=== PATIENT | female | born 1945 | race Caucasian/White ===

== ENCOUNTER 2017-01-14 09:06 | Outpatient (CLI) | payer MEDICARE, OTHER ==
[2017-01-14 09:33] LABS: CREATININE 0.8 mg/dL (0.4-1.0)
[2017-01-14] MEDS ORDERED: IOPAMIDOL-300 100 ML VIAL ONE (10:06)
[2017-01-14] MEDS ORDERED: IOPAMIDOL-300 100 ML VIAL IVP ONE (12:22)
--- NOTE | 2017-01-14 13:11 | CT Report ---
EXAM: CT CHEST EXAM DATE: 01/14/2017 12:18 PM. CLINICAL HISTORY: Abnormal chest x-ray with possible right lung mass. COMPARISONS: X-ray from 01/10/2017. TECHNIQUE: Routine helical CT imaging was performed through the chest. IV contrast: None. Reconstruct ions: Coronal and sagittal. In accordance with CT protocol optimization, one or more of the following dose reduction techniques w ere utilized for this exam: automated exposure control, adjustment of mA and/or KV based on patient s ize, or use of iterative reconstructive technique. FINDINGS: Lungs/Pleura: In a background of centrilobular emphysematous changes, there is a lobulated mass in th e right middle lobe measuring 5.2 x 5.4 x 4.3 cm. There are radiating spicules from the mass. Depende nt atelectatic changes otherwise seen at the lung bases. Mediastinum: Mildly prominent right hilar lymph node, measuring up to 1.3 cm in short axis dimension. Heart size grossly within normal limits. There is no pericardial effusion. Bones: Mild bony degenerative changes present. Visualized Abdomen: Unremarkable. Other: None. IMPRESSION: 1. In a background of centrilobular emphysematous changes, lobulated mass in the right middle lobe me asuring up to 5.4 cm suggestive of malignancy. There is associated mild right hilar lymph node promin ence measuring up to 1.3 cm in short axis dimension. 2. Mild bony degenerative changes [facility] Referring Provider Line: [phone] SITE ID: [id number]
== END 2017-01-14 09:07 | disposition home or self-care (01) ==
LOC: LAB 09:06
PROVIDERS: ATTEND Physician Assistant
DX: R91.8 Other nonspecific abnormal finding of lung field (principal); R80.9 Proteinuria, unspecified; R31.9 Hematuria, unspecified; Z87.891 Personal history of nicotine dependence
CPT/HCPCS: 71260; 82565; Q9967

== ENCOUNTER 2017-03-01 14:01 | Emergency (ER) | payer MEDICARE, OTHER ==
[2017-03-01] MEDS ORDERED: IOPAMIDOL-300 100 ML VIAL IVP ONE ×2 (14:02→15:07)
[2017-03-01] MEDS ORDERED: SODIUM CHLORIDE 0.9% 1,000 ML IV ONE ×2 (14:19)
[2017-03-01] MEDS ORDERED: IPRATROPIUM/ALBUTEROL 3 ML NEB INH STA (14:19)
--- NOTE | 2017-03-01 14:22 | ED Physician Documentation ---
PD HPI DYSPNEA - Stated complaint Stated Complaint: SOA - Chief complaint Chief Complaint: Resp - History obtained from History obtained from: Patient, Family - History of Present Illness Timing - onset: How many days ago (several) Timing - onset during: Rest Timing - duration: Days (several) Timing - details: Gradual onset Pain level max: 6 Pain level now: 6 Inciting event(s): URI (fever, cough) Improved by: Rest Worsened by: Exertion Associated symptoms: Fever (subjective), Cough, Wheezing, Chest pain / discomfort (pressure since yesterday) Recently seen: Other (bronchoscopy with biopsy on 02/23 at for a lung mass.) Review of Systems Ten Systems: 10 systems reviewed and negative Cardiac: reports: Chest pain / pressure Respiratory: reports: Cough GI: denies: Abdominal Pain, Nausea, Vomiting, Diarrhea Skin: denies: Rash Musculoskeletal: denies: Neck pain, Back pain Neurologic: denies: Headache PD PAST MEDICAL HISTORY - Past Medical History Past Medical History: Yes Other Past Medical History: possible lung CA getting worked up for it right now - Past Surgical History Past Surgical History: Yes HEENT: Tonsil/Adenoidectomy - Present Medications Home Medications: Ambulatory Orders Medication Instructions Recorded Confirmed Albuterol Sulf [Ventolin Hfa 2 puffs INH Q4HR PRN #1 inhaler 03/01/17 Inhaler] Hydrocodone/Acetaminophen 1 - 2 each PO Q6H PRN #10 tablet 03/01/17 [Hydrocodon-Acetaminophen 5-325] predniSONE [Prednisone] 40 mg PO DAILY #10 tablet 03/01/17 - Allergies Allergies/Adverse Reactions: Allergies Allergy/AdvReac Type Severity Reaction Status Date / Time ibuprofen Allergy Unknown Verified 03/01/17 14:09 Penicillins Allergy Unknown Verified 03/01/17 14:09 - Social History Does the pt smoke?: No Smoking Status: Never smoker Does the pt have substance abuse?: No - POLST Patient has POLST: No PD ED PE NORMAL - Vitals Vital signs reviewed: Yes - General General: Alert and oriented X 3, No acute distress - HEENT HEENT: Moist mucous membranes - Neck Neck: Supple, no meningeal sign - Cardiac Cardiac: Other (tachycardia) - Respiratory Respiratory: No respiratory distress, Other (wheezing B) - Abdomen Abdomen: Soft, Non tender, Non distended - Derm Derm: Warm and dry - Neuro Neuro: Alert and oriented X 3 - Psych Psych: Normal mood, Normal affect Results - Vitals Vitals: Vital Signs - 24 hr 03/01/17 03/01/17 03/01/17 14:04 14:25 14:37 Temperature 36.5 C Heart Rate 117 H 113 H 112 H Respiratory 22 18 18 Rate Blood Pressure 164/98 H 148/87 H O2 Saturation 97 96 03/01/17 03/01/17 03/01/17 15:03 15:51 16:24 Temperature Heart Rate 110 H 106 H 109 H Respiratory 18 19 20 Rate Blood Pressure 135/88 H 141/93 H O2 Saturation 98 95 94 Oxygen O2 Source Nasal cannula Oxygen Flow Rate 2 - EKG (time done) 1409 Rate: Rate (enter#) (114) Rhythm: Sinus tachycardia Gary: Normal Intervals: Normal SC QRS: Normal Ischemia: Normal ST segments, Q waves (II, III, aVF) Computer interpretation: Agree with computer - Labs Labs: Laboratory Tests 03/01/17 03/01/17 03/01/17 14:14 14:14 14:14 WBC 16.9 H RBC 4.84 Hgb 14.7 Hct 43.2 MCV 89.2 MCH 30.3 MCHC 33.9 RDW 13.1 Plt Count 251 MPV 7.7 L Neut # 14.4 H Lymph # 1.2 L Kings # 1.1 H Eos # 0.0 Baso # 0.1 Absolute Nucleated RBC 0.00 Nucleated RBC % 0.0 Sodium 136 Potassium 3.5 Chloride 100 L Carbon Dioxide 25 Anion Gap 11.0 BUN 10 Creatinine 0.8 Estimated GFR (MDRD) 70 L Glucose 124 H Calcium 9.5 Total Bilirubin 1.3 H AST 20 ALT 16 Alkaline Phosphatase 64 Troponin I < 0.04 Total Protein 8.0 Albumin 4.0 Globulin 4.0 Albumin/Globulin Ratio 1.0 Lipase 17 L Influenza A (Rapid) Influenza B (Rapid) Influenza Types A,B Ag 03/01/17 15:11 WBC RBC Hgb Hct MCV MCH MCHC RDW Plt Count MPV Neut # Lymph # Kings # Eos # Baso # Absolute Nucleated RBC Nucleated RBC % Sodium Potassium Chloride Carbon Dioxide Anion Gap BUN Creatinine Estimated GFR (MDRD) Glucose Calcium Total Bilirubin AST ALT Alkaline Phosphatase Troponin I Total Protein Albumin Globulin Albumin/Globulin Ratio Lipase Influenza A (Rapid) Negative Influenza B (Rapid) Negative Influenza Types A,B Ag - - Rads (name of study) CTPA Radiology: Prelim report reviewed, EMP read contemporaneously, See rad report ( No evidence of acute pulmonary embolism. . No evidence of thoracic aortic dissection. There is a lobulated mass within the right anterior chest. There is bibasilar atelectasis. ) PD MEDICAL DECISION MAKING - ED course Complexity details: reviewed results, re-evaluated patient, considered differential, d/w patient ED course: Patient is a 72-year-old female who presents to the emergency department with chest tightness and dyspnea. No evidence of pneumothorax, pulmonary embolus. She has been worked up for possible lung cancer and recently had the mass in the right lung biopsied. Feels better after steroids and nebulizer treatment. Will prescribe a small amount of pain medication for home. No evidence of acute coronary syndrome. Patient counseled regarding signs and symptoms for which I believe and urgent re-evaluation would be necessary. Patient with good understanding of and agreement to plan and is comfortable going home at this time This document was made in part using voice recognition software. While efforts are made to proofread this document, sound alike and grammatical errors may occur. Departure - Departure Disposition: Home, Self Care Clinical Impression: Mild chronic obstructive pulmonary disease Chest pain Qualifiers: Chest pain type: unspecified Qualified Code(s): R07.9 - Chest pain, unspecified Condition: Good Instructions: ED COPD Flare Follow-Up: ROBYN TOBIN MD [Primary Care Provider] - Within 1 week Prescriptions: Albuterol Sulf [Ventolin Hfa Inhaler] 2 puffs INH Q4HR PRN #1 inhaler PRN Reason: Wheezing Hydrocodone/Acetaminophen [Hydrocodon-Acetaminophen 5-325] 1 - 2 each PO Q6H PRN #10 tablet PRN Reason: pain predniSONE [Prednisone] 40 mg PO DAILY #10 tablet Comments: Return if you worsen. This should improve over the next few days. Do not drink alcohol or drive while on narcotic pain medicine. Note that many narcotic pain relievers also contain tylenol/acetaminophen. Please ensure that your total dose of acetaminophen from all sources does not exceed 3 grams (3000mg) per day. You may constipated on this medication, take a stool softener such as "Colace" twice a day while you are on it. Also recommend a eszh-xnv-[id number] laxative such as senna or MiraLAX any day that you do not have a bowel movement. If you received narcotic pain medication in the emergency department, do not drive or operate machinery for the next 24 hours. Discharge Date/Time: 03/01/17 17:19
[2017-03-01 14:25] LABS: BASOPHILS # (AUTO) 0.1 10^3/uL (0.0-0.1); BASOPHILS % (AUTO) 0.7 %; EOSINOPHILS % (AUTO) 0.3 %; HCT - HEMATOCRIT 43.2 % (37.0-47.0); HGB - HEMOGLOBIN 14.7 g/dL (12.0-16.0); LYMPHOCYTES # (AUTO) 1.2 10^3/uL (1.5-3.5); LYMPHOCYTES % (AUTO) 6.9 %; MEAN CORPUSCULAR HEMOGLOBIN 30.3 pg (27.0-31.0); MEAN CORPUSCULAR HGB CONC 33.9 g/dL (32.0-36.0); MEAN CORPUSCULAR VOLUME 89.2 fL (81.0-99.0); MEAN PLATELET VOLUME 7.7 fL (7.9-10.8); MONOCYTES # (AUTO) 1.1 10^3/uL (0.0-1.0); MONOCYTES % (AUTO) 6.7 %; NEUTROPHILS # (AUTO) 14.4 10^3/uL (1.5-6.6); NEUTROPHILS % (AUTO) 85.4 %; RED BLOOD COUNT 4.84 10^6/uL (4.20-5.40); RED CELL DISTRIBUTION WIDTH 13.1 % (12.0-15.0); UNCORRECTED WHITE BLOOD COUNT 16.9 x10^3/uL; WHITE BLOOD COUNT 16.9 x10^3/uL (4.8-10.8)
[2017-03-01 14:35] LABS: BILIRUBIN,TOTAL 1.3 mg/dL (0.2-1.0); CALCIUM 9.5 mg/dL (8.5-10.3); CREATININE 0.8 mg/dL (0.4-1.0); POTASSIUM 3.5 mmol/L (3.5-5.0)
[2017-03-01] MEDS ORDERED: IOPAMIDOL-300 100 ML VIAL ONE (14:35)
--- NOTE | 2017-03-01 15:29 | CT Preliminary Report ---
Exam: CT CHEST ANGIO (PE) IMPRESSION: 1. No evidence of acute pulmonary embolism. 2. No evidence of thoracic aortic dissection. 3. There is a lobulated mass within the right anterior chest. 4. There is bibasilar atelectasis. [facility] SITE ID: [id number]
--- NOTE | 2017-03-01 15:31 | CT Report ---
EXAM: CT ANGIOGRAM CHEST EXAM DATE: 03/01/2017 03:09 PM. CLINICAL HISTORY: Cough, dyspnea, recent lung biopsy. COMPARISON: 01/14/2017. TECHNIQUE: Routine helical imaging was performed through the chest in the pulmonary arterial phase. I V Contrast: 80 cc Isovue 300. Reconstructions: Coronal 3-D MIP reconstructions.Sagittal and coronal. In accordance with CT protocol optimization, one or more of the following dose reduction techniques w ere utilized for this exam: automated exposure control, adjustment of mA and/or KV based on patient s ize, or use of iterative reconstructive technique. FINDINGS: Pulmonary Arteries: Diagnostic quality: Adequate through the segmental arteries. No evidence for acute or chronic pulmona ry emboli. Lungs/Pleura: There is emphysema. There is a mass measuring 5.2 x 3.5 cm within the right anterior carmel ng. There is mild bibasilar atelectasis. No evidence of pleural effusion. No pneumothorax. Mediastinum: Heart size is within normal limits. There are no enlarged axillary, supraclavicular, med iastinal, or hilar lymph nodes. Subcentimeter mediastinal nodes are present. Thoracic Aorta: There is no evidence of thoracic aortic dissection or aneurysm. Upper Abdomen: Unremarkable. Other: None. IMPRESSION: 1. No evidence of acute pulmonary embolism. 2. No evidence of thoracic aortic dissection. 3. There is a lobulated mass within the right anterior chest. 4. There is bibasilar atelectasis. [facility] Referring Provider Line: [phone] SITE ID: [id number]
[2017-03-01] MEDS ORDERED: MORPHINE 10 MG/ML VIAL IVP STA (15:32)
[2017-03-01] MEDS ORDERED: DEXAMETHASONE 10 MG/ML VIAL IVP STA (15:33)
[2017-03-01] MEDS ORDERED: ONDANSETRON 4 MG/2 ML VIAL IVP STA (15:36)
[2017-03-01 16:52] VITALS: BP 141/93
== END 2017-03-01 17:19 | disposition home or self-care (01) ==
LOC: ED 14:01
DX: J44.9 Chronic obstructive pulmonary disease, unspecified (principal); R07.9 Chest pain, unspecified; R00.0 Tachycardia, unspecified
CPT/HCPCS: 36415; 71275; 80053; 83690; 84484; 85025; 87275; 87276; 93005; 94640; 96361; 96374; 96375; 99284; J7620; Q9967

== ENCOUNTER 2017-06-27 13:33 | Emergency (ER) | payer MEDICARE, OTHER ==
[2017-06-27 13:49] VITALS: BP 158/109
--- NOTE | 2017-06-27 13:59 | ED Physician Documentation ---
PD HPI LOWER EXT INJURY - Stated complaint Stated Complaint: GLF/LFT ANKLE PX - Chief complaint Chief Complaint: Ext Problem - History obtained from History obtained from: Patient, Friend - History of Present Illness PD HPI LOW EXT INJURY LOCATION: Other (She was chasing a chicken and her left foot went in a hole And now she has significant lateral left ankle pain and thinks she might have twisted her knee too. She is unable to walk or bear weight. No other injuries. She declines pain medications initially.) Review of Systems Constitutional: reports: Reviewed and negative Cardiac: reports: Reviewed and negative Respiratory: reports: Reviewed and negative PD PAST MEDICAL HISTORY - Past Medical History Past Medical History: Yes Other Past Medical History: Lung ca - Past Surgical History Past Surgical History: Yes HEENT: Tonsil/Adenoidectomy - Present Medications Home Medications: Ambulatory Orders Medication Instructions Recorded Confirmed Albuterol Sulf [Ventolin Hfa 2 puffs INH Q4HR PRN #1 inhaler 03/01/17 Inhaler] Hydrocodone/Acetaminophen 1 - 2 each PO Q6H PRN #10 tablet 03/01/17 [Hydrocodon-Acetaminophen 5-325] predniSONE [Prednisone] 40 mg PO DAILY #10 tablet 03/01/17 - Allergies Allergies/Adverse Reactions: Allergies Allergy/AdvReac Type Severity Reaction Status Date / Time ibuprofen Allergy Unknown Verified 03/01/17 14:09 Penicillins Allergy Unknown Verified 03/01/17 14:09 - Social History Does the pt smoke?: No Smoking Status: Never smoker Does the pt have substance abuse?: No - POLST Patient has POLST: No PD ED PE NORMAL - Vitals Vital signs reviewed: Yes - General General: Alert and oriented X 3, No acute distress - Extremities Extremities: Other (She is modestly tender at the proximal tibia of the left leg and significantly tender over the lateral malleolus. There is no foot for significant medial malleolar tenderness. There is no obvious deformity, but there is significant swelling over the lateral malleolus.) - Neuro Neuro: Alert and oriented X 3, Normal speech Results - Vitals Vitals: Vital Signs - 24 hr 06/27/17 13:47 Temperature 36.6 C Heart Rate 110 H Respiratory 18 Rate Blood Pressure 158/109 H O2 Saturation 96 Oxygen O2 Source Room air PD MEDICAL DECISION MAKING - ED course ED course: 72 yo woman undergoing chemo for lung CA with isolated LLE injury and Maisoneuve frx. Spoke with nursing home admissions director ortho, Dr Dana Thakur by phone regarding fracture pattern. Recommends airsplint and partial weightbearing LLE. Departure - Departure Disposition: 01 Home, Self Care Clinical Impression: Maisonneuve fracture of left fibula Qualifiers: Encounter type: initial encounter Fracture type: closed Fracture alignment: nondisplaced Qualified Code(s): S82.865A - Nondisplaced Dorineuvadiel's fracture of left leg, initial encounter for closed fracture Condition: Stable Record reviewed to determine appropriate education?: Yes Instructions: ED Fx Lower Ext Follow-Up: [facility] [Provider Group] - Within 1 week Comments: Elevate it, tylenol as needed for pain. Walk gingerly as able. Your blood pressure was elevated today on check into the emergency department. This does not mean that you have hypertension, it is a common phenomenon to come to the emergency department and have elevated blood pressure. I recommend that you see your primary care physician within the week to have it rechecked when you are feeling better.
[2017-06-27] MEDS ORDERED: ACETAMINOPHEN 325 MG TABLET PO STA (14:25)
--- NOTE | 2017-06-27 14:38 | XRAY Preliminary Report ---
Exam: XR ANKLE 3 VIEW LT IMPRESSION: 1. Posterior malleolus nondisplaced fracture of the inferior tibia. Mild widening of the ankle mortis e with mild lateral subluxation of the talus with respect to tibia. [facility] SITE ID: [id number]
--- NOTE | 2017-06-27 14:38 | XRAY Report ---
EXAM: LEFT ANKLE RADIOGRAPHY EXAM DATE: 06/27/2017 02:22 PM. CLINICAL HISTORY: Fall with ankle injury and pain. COMPARISON: None. TECHNIQUE: 3 views. FINDINGS: Bones: There is a minimal cortical step-off of the posterior malleolus of the inferior tibia on the l ateral image. Joints: There is mild widening of the ankle mortise with lateral talus subluxation on the AP image. Soft Tissues: There is soft tissue swelling at the ankle. IMPRESSION: 1. Posterior malleolus nondisplaced fracture of the inferior tibia. Mild widening of the ankle mortis e with mild lateral subluxation of the talus with respect to tibia. [facility] Referring Provider Line: [phone] SITE ID: [id number]
--- NOTE | 2017-06-27 14:41 | XRAY Preliminary Report ---
Exam: XR TIB/FIB LT IMPRESSION: 1. Superior fibula diaphysis fracture. 2. Widening of ankle mortise. [facility] SITE ID: [id number]
--- NOTE | 2017-06-27 14:41 | XRAY Report ---
EXAM: LEFT TIBIA/FIBULA RADIOGRAPHY EXAM DATE: 06/27/2017 02:22 PM. CLINICAL HISTORY: Leg inj. COMPARISON: None. TECHNIQUE: 2 views. FINDINGS: Bones: There is an oblique fracture of the superior fibula diaphysis. Joints: Alignment at the knee appears unremarkable. There is mild widening of the ankle mortise. Soft Tissues: There is soft tissue swelling at the ankle. IMPRESSION: 1. Superior fibula diaphysis fracture. 2. Widening of ankle mortise. [facility] Referring Provider Line: [phone] SITE ID: [id number]
== END 2017-06-27 15:09 | disposition home or self-care (01) ==
LOC: ED 13:33
DX: S82.865A Nondisplaced Maisonneuve's fracture of left leg, initial encounter for closed fracture (principal); X50.9XXA Other and unspecified overexertion or strenuous movements or postures, initial encounter; R03.0 Elevated blood-pressure reading, without diagnosis of hypertension; C34.90 Malignant neoplasm of unspecified part of unspecified bronchus or lung; Z92.21 Personal history of antineoplastic chemotherapy
CPT/HCPCS: 73590; 73610; 99283; A9270

== ENCOUNTER 2017-07-08 19:53 | Emergency (ER) | payer MEDICARE, OTHER ==
[2017-07-08 20:00] VITALS: BP 145/83
[2017-07-08] MEDS ORDERED: cephALEXin 250 MG CAPSULE PO STA (20:45)
--- NOTE | 2017-07-08 20:48 | ED Physician Documentation ---
PD HPI LOWER EXT INJURY - Stated complaint Stated Complaint: LT LEG SWOLLEN/RED - Chief complaint Chief Complaint: Ext Problem - History obtained from History obtained from: Patient - History of Present Illness PD HPI LOW EXT INJURY LOCATION: Other (She had a Maissoneuve fracture a little over a week ago. She has seen an orthopedic surgeon in the interim, she has had pain and swelling for which she declines pain medication. She had a negative ultrasound about a week ago. Charting today she has had redness and increased pain along the medial ankle. No fevers or chills. No shortness of breath or chest pain.) Review of Systems Constitutional: reports: Reviewed and negative Throat: reports: Reviewed and negative Cardiac: reports: Reviewed and negative Respiratory: reports: Reviewed and negative PD PAST MEDICAL HISTORY - Past Medical History Other Past Medical History: Lung cancer, on chemo - Past Surgical History Past Surgical History: Yes HEENT: Tonsil/Adenoidectomy - Present Medications Home Medications: Ambulatory Orders Medication Instructions Recorded Confirmed Albuterol Sulf [Ventolin Hfa 2 puffs INH Q4HR PRN #1 inhaler 03/01/17 Inhaler] Hydrocodone/Acetaminophen 1 - 2 each PO Q6H PRN #10 tablet 03/01/17 [Hydrocodon-Acetaminophen 5-325] predniSONE [Prednisone] 40 mg PO DAILY #10 tablet 03/01/17 Cephalexin [Keflex] 500 mg PO QID #40 capsule 07/08/17 - Allergies Allergies/Adverse Reactions: Allergies Allergy/AdvReac Type Severity Reaction Status Date / Time ibuprofen Allergy Unknown Verified 07/08/17 20:00 Penicillins Allergy Unknown Verified 07/08/17 20:00 - Social History Does the pt smoke?: No Smoking Status: Never smoker Does the pt have substance abuse?: No - POLST Patient has POLST: No PD ED PE NORMAL - Vitals Vital signs reviewed: Yes - General General: Alert and oriented X 3, No acute distress - Extremities Extremities: Other (There is a lot of tenderness and bruising about the left ankle and there is an area of what appears to be cellulitis over the medial ankle.) - Neuro Neuro: Alert and oriented X 3, Normal speech Results - Vitals Vitals: Vital Signs - 24 hr 07/08/17 19:54 Temperature 36.7 C Heart Rate 96 Respiratory 18 Rate Blood Pressure 145/83 H O2 Saturation 98 Oxygen O2 Source Room air - Rads (name of study) LLE DVT scan Radiology: EMP read contemporaneously (neg for DVT, Bakers cyst) Departure - Departure Disposition: Home, Self Care Clinical Impression: Cellulitis Qualifiers: Site of cellulitis: extremity Site of cellulitis of extremity: lower extremity Laterality: left Qualified Code(s): L03.116 - Cellulitis of left lower limb Condition: Good Record reviewed to determine appropriate education?: Yes Instructions: Cellulitis Dc Prescriptions: Cephalexin [Keflex] 500 mg PO QID #40 capsule Comments: Call your doctor to arrange a follow-up appointment, make the next available appointment. In the interim, return anytime if worse or if new symptoms develop. Your blood pressure was elevated today on check into the emergency department. This does not mean that you have hypertension, it is a common phenomenon to come to the emergency department and have elevated blood pressure. I recommend that you see your primary care physician within the week to have it rechecked when you are feeling better.
--- NOTE | 2017-07-08 22:35 | Ultrasound Report ---
EXAM: LEFT LOWER EXTREMITY VENOUS ULTRASOUND EXAM DATE: 07/08/2017 10:04 PM. CLINICAL HISTORY: Leg pain. COMPARISON: None. TECHNIQUE: Real-time sonographic vascular imaging was performed by the estimator printing plate making through the lower extremity utilizing both color-flow and Doppler spectral analysis. Multiple outbound telemarketing representative static salma ges were saved for review. FINDINGS: Common Femoral Vein (CFV): Normal. CFV-GSV Junction: Normal. Profunda Femoral Vein (PFV): Normal. Femoral Vein (FV) Prox: Normal. Femoral Vein (FV) Mid: Normal. Femoral Vein (FV) Dist: Normal. Popliteal Vein: Normal. Posterior Tibial Veins: Normal. Peroneal Veins: Normal. Other: Popliteal fluid collection noted 3.0 x 1.6 x 2.1 cm. IMPRESSION: 1. No evidence for deep venous thrombosis. 2. Left Andersen's cyst. [facility] Referring Provider Line: [phone] SITE ID: [id number]
== END 2017-07-08 22:30 | disposition home or self-care (01) ==
LOC: ED 19:53
DX: L03.116 Cellulitis of left lower limb (principal); R03.0 Elevated blood-pressure reading, without diagnosis of hypertension; C34.90 Malignant neoplasm of unspecified part of unspecified bronchus or lung; Z79.899 Other long term (current) drug therapy
CPT/HCPCS: 93971; 99282; 99283; A9270

== ENCOUNTER 2017-07-14 16:14 | Inpatient (IN) | payer MEDICARE, OTHER ==
[2017-07-14 16:57] LABS: BASOPHILS % (AUTO) 1.4 %; EOSINOPHILS % (AUTO) 0.1 %; HGB - HEMOGLOBIN 11.3 g/dL (12.0-16.0); LYMPHOCYTES # (AUTO) 0.7 10^3/uL (1.5-3.5); LYMPHOCYTES % (AUTO) 30.6 %; MEAN CORPUSCULAR HEMOGLOBIN 28.7 pg (27.0-31.0); MEAN CORPUSCULAR HGB CONC 33.7 g/dL (32.0-36.0); MEAN CORPUSCULAR VOLUME 85.1 fL (81.0-99.0); MEAN PLATELET VOLUME 7.3 fL (7.9-10.8); MONOCYTES # (AUTO) 0.5 10^3/uL (0.0-1.0); MONOCYTES % (AUTO) 20.1 %; NEUTROPHILS # (AUTO) 1.2 10^3/uL (1.5-6.6); NEUTROPHILS % (AUTO) 47.8 %; PLT - PLATELET COUNT 195 10^3/uL (130-450); RED BLOOD COUNT 3.95 10^6/uL (4.20-5.40); RED CELL DISTRIBUTION WIDTH 15.7 % (12.0-15.0); WHITE BLOOD COUNT 2.4 x10^3/uL (4.8-10.8)
[2017-07-14 17:07] LABS: ALBUMIN/GLOBULIN RATIO 1.4 (1.0-2.2); BILIRUBIN,TOTAL 0.8 mg/dL (0.2-1.0); CALCIUM 9.1 mg/dL (8.5-10.3); TOTAL PROTEIN 6.9 g/dL (6.7-8.2)
[2017-07-14 17:23] LABS: PLATELET ESTIMATE, MANUAL NORMAL (130-450,000) (NORMAL); PLATELET MORPHOLOGY NORMAL APPEARANCE (NORMAL)
[2017-07-14] MEDS ORDERED: VANCOMYCIN INJ 1 GM in SODIUM CHLORIDE 0.9% 500 ML IV STA (19:38)
[2017-07-14] MEDS ORDERED: PIPERACILLIN/TAZOBACTAM 3.375 GM in SODIUM CHLORIDE 0.9% MINIBAG 100 ML IV STA (19:38)
--- NOTE | 2017-07-14 19:41 | ED Physician Documentation ---
History of Present Illness - Stated complaint Stated Complaint: L LEG PX/SWELLING - Chief complaint Chief Complaint: Wound - Additonal information Additional information: hx from pt 72 f on chemo for lung cancer - thus immunocompromised L fibula fx 2.5 weeks ago - seen by ortho at [facility] and walking boot was recomemnded tx developed redness pain around medial mall 5 days ago seen in ED sono neg for DVT dx cellultis and dc on keflex has continued to worsen on oral antibiotics chills no fever Review of Systems Constitutional: reports: Chills. denies: Fever Cardiac: denies: Chest pain / pressure Respiratory: denies: Dyspnea, Cough GI: denies: Vomiting Skin: reports: Rash Musculoskeletal: reports: Extremity pain Endocrine: denies: Weight gain Immunocompromised: reports: Immunocompromised PD PAST MEDICAL HISTORY - Past Medical History Past Medical History: Yes Respiratory: Other Other Past Medical History: Current lung cancer. - Past Surgical History Past Surgical History: Yes HEENT: Tonsil/Adenoidectomy - Present Medications Home Medications: Ambulatory Orders Medication Instructions Recorded Confirmed Albuterol Sulf [Ventolin Hfa 2 puffs INH Q4HR PRN #1 inhaler 03/01/17 Inhaler] Hydrocodone/Acetaminophen 1 - 2 each PO Q6H PRN #10 tablet 03/01/17 [Hydrocodon-Acetaminophen 5-325] predniSONE [Prednisone] 40 mg PO DAILY #10 tablet 03/01/17 Cephalexin [Keflex] 500 mg PO QID #40 capsule 07/08/17 - Allergies Allergies/Adverse Reactions: Allergies Allergy/AdvReac Type Severity Reaction Status Date / Time ibuprofen Allergy Unknown Verified 07/14/17 16:34 - Social History Does the pt smoke?: No Smoking Status: Never smoker Does the pt drink ETOH?: No Does the pt have substance abuse?: No - Immunizations Immunizations are current?: Yes - POLST Patient has POLST: No PD ED PE NORMAL - Vitals Vital signs reviewed: Yes - Cardiac Cardiac: RRR - Respiratory Respiratory: No respiratory distress, Clear bilaterally - Abdomen Abdomen: Soft, Non tender - Extremities Extremities: Other (erythema warmth and TTP centered around medial mall but with expanding lines drawn by medical staff as it has progressed over the last few days and even hr, no crepitus necrosis or bullae, no open wounds, aged bruising, MSV intact) - Neuro Neuro: Alert and oriented X 3, No motor deficit, No sensory deficit Results - Vitals Vitals: Vital Signs - 24 hr 07/14/17 07/14/17 07/14/17 16:32 19:17 19:38 Temperature 36.7 C 37.0 C Heart Rate 105 H 108 H 106 H Respiratory 18 18 17 Rate Blood Pressure 145/91 H 138/92 H O2 Saturation 98 98 96 07/14/17 07/14/17 07/14/17 19:39 19:59 20:13 Temperature Heart Rate Respiratory 17 17 Rate Blood Pressure 122/84 H O2 Saturation Oxygen O2 Source Room air - Labs Labs: Laboratory Tests 07/14/17 07/14/17 07/14/17 16:48 16:48 17:27 WBC 2.4 L RBC 3.95 L Hgb 11.3 L Hct 33.6 L MCV 85.1 MCH 28.7 MCHC 33.7 RDW 15.7 H Plt Count 195 MPV 7.3 L Neut # 1.2 L Lymph # 0.7 L [place] # 0.5 Eos # 0.0 Baso # 0.0 Absolute Nucleated RBC 0.00 Nucleated RBC % 0.1 Manual Slide Review Indicated Platelet Estimate NORMAL (130-450,000) Platelet Morphology NORMAL APPEARANCE RBC Morph Micro Appear 1+ HYPOCHROMASIA Sodium 137 Potassium 4.3 Chloride 105 Carbon Dioxide 26 Anion Gap 6.0 BUN 26 H Creatinine 1.0 Estimated GFR (MDRD) 54 L Glucose 94 Lactic Acid 0.8 Calcium 9.1 Total Bilirubin 0.8 AST 15 ALT 20 Alkaline Phosphatase 73 Total Protein 6.9 Albumin 4.0 Globulin 2.9 Albumin/Globulin Ratio 1.4 Lipase 20 L PD MEDICAL DECISION MAKING - ED course ED course: immunocompromised neutropenic with cellulitis failing outpt tx, tachy but lactate neg no hx MRSA but has been in health facilities gave latricia perales will admit Departure - Departure Disposition: 66 [facility] DC/Xfer Clinical Impression: Cellulitis Qualifiers: Site of cellulitis: extremity Site of cellulitis of extremity: lower extremity Laterality: right Qualified Code(s): L03.115 - Cellulitis of right lower limb Neutropenic Qualifiers: Neutropenia type: secondary to cancer chemotherapy Qualified Code(s): D70.1 - Agranulocytosis secondary to cancer chemotherapy Condition: Good
[2017-07-14] MEDS ORDERED: VANCOMYCIN 1 GM VIAL ONE (19:52)
[2017-07-14] MEDS ORDERED: oxyCODONE 5 MG TABLET PO PRN (21:27)
[2017-07-14] MEDS ORDERED: ONDANSETRON 4 MG/2 ML VIAL IVP PRN (21:27)
[2017-07-14] MEDS ORDERED: ACETAMINOPHEN 325 MG TABLET PO PRN (21:27)
[2017-07-14] MEDS ORDERED: SODIUM CHLORIDE FLUSH 0.9% 10 ML SYRINGE IVP PRN (21:27)
[2017-07-14] MEDS ORDERED: ALBUTEROL SULF INH PRN (23:52)
[2017-07-14] MEDS ORDERED: ALBUTEROL 6.7 GM INHALER INH PRN (23:58)
[2017-07-15] MEDS: PIPERACILLIN/TAZOBACTAM 3.375 GM in SODIUM CHLORIDE 0.9% MINIBAG 100 ML IV SCH ×4 (02:28→21:00)
[2017-07-15] MEDS: SODIUM CHLORIDE FLUSH 0.9% 10 ML SYRINGE IVP SCH ×3 (02:28→20:59)
--- NOTE | 2017-07-15 03:18 | HISTORY & PHYSICAL EXAMINATION ---
DATE OF SERVICE: 07/14/2017 Physician: Grace Sabillon MD PRIMARY CARE PROVIDER: Letitia Garcia CHIEF COMPLAINT: Left ankle redness, pain and swelling. HISTORY OF PRESENT ILLNESS: Patient is a pleasant, 72-year-old, white female who is fully functional, still rides horses, drives, and had no past medical problems before February 2017. At that time, she was diagnosed with lung cancer, was found with a right lung mass, underwent bronchoscopy and biopsy at [facility] in February 2017. Subsequently, she developed post procedural complication of empyema. In March 2017, underwent lobectomy and lung resection for the empyema plus for lung cancer as well. She was on 6 weeks IV antibiotic therapy. Subsequently, a few weeks ago, she was started on chemotherapy and finished the third cycle. She has one more cycle to complete. She does not have a central line and receives chemotherapy via peripheral line. She presented to the ER first on June 27 with a proximal fibular fracture. She suffered a fracture as a result of mechanical fall and I refer the reader to ER physician's documentation. Briefly, the case was discussed with Orthopedic Surgery. Splinting and partial weightbearing was recommended, and patient had outpatient followup for this problem. Subsequently, she noticed redness, swelling and pain developing far away from the fracture at the left medial ankle. For that problem, she was seen in the ER on July 08, about a week ago. She was diagnosed with cellulitis and she was prescribed Keflex. She underwent ultrasound of the left lower extremity, which ruled out DVT. During the past week, she had been taking the Keflex as prescribed. However, regardless, the redness, swelling and pain at the ankle got worse, extended beyond the skin markings. Therefore, patient returned back to the ER today and got reevaluated. She was found with worsening and spreading cellulitis. In addition, she was found with neutropenia. White blood cell count was 2.4, which decreased from 16. In addition, there was anemia with hemoglobin of 11.3, platelet count was 195, the absolute neutrophil count was 1.2. Creatinine was 1, BUN was 26. Laboratories were otherwise unremarkable. At the ER, patient was tachycardic with heart rate of around 100. She had elevated temperature of 37.1 Celsius. Her blood pressure was normal at 130/80. Room air oxygen saturation was 97% with respiratory rate of 18. PAST MEDICAL HISTORY 1. Gastroesophageal reflux. 2. History of lung cancer, on chemotherapy. Details regarding the course listed at history of present illness. REVIEW OF SYSTEMS: Please see pertinent positives listed above at history of present illness. Patient did not report additional complaint on the 12-point review. In particular, she denied constipation or diarrhea. She reported sometimes having nausea following chemotherapy, but no vomiting. On complete 12-point review, there was no additional complaint. FAMILY HISTORY: Positive for longevity. Patient's relatives lived mostly up to their late 80s or early 90s. Her father had stomach cancer, but he survived. Mother had bone cancer and at age 83. SOCIAL HISTORY: Patient used to smoke; however, she was more of a social smoker , never a heavy smoker. She quit 27 years ago. She does not use any assistive device to ambulate. She still drives and rides horses. OUTPATIENT MEDICATIONS Medication list is not yet verified. Prior to admission, patient was on: 1. Keflex. 2. Vicodin. 3. Albuterol. 4. She took prednisone just for a few days with chemotherapy cycles. PHYSICAL EXAMINATION VITAL SIGNS: Please see listed above at history of present illness. GENERAL: Patient is a well-developed female who was not in distress. CARDIOVASCULAR: S1, S2. Regular, tachycardia. No obvious murmur. RESPIRATORY: Clear to auscultation without wheezes or crackles. No increased work of breathing. ABDOMEN: Soft, benign, nontender. Normal bowel tones. LYMPHATIC: Left lower extremity is swollen. There is no lymphedema on the right. MUSCULOSKELETAL: Left lower extremity with bruises above the mid woods and cellulitis at the medial left ankle. SKIN: Pallor. No jaundice. Oral mucosa without ulcers or thrush. NEUROLOGIC: Alert, oriented, nonfocal. PSYCHIATRIC: Cooperative. ASSESSMENT AND PLAN/ACTIVE ISSUES/DIAGNOSES 1. Failed outpatient treatment of cellulitis. 2. Left lower extremity/left medial ankle cellulitis. 3. Neutropenia and elevated temperature/fever. 4. Systemic inflammatory response with tachycardia. 5. Anemia, on chemotherapy. PLAN AND ORDERS 1. Patient is getting admitted as inpatient. We will continue treatment with IV antibiotics, which will include Zosyn. Blood cultures were already sent. We will add MRSA screen. If MRSA screen positive, then we will continue vancomycin; if negative, then we will continue on the Zosyn and add vancomycin only if patient does not respond. Neutropenic precautions. 2. Given neutropenic fever, we will add a chest x-ray. I will also add x-ray of the left foot to make sure that there is no foreign body or any additional complication such as fracture. 3. FULL CODE status, which was discussed with patient. 4. DVT prophylaxis. 5. Incentive spirometry, continue albuterol. 6. Pain control. ATTESTATION: I certify that the reasonable expectation is that this patient stays hospitalized for at least 48 hrs, but gets discharged or transferred to another facility in 96 hrs. Time spent in the care of this patient was 60 minutes. TD: 07/15/2017 03:18 PIPE
[2017-07-15 06:19] LABS: BASOPHILS % (AUTO) 1.3 %; EOSINOPHILS % (AUTO) 0.1 %; HGB - HEMOGLOBIN 9.6 g/dL (12.0-16.0); LYMPHOCYTES # (AUTO) 0.7 10^3/uL (1.5-3.5); LYMPHOCYTES % (AUTO) 35.5 %; MEAN CORPUSCULAR HEMOGLOBIN 28.4 pg (27.0-31.0); MEAN CORPUSCULAR HGB CONC 33.1 g/dL (32.0-36.0); MEAN CORPUSCULAR VOLUME 85.8 fL (81.0-99.0); MONOCYTES # (AUTO) 0.4 10^3/uL (0.0-1.0); MONOCYTES % (AUTO) 22.6 %; NEUTROPHILS # (AUTO) 0.8 10^3/uL (1.5-6.6); NEUTROPHILS % (AUTO) 40.5 %; PLT - PLATELET COUNT 150 10^3/uL (130-450); RED BLOOD COUNT 3.38 10^6/uL (4.20-5.40); RED CELL DISTRIBUTION WIDTH 15.7 % (12.0-15.0)
[2017-07-15 06:24] LABS: WHITE BLOOD COUNT 1.9 x10^3/uL (4.8-10.8)
[2017-07-15] MEDS ORDERED: ALBUTEROL NEB 2.5 MG/3 ML INH PRN (07:14)
[2017-07-15 08:16] LABS: PLATELET ESTIMATE, MANUAL NORMAL (130-450,000) (NORMAL)
[2017-07-15] MEDS: POLYETHYLENE GLYCOL 3350 17 GM PACKET PO SCH (09:05)
--- NOTE | 2017-07-15 10:08 | XRAY Report ---
EXAM: LEFT FOOT RADIOGRAPHY EXAM DATE: 07/15/2017 08:48 AM. CLINICAL HISTORY: ? foreign body or fracture. COMPARISON: None. TECHNIQUE: 2 views. FINDINGS: Bones: Normal. No fractures or bone lesions. Joints: Moderate degenerative changes along the dorsal aspect of the midfoot. No periarticular erosio ns. Soft Tissues: Marked soft tissue swelling along the dorsal aspect of the forefoot. No radiopaque fore ign body identified. IMPRESSION: 1. Soft tissue swelling along the dorsal aspect of the forefoot. No radiopaque foreign body identifie d. 2. No fracture. 3. Moderate degenerative changes along the dorsal aspect of the midfoot with no periarticular erosion s identified. [facility] Referring Provider Line: [phone] SITE ID: [id number]
--- NOTE | 2017-07-15 10:08 | XRAY Preliminary Report ---
Exam: XR FOOT 2 VIEW LT IMPRESSION: 1. Soft tissue swelling along the dorsal aspect of the forefoot. No radiopaque foreign body identifie d. 2. No fracture. 3. Moderate degenerative changes along the dorsal aspect of the midfoot with no periarticular erosion s identified. [facility] SITE ID: [id number]
--- NOTE | 2017-07-15 10:12 | XRAY Preliminary Report ---
Exam: XR CHEST 2 VIEW X-RAY IMPRESSION: 1. Interval resection of the right middle lobe with postsurgical changes in the right hilum. 2. No new focal consolidation. 3. Small right-sided pleural effusion. Superimposed infectious process cannot be excluded. [facility] SITE ID: [id number]
--- NOTE | 2017-07-15 10:12 | XRAY Report ---
EXAM: CHEST RADIOGRAPHY EXAM DATE: 07/15/2017 08:48 AM. CLINICAL HISTORY: Neutropenia and fever. COMPARISON: Chest radiograph dated 01/10/2017. TECHNIQUE: 2 views. FINDINGS: Lungs/Pleura: Status post interval right middle lobe resection. Small right-sided pleural effusion. N o new focal consolidation. Mediastinum: Heart and mediastinal contours are unremarkable. Other: None. IMPRESSION: 1. Interval resection of the right middle lobe with postsurgical changes in the right hilum. 2. No new focal consolidation. 3. Small right-sided pleural effusion. Superimposed infectious process cannot be excluded. [facility] Referring Provider Line: [phone] SITE ID: [id number]
--- NOTE | 2017-07-15 13:50 | PROVIDER PROGRESS NOTE ---
Subjective - Prog Note Date Prog Note Date: 07/15/17 Prog Note Time: 13:47 - Subjective Pt reports feeling: Improved Subjective: Nina claims that her cellulitis is much improved since coming to the ED. She denies SOB, chest pain, N/V or a new cough. Current Medications - Current Medications Current Medications: Active Medications Acetaminophen (Tylenol) 650 mg PO Q4HR PRN PRN Reason: Pain 1 to 4 Albuterol () 2.5 mg INH Q4H PRN PRN Reason: SHORTNESS OF BREATH Enoxaparin Sodium (Lovenox) 40 mg SUBQ DAILY [facility] Last Admin: 07/16/17 08:58 Dose: 40 mg Piperacillin Sod/Tazobactam (Sod 3.375 gm/ Sodium Chloride) 100 mls @ 200 mls/ hr IV Q6H [facility] Last Infusion: 07/16/17 10:30 Dose: Infused Lactobacillus Rhamnosus (Culturelle) 1 cap PO BID [facility] Last Admin: 07/16/17 08:58 Dose: 1 cap Ondansetron HCl (Zofran Inj) 4 mg IVP Q6HR PRN PRN Reason: Nausea / Vomiting Oxycodone HCl (Roxicodone) 5 mg PO Q4HR PRN PRN Reason: Pain 5 to 7 Oxymetazoline HCl (Afrin) 2 sprays VIPUL BID [facility] Stop: 07/17/17 13:59 Last Admin: 07/16/17 09:03 Dose: Not Given Polyethylene Glycol (Miralax) 17 gm PO DAILY [facility] Last Admin: 07/16/17 09:03 Dose: Not Given Psyllium Hydrophilic Mucilloid (Metamucil) 1 packet PO DAILY PRN PRN Reason: Constipation Ranitidine HCl (Zantac) 150 mg PO BID [facility] Last Admin: 07/16/17 08:58 Dose: 150 mg Sodium Chloride (Normal Saline Flush 0.9%) 10 ml IVP PRN PRN PRN Reason: NEEDED PER PROVIDER ORDERS Last Admin: 07/16/17 02:02 Dose: 10 ml Sodium Chloride (Normal Saline Flush 0.9%) 10 ml IVP 0100,0900,1700 [facility] Last Admin: 07/16/17 09:03 Dose: 10 ml Sodium Chloride ([place]) 2 sprays VIPUL Q4HR PRN PRN Reason: Nasal Congestion Last Admin: 07/16/17 09:01 Dose: 2 sprays No Known Home Medications [No Known Home Medications] 07/15/17 Objective - Vital Signs/Intake & Output Vital Signs: Vital Signs x48h Temp Pulse Resp BP Pulse Ox 07/15/17 08:43 36.5 C 98 16 130/81 H 99 Intake & Output: Intake & Output 07/12/17 07/13/17 07/14/17 07/15/17 23:59 23:59 23:59 23:59 Intake Total 600 590 Balance 600 590 - Objective General Appearance: positive: No acute distress, Alert Eyes Bilateral: positive: Normal inspection, PERRL, No lid inflammation, Conjunctivae nml, No scleral icterus Eyes: OU Conjunctivae pale ENT: positive: ENT inspection nml, Pharynx nml, No signs of dehydration, Pharyngeal erythema, Dry mucous membranes Neck: positive: Nml inspection, Thyroid nml, No JVD, Trachea midline Respiratory: positive: Chest non-tender, No respiratory distress, Breath sounds nml Cardiovascular: positive: Regular rate & rhythm, No gallop, Systolic murmur, Decreased pulse(s) Peripheral Pulses: 1+ Popliteal (R), 1+ Popliteal (L), 2+ Radial (R), 2+ Radial (L) Abdomen: positive: Non-tender, No organomegaly, Nml bowel sounds, No distention Back: positive: Nml inspection Skin: positive: No rash, Warm, Dry Extremities: positive: Non-tender, Full ROM, Pedal edema (BLE chronic edema, discoloration. LLE with erythema, swelling. Cellulitis on inner ankle of left foot. Recent fracture.), Joint swelling Neurologic/Psychiatric: positive: Oriented x3, CN's nml (2-12), Motor nml, Sensation nml, Mood/affect nml Reflexes: Bicep (R): 4+, Bicep (L): 4+ - Lab Results Fish Bones: 07/16/17 05:45 07/16/17 05:45 Other Labs: Lab Results x24hrs 07/15/17 Range/Units 06:07 WBC 1.9 L* (4.8-10.8) x10^3/uL RBC 3.38 L (4.20-5.40) 10^6/uL Hgb 9.6 L (12.0-16.0) g/dL Hct 29.0 L (37.0-47.0) % MCV 85.8 (81.0-99.0) fL MCH 28.4 (27.0-31.0) pg MCHC 33.1 (32.0-36.0) g/dL RDW 15.7 H (12.0-15.0) % Plt Count 150 (130-450) 10^3/uL MPV 7.0 L (7.9-10.8) fL Neut # 0.8 L (1.5-6.6) 10^3/uL Lymph # 0.7 L (1.5-3.5) 10^3/uL Esmeralda # 0.4 (0.0-1.0) 10^3/uL Eos # 0.0 (0.0-0.7) 10^3/uL Baso # 0.0 (0.0-0.1) 10^3/uL Absolute Nucleated RBC 0.00 x10^3/uL Band Neuts % (Manual) Not Reportable Abnorm Lymph % (Manual) Not Reportable Nucleated RBC % 0.0 /100WBC Neutrophils # (Manual) Not Reportable Lymphocytes # (Manual) Not Reportable Monocytes # (Manual) Not Reportable Eosinophils # (Manual) Not Reportable Basophils # (Manual) Not Reportable Manual Slide Review Indicated WBC Morphology 1+ SMUDGE CELLS (NORMAL) Platelet Estimate NORMAL (130-450,000) (NORMAL) RBC Morph Micro Appear 1+ MICROCYTOSIS (NORMAL) - Diagnostic Imaging Diagnostic Imaging Results: positive: Final report reviewed ABX Reporting Has patient been on IV antibiotics over the past 48 hours?: Yes Assessment/Plan - Problem List (1) Left leg cellulitis Impression: The patient noticed that her left inner ankle was more swollen and red than usual. This became worse, so she was treated out patient with Keflex. She developed a fever, so is now admitted to the hospital. As per nursing, the redness has improved since the time of admit. There are wound edge markers, that do appear to be reduced. She states that the pain leading up to this admission was not an issue. A complicating factor is that 2 months ago she suffered a fibula fx of her left leg and remains with extensive bruising on her left calf and ankle. She has been wearing a brace for ambulating which may have led to the skin breakdown associated with her current infection. Plan: IV zosyn, monitor labs. (2) Cancer of right lung Impression: The patient is post right lobectomy in which they removed the right upper and right lower lobes. She remains without complications and just a scar on her torso-back. She notes that this was Stage IIIA. She states that she continues to get chemo therapy and her next treatment is planned for next Monday. Plan: Continue to monitor. Qualifiers: Lung location: upper lobe of lung Qualified Code(s): C34.11 - Malignant neoplasm of upper lobe, right bronchus or lung (3) Neutropenic Impression: The patient is a current chemo therapy recipient for her stage 3 lung CA, and her neutropenia is an expected finding. Plan: Continue neutropenic precautions and monitor daily labs. Qualifiers: Neutropenia type: secondary to cancer chemotherapy Qualified Code(s): D70.1 - Agranulocytosis secondary to cancer chemotherapy; T45.1X5A - Adverse effect of antineoplastic and immunosuppressive drugs, initial encounter; T45.1X5A - Adverse effect of antineoplastic and immunosuppressive drugs, initial encounter (4) Maisonneuve fracture of left fibula Impression: The patient described that a few months ago she suffered a left fibula fx after accidentally stepping into a hole. There was no surgery indicated and she has been wearing a support boot for the course of treatment. The boot may have caused this cellulitis with the ankle being swollen. Plan: Continue to monitor. Qualifiers: Encounter type: initial encounter Fracture type: closed Fracture alignment: nondisplaced Qualified Code(s): S82.865A - Nondisplaced Maisonneuve 's fracture of left leg, initial encounter for closed fracture (5) Mild chronic obstructive pulmonary disease Impression: The patient admits to a lone tobacco abuse history and the skin on her face appears weathered. She no longer smokes, and has right lung cancer as a consequence. For her COPD, she takes chronic LABA inhalers, with a rescue inhaler. Her lungs are clear today. Even with her recent lobectomy in March , her lungs have nicely filled in the lung cavity to make up for this. Plan: Continue respiratory care and treat acute illness.
[2017-07-15] MEDS ORDERED: SODIUM CHLORIDE 0.65% NASAL SPRAY NAS PRN (13:58)
[2017-07-15] MEDS ORDERED: PSYLLIUM PACKET PO PRN (14:04)
[2017-07-15] MEDS: ENOXAPARIN 40 MG/0.4 ML SYRINGE SUBQ SCH (14:21)
[2017-07-15] MEDS: OXYMETAZOLINE NASAL SPRAY NAS SCH ×3 (14:25→21:10)
[2017-07-15] MEDS: LACTOBACILLUS RHAMNOSUS GG CAPSULE PO SCH (21:00)
[2017-07-16] MEDS: PIPERACILLIN/TAZOBACTAM 3.375 GM in SODIUM CHLORIDE 0.9% MINIBAG 100 ML IV SCH ×3 (01:18→14:09)
[2017-07-16] MEDS: SODIUM CHLORIDE FLUSH 0.9% 10 ML SYRINGE IVP SCH ×3 (01:18→18:10)
[2017-07-16 06:11] LABS: BASOPHILS % (AUTO) 1.1 %; EOSINOPHILS % (AUTO) 0.1 %; HGB - HEMOGLOBIN 9.6 g/dL (12.0-16.0); LYMPHOCYTES # (AUTO) 0.8 10^3/uL (1.5-3.5); LYMPHOCYTES % (AUTO) 34.7 %; MEAN CORPUSCULAR HEMOGLOBIN 28.4 pg (27.0-31.0); MEAN CORPUSCULAR HGB CONC 33.3 g/dL (32.0-36.0); MEAN CORPUSCULAR VOLUME 85.4 fL (81.0-99.0); MEAN PLATELET VOLUME 6.7 fL (7.9-10.8); MONOCYTES # (AUTO) 0.5 10^3/uL (0.0-1.0); MONOCYTES % (AUTO) 19.7 %; NEUTROPHILS % (AUTO) 44.4 %; PLT - PLATELET COUNT 161 10^3/uL (130-450); RED BLOOD COUNT 3.39 10^6/uL (4.20-5.40); RED CELL DISTRIBUTION WIDTH 15.8 % (12.0-15.0); WHITE BLOOD COUNT 2.3 x10^3/uL (4.8-10.8)
[2017-07-16 06:22] LABS: ALBUMIN/GLOBULIN RATIO 1.2 (1.0-2.2); BILIRUBIN,TOTAL 1.1 mg/dL (0.2-1.0); CALCIUM 8.7 mg/dL (8.5-10.3); CREATININE 1.1 mg/dL (0.4-1.0); TOTAL PROTEIN 5.6 g/dL (6.7-8.2)
[2017-07-16] MEDS: LACTOBACILLUS RHAMNOSUS GG CAPSULE PO SCH ×2 (08:58→21:58)
[2017-07-16] MEDS: ENOXAPARIN 40 MG/0.4 ML SYRINGE SUBQ SCH (08:58)
[2017-07-16] MEDS: POLYETHYLENE GLYCOL 3350 17 GM PACKET PO SCH (09:03)
[2017-07-16] MEDS: OXYMETAZOLINE NASAL SPRAY NAS SCH ×2 (09:03→21:57)
--- NOTE | 2017-07-16 12:52 | PROVIDER PROGRESS NOTE ---
Subjective - Prog Note Date Prog Note Date: 07/16/17 Prog Note Time: 12:52 - Subjective Pt reports feeling: No change Subjective: Nina is disappointed in the lack of improvement of her LLE cellulitis and has been suspicious of having "bone fragments floating around in her ankle". She denies SOB, chest pain, N/V or a new cough. Current Medications - Current Medications Current Medications: Active Medications Acetaminophen (Tylenol) 650 mg PO Q4HR PRN PRN Reason: Pain 1 to 4 Albuterol () 2.5 mg INH Q4H PRN PRN Reason: SHORTNESS OF BREATH Enoxaparin Sodium (Lovenox) 40 mg SUBQ DAILY [facility] Last Admin: 07/16/17 08:58 Dose: 40 mg Cefepime HCl 2 gm/ Sodium (Chloride) 100 mls @ 200 mls/hr IV BID [facility] Vancomycin HCl 100 gm/ Sodium (Chloride) 250 mls @ 167 mls/hr IV Q400H [facility] Lactobacillus Rhamnosus (Culturelle) 1 cap PO BID [facility] Last Admin: 07/16/17 08:58 Dose: 1 cap Ondansetron HCl (Zofran Inj) 4 mg IVP Q6HR PRN PRN Reason: Nausea / Vomiting Oxycodone HCl (Roxicodone) 5 mg PO Q4HR PRN PRN Reason: Pain 5 to 7 Oxymetazoline HCl (Afrin) 2 sprays VIPUL BID [facility] Stop: 07/17/17 13:59 Last Admin: 07/16/17 09:03 Dose: Not Given Polyethylene Glycol (Miralax) 17 gm PO DAILY [facility] Last Admin: 07/16/17 09:03 Dose: Not Given Psyllium Hydrophilic Mucilloid (Metamucil) 1 packet PO DAILY PRN PRN Reason: Constipation Ranitidine HCl (Zantac) 150 mg PO BID [facility] Last Admin: 07/16/17 08:58 Dose: 150 mg Sodium Chloride (Normal Saline Flush 0.9%) 10 ml IVP PRN PRN PRN Reason: NEEDED PER PROVIDER ORDERS Last Admin: 07/16/17 02:02 Dose: 10 ml Sodium Chloride (Normal Saline Flush 0.9%) 10 ml IVP 0100,0900,1700 [facility] Last Admin: 07/16/17 09:03 Dose: 10 ml Sodium Chloride ([place] [address] [place]) 2 sprays VIPUL Q4HR PRN PRN Reason: Nasal Congestion Last Admin: 07/16/17 09:01 Dose: 2 sprays No Known Home Medications [No Known Home Medications] 07/15/17 Objective - Vital Signs/Intake & Output Reviewed Vital Signs: Yes Vital Signs: Vital Signs x48h Temp Pulse Pulse Resp BP Pulse Ox 07/16/17 08:18 92 16 07/16/17 08:17 36.7 C 92 16 146/89 H 98 Intake & Output: Intake & Output 07/13/17 07/14/17 07/15/17 07/16/17 23:59 23:59 23:59 23:59 Intake Total 600 1680 840 Balance 600 1680 840 - Objective General Appearance: positive: Alert, Moderate distress Eyes Bilateral: positive: Normal inspection, PERRL Eyes: OU Conjunctivae pale ENT: positive: ENT inspection nml, Pharynx nml, Pharyngeal erythema, Dry mucous membranes Neck: positive: Nml inspection, Thyroid nml, Lymphadenopathy (R), Lymphadenopathy (L), Stiff neck Respiratory: positive: Chest non-tender, No respiratory distress, Breath sounds nml Cardiovascular: positive: Regular rate & rhythm, No gallop, Decreased pulse(s) Peripheral Pulses: 1+ Dorsalis pedis (L), 2+ Radial (R), 2+ Radial (L), 2+ Dorsalis pedis (R) Abdomen: positive: Non-tender, No organomegaly, Nml bowel sounds, No distention Back: positive: Nml inspection Skin: positive: No rash, Warm, Dry, Pallor Extremities: positive: Non-tender, Pedal edema (LLE increased edema increased), Joint swelling Neurologic/Psychiatric: positive: Oriented x3, CN's nml (2-12), Motor nml, Sensation nml, Mood/affect nml Reflexes: Bicep (R): 3+, Bicep (L): 3+ - Lab Results Fish Bones: 07/17/17 05:16 07/17/17 05:16 Other Labs: Lab Results x24hrs 07/16/17 07/16/17 Range/Units 05:45 05:45 WBC 2.3 L (4.8-10.8) x10^3/uL RBC 3.39 L (4.20-5.40) 10^6/uL Hgb 9.6 L (12.0-16.0) g/dL Hct 29.0 L (37.0-47.0) % MCV 85.4 (81.0-99.0) fL MCH 28.4 (27.0-31.0) pg MCHC 33.3 (32.0-36.0) g/dL RDW 15.8 H (12.0-15.0) % Plt Count 161 (130-450) 10^3/uL MPV 6.7 L (7.9-10.8) fL Neut # 1.0 L (1.5-6.6) 10^3/uL Lymph # 0.8 L (1.5-3.5) 10^3/uL [place] # 0.5 (0.0-1.0) 10^3/uL Eos # 0.0 (0.0-0.7) 10^3/uL Baso # 0.0 (0.0-0.1) 10^3/uL Absolute Nucleated RBC 0.00 x10^3/uL Nucleated RBC % 0.2 /100WBC Sodium 140 (135-145) mmol/L Potassium 3.8 (3.5-5.0) mmol/L Chloride 109 (101-111) mmol/L Carbon Dioxide 24 (21-32) mmol/L Anion Gap 7.0 (6-13) BUN 15 (6-20) mg/dL Creatinine 1.1 H (0.4-1.0) mg/dL Estimated GFR (MDRD) 49 L (>89) Glucose 94 (70-100) mg/dL Calcium 8.7 (8.5-10.3) mg/dL Total Bilirubin 1.1 H (0.2-1.0) mg/dL AST 15 (10-42) IU/L ALT 15 (10-60) IU/L Alkaline Phosphatase 45 (42-121) IU/L Total Protein 5.6 L (6.7-8.2) g/dL Albumin 3.0 L (3.2-5.5) g/dL Globulin 2.6 (2.1-4.2) g/dL Albumin/Globulin Ratio 1.2 (1.0-2.2) - Diagnostic Imaging Diagnostic Imaging Results: positive: Prelim report reviewed, Final report reviewed ABX Reporting Has patient been on IV antibiotics over the past 48 hours?: Yes Assessment/Plan - Problem List (1) Left leg cellulitis Impression: Nina is not greatly improved since 24 hours earlier, but states that it is not that painful. She denies recent fevers. She requests imaging due to mild calf pain, and is worried about "bone fragments" that could be causing this. Plan: Change 1 agent of Zosyn to 2 agents Vanco and Cefepime IV. Monitor using wound edge markings. (2) Cancer of right lung Impression: The patient is post right lobectomy in which they removed the right upper and right lower lobes. She remains without complications and just a scar on her torso-back. She notes that this was Stage IIIA. She states that she continues to get chemo therapy and her next treatment is planned for next Monday. Plan: Continue to monitor. Qualifiers: Lung location: upper lobe of lung Qualified Code(s): C34.11 - Malignant neoplasm of upper lobe, right bronchus or lung (3) Neutropenic Impression: The patient had an improved WBC count that was up to 2.3 today. She has been afebrile. Plan: Continue to monitor daily labs. Qualifiers: Neutropenia type: secondary to cancer chemotherapy Qualified Code(s): D70.1 - Agranulocytosis secondary to cancer chemotherapy; T45.1X5A - Adverse effect of antineoplastic and immunosuppressive drugs, initial encounter; T45.1X5A - Adverse effect of antineoplastic and immunosuppressive drugs, initial encounter (4) Maisonneuve fracture of left fibula Impression: The patient described that a few months ago she suffered a left fibula fx after accidentally stepping into a hole. There was no surgery indicated and she has been wearing a support boot for the course of treatment. The boot may have caused this cellulitis with the ankle being swollen. Plan: Continue to monitor. Qualifiers: Encounter type: initial encounter Fracture type: closed Fracture alignment: nondisplaced Qualified Code(s): S82.865A - Nondisplaced Maisonneuve 's fracture of left leg, initial encounter for closed fracture (5) Mild chronic obstructive pulmonary disease Impression: The patient has a known tobacco abuse history but has been successful at quitting since learning of her lung cancer. She is not generally on any long acting inhalers at home. Plan: Continue to monitor.
[2017-07-16] MEDS ORDERED: TIGECYCLINE IV ONE (16:34)
[2017-07-16] MEDS ORDERED: SODIUM CHLORIDE 0.9% IV ONE (16:34)
[2017-07-16] MEDS ORDERED: SODIUM CHLORIDE 0.9% IV SCH (17:00)
[2017-07-16] MEDS ORDERED: TIGECYCLINE IV SCH (17:00)
[2017-07-16] MEDS ORDERED: VANCOMYCIN PER PHARMACY 100 GM in SODIUM CHLORIDE 0.9% 250 ML IV SCH (17:00)
[2017-07-16] MEDS ORDERED: SODIUM CHLORIDE FLUSH 0.9% 10 ML SYRINGE ONE (17:57)
[2017-07-16] MEDS: CEFEPIME 2 GM in SODIUM CHLORIDE 0.9% MINIBAG 100 ML IV SCH (18:07)
[2017-07-16] MEDS: VANCOMYCIN INJ 1.5 GM in SODIUM CHLORIDE 0.9% 500 ML IV SCH (18:53)
--- NOTE | 2017-07-16 21:40 | Ultrasound Preliminary Report ---
Exam: US DUPLEX EXT VEINS LEFT IMPRESSION: 1. 4.8 x 1 x 2.5 cm complex debris-containing left popliteal fossa cyst. 2. No evidence for deep venous thrombosis. [facility] SITE ID: [id number]
--- NOTE | 2017-07-16 22:52 | XRAY Preliminary Report ---
Exam: XR TIB/FIB LT IMPRESSION: 1. Nonspecific proximal left leg edema. Findings can represent cellulitis in the appropriate clinical circumstances. No unexpected radiopaque foreign bodies or subcutaneous emphysema. 2. Subacute proximal left fibular diaphyseal fracture deformity unchanged. Early healing noted. [facility] SITE ID: [id number]
[2017-07-17] MEDS: SODIUM CHLORIDE FLUSH 0.9% 10 ML SYRINGE IVP SCH ×3 (00:37→15:55)
[2017-07-17] MEDS: CEFEPIME 2 GM in SODIUM CHLORIDE 0.9% MINIBAG 100 ML IV SCH ×3 (00:37→15:52)
--- NOTE | 2017-07-17 02:40 | XRAY Report ---
EXAM: LEFT TIBIA/FIBULA RADIOGRAPHY EXAM DATE: 07/16/2017 10:03 PM. CLINICAL HISTORY: Previous fracture, cellulitis. COMPARISON: 06/27/2017. TECHNIQUE: 2 views. FINDINGS: Bones: Stable transverse proximal left fibular diaphyseal fracture with 2 mm of residual lateral and 7 mm of anterior displacement of the more distal fragment. The fracture is less visible than on the p rior study but only mild callus formation is noted. Joints: Alignment of the knee and ankle joints is unchanged. Soft Tissues: Mild soft tissue edema in the proximal left calf. No subcutaneous emphysema. IMPRESSION: 1. Nonspecific proximal left leg edema. Findings can represent cellulitis in the appropriate clinical circumstances. No unexpected radiopaque foreign bodies or subcutaneous emphysema. 2. Subacute proximal left fibular diaphyseal fracture deformity unchanged. Early healing noted. [facility] Referring Provider Line: [phone] SITE ID: [id number]
--- NOTE | 2017-07-17 02:40 | Ultrasound Report ---
EXAM: LEFT LOWER EXTREMITY VENOUS ULTRASOUND EXAM DATE: 07/16/2017 09:25 PM. CLINICAL HISTORY: Calf pain. COMPARISON: None. TECHNIQUE: Real-time sonographic vascular imaging was performed by the hand reamer through the lower extremity utilizing both color-flow and Doppler spectral analysis. Multiple provider relations representative static salma ges were saved for review. FINDINGS: Common Femoral Vein (CFV): Normal. CFV-GSV Junction: Normal. Profunda Femoral Vein (PFV): Normal. Femoral Vein (FV) Prox: Normal. Femoral Vein (FV) Mid: Normal. Femoral Vein (FV) Dist: Normal. Popliteal Vein: Normal. Posterior Tibial Veins: Normal. Peroneal Veins: Normal. Contralateral Side CFV: Normal. Other: Complex debris-containing collection posterior to the left kidney measuring 4.8 x 1 x 2.5 cm. No vascular components. Definite continuity with the joint space not established. IMPRESSION: 1. 4.8 x 1 x 2.5 cm complex debris-containing left popliteal fossa cyst. 2. No evidence for deep venous thrombosis. [facility] Referring Provider Line: [phone] SITE ID: [id number]
[2017-07-17] MEDS: VANCOMYCIN INJ 1.5 GM in SODIUM CHLORIDE 0.9% 500 ML IV SCH (05:28)
[2017-07-17 05:52] LABS: HGB - HEMOGLOBIN 9.6 g/dL (12.0-16.0); MEAN CORPUSCULAR HEMOGLOBIN 28.4 pg (27.0-31.0); MEAN CORPUSCULAR HGB CONC 33.3 g/dL (32.0-36.0); MEAN CORPUSCULAR VOLUME 85.3 fL (81.0-99.0); MEAN PLATELET VOLUME 7.1 fL (7.9-10.8); NEUTROPHILS # (AUTO) 1.5 10^3/uL (1.5-6.6); NEUTROPHILS % (AUTO) 50.7 %; RED BLOOD COUNT 3.4 10^6/uL (4.20-5.40)
[2017-07-17 06:03] LABS: ALBUMIN 3.1 g/dL (3.2-5.5); ALBUMIN/GLOBULIN RATIO 1.2 (1.0-2.2); BILIRUBIN,TOTAL 0.9 mg/dL (0.2-1.0); CALCIUM 8.8 mg/dL (8.5-10.3); CREATININE 0.8 mg/dL (0.4-1.0); TOTAL PROTEIN 5.6 g/dL (6.7-8.2)
[2017-07-17] MEDS: ENOXAPARIN 40 MG/0.4 ML SYRINGE SUBQ SCH (09:10)
[2017-07-17] MEDS: LACTOBACILLUS RHAMNOSUS GG CAPSULE PO SCH (09:10)
[2017-07-17] MEDS: POLYETHYLENE GLYCOL 3350 17 GM PACKET PO SCH (09:12)
[2017-07-17] MEDS: OXYMETAZOLINE NASAL SPRAY NAS SCH (09:12)
--- NOTE | 2017-07-17 10:47 | Discharge Plan ---
Discharge Plan Disposition: 01 Home, Self Care Condition: Good Prescriptions: Clindamycin HCl [Clindamycin 150MG CAP] 450 mg PO TID 10 Days #90 capsule Lactobacillus Rhamnosus GG [Culturelle] 1 cap PO BID 20 Days #40 capsule Diet: Regular Activity Restrictions: Activity as Tolerated Shower Restrictions: No Driving Restrictions: No Weight Bearing: Full Weight Additional Instructions or Follow Up instructions: You were admitted for left ankle/foot cellulitis that mildly improved on the first day, then your antibiotics were changed and you were much improved. You should continue on a course of antibiotics for another 10 days. You will need to check with your oncology team regarding antibiotic course and whether this may delay your treatments. Continue to take good care of your self and wear thick socks under the brace to prevent skin breakdown, elevate your leg and rest when you feel tired. Report all fevers or signs of infection. You should see your PCP within one week. No Smoking: If you smoke, Please STOP! Call for help. Follow-up with: ROBYN TOBIN MD [Primary Care Provider] -
--- NOTE | 2017-07-17 11:03 | DISCHARGE SUMMARY ---
Discharge Summary Admit Date: 07/14/17 Discharge Date: 07/17/17 Discharging Provider: MAURA Swain Primary Care Provider: Letitia Garcia Code Status: Attempt Resuscitation Condition at Discharge: Good Discharge Disposition: 01 Home, Self Care - DIAGNOSES Admission Diagnoses: SIRS (systemic inflammatory response syndrome) (R65.10) Failure of outpatient treatment (Z78.9) Cellulitis (L03.90) Neutropenia (D70.9) Immunocompromised state (D84.9) Lung cancer (C34.90) Discharge Diagnoses with Status of Each Condition: SIRS (systemic inflammatory response syndrome) (R65.10) ruled out. Failure of outpatient treatment (Z78.9) resolved. Cellulitis (L03.90) new on this admit, PO antibiotics to continue. Neutropenia (D70.9) chronic, stable. Immunocompromised state (D84.9)- chronic, stable. Lung cancer (C34.90) -chronic, post lobectomy Right. Fracture of fibula (S82.409A) Left lower leg, stable. - HPI History of Present Illness: Chandrika Arroyo is a 72-year old female with a past medical history of tobacco dependence, status post right lobectomy in March 2017, lung cancer-currently on chemotherapy, GERD and status post left fibula fracture without surgical repair. She presented to the ED back on 06/27, with a proximal fibula fracture after a mechanical fall as she accidentally stepped in a hole outside while walking in tall grass. Orthopedic surgery did not suggest a surgical repair and the patient was given a support boot to wear on her left lower leg with partial weight bearing restrictions. Subsequently, she has been noticing redness, swelling, and increased pain near the inner aspect of her left ankle. For that problem she was seen in the ED on 07/08 and prescribed oral antibiotics; Keflex for cellulitis. She underwent an ultrasound of the LLE, which was negative for DVT. During this past week, she has been taking the Keflex as prescribed. However, the redness, swelling, and increased pain became worse, so she presented to the ED today. Once in the ED, she was found to be febrile with a temp max of 37.1, slightly tachycardic with a heart rate of over 100, she was neutropenic due to her recent chemo treatments and had a WBC of 2.4, which was decreased from 16, absolute neutrophil count of 1.2, creatinine was normal at 1.0, BUN was 26, and otherwise unremarkable presentation. She will be admitted to in patient given her neutropenic status, febrile and overall worsening condition of her LLE cellulitis. - HOSPITAL COURSE Hospital Course: The following diagnoses were prevalent during this hospital stay: (1) Left leg cellulitis SIRS was quickly ruled out as this illness did not influence any other organs, and did not change her mental status. She showed improvement each day of her hospital stay. Nina was greatly improved at the 24 hour michelle of admission, but admits to much less pain. She denies recent fevers. Imaging was completed due to mild calf pain, and she was worried about "bone fragments" that could be causing this. Both a LLE doppler venous study and a LLE x-ray were negative for further complications, blood clots or changes to her previous fractured fibula. She was started on Zosyn that was changed after 24 hours; to 2 agents Vanco and Cefepime IV. She was prescribed PO clindamycin to be taken for an extended period, and a probiotic as a preventative. (2) Cancer of right lung The patient is post right lobectomy in which they removed the right upper and right lower lobes. She remains without complications and just a scar on her torso-back. She notes that this was Stage IIIA. She states that she continues to get chemo therapy and her next treatment is planned for next Monday. This will likely be on hold due to this course of antibiotics. (3) Neutropenic The patient had an improved WBC count that was up to 3.0 on the day of discharge. She maintained an afebrile state. (4) Maisonneuve fracture of left fibula The patient described that a few months ago she suffered a left fibula fx after accidentally stepping into a hole. There was no surgery indicated and she has been wearing a support boot for the course of treatment. The boot may have caused this cellulitis with the ankle being swollen. Imaging of LLE during this hospital stay was obtained and was negative for any changes or complications. (5) Mild chronic obstructive pulmonary disease The patient has a known tobacco abuse history but has been successful at quitting since learning of her lung cancer. She is not generally on any long acting inhalers at home. Disposition: The patient was anxious to return home and was in stable condition at the time of discharge. - ALLERGIES Allergies/Adverse Reactions: Allergies Allergy/AdvReac Type Severity Reaction Status Date / Time ibuprofen Allergy Unknown Verified 07/14/17 16:34 - MEDICATIONS Home Medications: Ambulatory Orders Medication Instructions Recorded Confirmed Clindamycin HCl [Clindamycin 150MG 450 mg PO TID 10 Days #90 capsule 07/17/17 CAP] Saccharomyces Boulardii [Florastor] 250 mg PO BID 20 Days #40 capsule 07/17/17 raNITIdine [Zantac] 150 mg PO BID tablet 07/17/17 - PHYSICAL EXAM AT DISCHARGE General Appearance: positive: No acute distress, Alert Eyes Bilateral: positive: Normal inspection, PERRL ENT: positive: ENT inspection nml, Pharynx nml, No signs of dehydration Neck: positive: Nml inspection, Thyroid nml, No JVD, Trachea midline Respiratory: positive: Chest non-tender, No respiratory distress, Breath sounds nml Cardiovascular: positive: Regular rate & rhythm, No murmur, No gallop Peripheral Pulses: positive: 2+ Abdomen: positive: Non-tender, No organomegaly, Nml bowel sounds, No distention Back: positive: Nml inspection Skin: positive: Color nml, No rash, Warm, Dry Extremities: positive: Non-tender, Full ROM, Pedal edema (BLE edema, left ankle swelling is less, only mild erythema), Joint swelling Neurologic/Psychiatric: positive: Oriented x3, CN's nml (2-12), Motor nml, Sensation nml, Mood/affect nml Reflexes: Bicep (R): 4+, Bicep (L): 4+ - LABS Result Diagrams: 07/17/17 05:16 07/17/17 05:16 - DIAGNOSTIC IMAGING Diagnostic Imaging Results: Final report reviewed - FOLLOW UP Follow Up: Disposition: 01 Home, Self Care Condition: Good Prescriptions: Clindamycin HCl [Clindamycin 150MG CAP] 450 mg PO TID 10 Days #90 capsule Lactobacillus Rhamnosus GG [Culturelle] 1 cap PO BID 20 Days #40 capsule Diet: Regular Activity Restrictions: Activity as Tolerated Shower Restrictions: No Driving Restrictions: No Weight Bearing: Full Weight Additional Instructions or Follow Up instructions: You were admitted for left ankle/foot cellulitis that mildly improved on the first day, then your antibiotics were changed and you were much improved. You should continue on a course of antibiotics for another 10 days. You will need to check with your oncology team regarding antibiotic course and whether this may delay your treatments. Continue to take good care of your self and wear thick socks under the brace to prevent skin breakdown, elevate your leg and rest when you feel tired. Report all fevers or signs of infection. You should see your PCP within one week. - TIME SPENT Time Spent in Discharge (Minutes): 60
[2017-07-17] MEDS ORDERED: VANCOMYCIN INJ 1.5 GM in SODIUM CHLORIDE 0.9% 500 ML IV ONE (16:00)
[2017-07-17 18:24] VITALS: BP 143/86
== END 2017-07-17 18:10 | disposition home or self-care (01) | DRG 603 ==
LOC: ED 16:14 → MS2 21:27
PROVIDERS: ADMIT Internal Medicine; ATTEND Nurse Practitioner
DX: L03.115 Cellulitis of right lower limb (principal); D70.1 Agranulocytosis secondary to cancer chemotherapy; C34.90 Malignant neoplasm of unspecified part of unspecified bronchus or lung; L03.116 Cellulitis of left lower limb; D84.9 Immunodeficiency, unspecified; C34.91 Malignant neoplasm of unspecified part of right bronchus or lung; D70.9 Neutropenia, unspecified; K21.9 Gastro-esophageal reflux disease without esophagitis; S82.409D Unspecified fracture of shaft of unspecified fibula, subsequent encounter for closed fracture with routine healing; J44.9 Chronic obstructive pulmonary disease, unspecified
CPT/HCPCS: 36415; 71046; 80053; 83605; 83690; 85025; 85027; 87040; 87640; 96365; 96368; 99284

== ENCOUNTER 2018-02-02 14:06 | Outpatient (CLI) | payer MEDICARE, OTHER ==
--- NOTE | 2018-02-03 18:41 | XRAY Report ---
Reason: RT HAND PAIN Procedure Date: 02/02/2018 Accession Number: [id number] / [id number] Procedure: XR - Hand 3 View RT CPT Code: FULL RESULT: EXAM: RIGHT HAND RADIOGRAPHY EXAM DATE: 02/02/2018 02:29 PM. CLINICAL HISTORY: RT HAND PAIN. COMPARISON: None. TECHNIQUE: 3 views. FINDINGS: Bones: No acute fractures or suspicious bone lesions. Joints: No subluxations. Severe osteoarthritis of the first carpometacarpal joint. Soft Tissues: Unremarkable. IMPRESSION: No acute radiographic abnormalities. Severe osteoarthritis of the first CMG joint. [facility]
== END 2018-02-02 14:07 | disposition home or self-care (01) ==
LOC: DI 14:06
PROVIDERS: ATTEND Nurse Practitioner Family
DX: M19.041 Primary osteoarthritis, right hand (principal)

== ENCOUNTER 2018-03-06 09:04 | Emergency (ER) | payer MEDICARE, OTHER ==
[2018-03-06 09:11] VITALS: BP 142/93
--- NOTE | 2018-03-06 09:21 | ED Physician Documentation ---
PD HPI SKIN - Stated complaint Stated Complaint: LUMP ON NECK - Chief complaint Chief Complaint: Wound - History obtained from History obtained from: Patient - History of Present Illness Timing - onset: How many days ago (4) Timing - duration: Days (4) Timing - details: Gradual onset, Still present Location: Neck Quality / character: Itchy, Painful Improved by: Benadryl Associated symptoms: Myalgias. No: Fever, Joint pain, Headache, Facial swelling, Dyspnea, Abd pain, N/V/D, Urinary sx Similar symptoms before: Has not had sx before Recently seen: Not recently seen - Additional information Additional information: 73-year-old female who is undergone treatment for lung cancer has had an area on the back of her neck on the right side that is been painful she has had some shooting pains from there periodically and she cannot see what this area looks like. She states the pain is been there about 4 days she has put some Benadryl cream on it. Review of Systems Constitutional: denies: Fever Eyes: denies: Decreased vision Ears: denies: Ear pain Nose: denies: Rhinorrhea / runny nose, Congestion Throat: denies: Sore throat Cardiac: denies: Chest pain / pressure, Palpitations Respiratory: denies: Dyspnea, Cough GI: denies: Abdominal Pain, Nausea, Vomiting : denies: Dysuria, Frequency Skin: reports: Rash Musculoskeletal: reports: Neck pain. denies: Back pain, Extremity pain Neurologic: denies: Generalized weakness, Focal weakness, Numbness PD PAST MEDICAL HISTORY - Past Medical History Cardiovascular: None Respiratory: COPD, Other Neuro: Motion sickness Endocrine/Autoimmune: None GI: GERD : None HEENT: None Psych: None Musculoskeletal: Osteoarthritis Derm: None - Past Surgical History Past Surgical History: Yes HEENT: Tonsil/Adenoidectomy - Present Medications Home Medications: Ambulatory Orders Medication Instructions Recorded Confirmed Clindamycin HCl [Clindamycin 150MG 450 mg PO TID 10 Days #90 capsule 07/17/17 CAP] Saccharomyces Boulardii [Florastor] 250 mg PO BID 20 Days #40 capsule 07/17/17 raNITIdine [Zantac] 150 mg PO BID tablet 07/17/17 Valacyclovir HCl [Valacyclovir] 1,000 mg PO TID #21 tablet 03/06/18 - Allergies Allergies/Adverse Reactions: Allergies Allergy/AdvReac Type Severity Reaction Status Date / Time ibuprofen Allergy Unknown Verified 07/14/17 16:34 - Social History Does the pt smoke?: No Smoking Status: Former smoker Does the pt drink ETOH?: No Does the pt have substance abuse?: No - Immunizations Immunizations are current?: Yes - POLST Patient has POLST: No PD ED PE NORMAL - Vitals Vital signs reviewed: Yes (hypertensive ) - General General: Alert and oriented X 3, No acute distress, Well developed/nourished - HEENT HEENT: Atraumatic, PERRL, EOMI - Neck Neck: Supple, no meningeal sign, No bony TTP, Other (over the right lower scalp at the junction to the neck over the occiput is a grouping of crusted vesicles consistent with zoster) - Respiratory Respiratory: No respiratory distress - Derm Derm: Normal color, Warm and dry - Extremities Extremities: No deformity, No edema - Neuro Neuro: No motor deficit, No sensory deficit Eye Opening: Spontaneous Motor: Obeys Commands Verbal: Oriented GCS Score: 15 - Psych Psych: Normal mood, Normal affect Results - Vitals Vitals: Vital Signs - 24 hr 03/06/18 09:08 Temperature 36.1 C L Heart Rate 90 Respiratory 18 Rate Blood Pressure 142/93 H O2 Saturation 95 Oxygen O2 Source Room air PD MEDICAL DECISION MAKING - ED course Complexity details: considered differential, d/w patient ED course: 73-year-old female with acute onset of shingles is about 4 days into the course we will provide valacyclovir and instructions on shingles. Departure - Departure Disposition: 01 Home, Self Care Clinical Impression: Shingles Qualifiers: Herpes zoster complications: without complications Qualified Code(s): B02.9 - Zoster without complications Condition: Stable Instructions: ED Shingles Follow-Up: ROBYN TOBIN MD [Primary Care Provider] - Prescriptions: Valacyclovir HCl [Valacyclovir] 1,000 mg PO TID #21 tablet
== END 2018-03-06 09:42 | disposition home or self-care (01) ==
LOC: ED 09:04
DX: B02.9 Zoster without complications (principal); C34.90 Malignant neoplasm of unspecified part of unspecified bronchus or lung; Z87.891 Personal history of nicotine dependence
CPT/HCPCS: 99283

== ENCOUNTER 2018-03-19 09:08 | Emergency (ER) | payer MEDICARE, OTHER ==
--- NOTE | 2018-03-19 09:44 | ED Physician Documentation ---
History of Present Illness - Stated complaint Stated Complaint: CHEST PX - Chief complaint Chief Complaint: General - Additonal information Additional information: hx from pt 73 female hx lung cancer sp RUL RML lobectomy no active cancer no recent travel no new leg pain or swelling to ED with sharp pleuritc right upper chest and shoulder pain since Monday night no fever no cough recent shingles but no rash to this area no abd pain Review of Systems Constitutional: denies: Fever, Chills Cardiac: reports: Chest pain / pressure Respiratory: reports: Dyspnea. denies: Cough GI: denies: Abdominal Pain, Nausea, Vomiting Skin: denies: Rash Musculoskeletal: denies: Neck pain, Back pain, Extremity pain, Extremity swelling Endocrine: denies: Easy bruising / bleeding Immunocompromised: denies: Immunocompromised PD PAST MEDICAL HISTORY - Past Medical History Past Medical History: Yes Cardiovascular: None Respiratory: COPD, Other Neuro: Motion sickness Endocrine/Autoimmune: None GI: GERD : None HEENT: None Psych: None Musculoskeletal: Osteoarthritis Derm: None Other Past Medical History: Lung CA - Past Surgical History Past Surgical History: Yes HEENT: Tonsil/Adenoidectomy - Present Medications Home Medications: Ambulatory Orders Medication Instructions Recorded Confirmed Cholecalciferol (Vitamin D3) 0 unit PO 03/19/18 [Vitamin D3] Hydrocodone/Acetaminophen 1 each PO Q6H PRN #10 tablet 03/19/18 [Hydrocodon-Acetaminophen 5-325] Magnesium 0 mg PO 03/19/18 raNITIdine [Zantac] 150 mg PO DAILY 03/19/18 03/19/18 - Allergies Allergies/Adverse Reactions: Allergies Allergy/AdvReac Type Severity Reaction Status Date / Time ibuprofen Allergy Unknown Verified 03/19/18 09:40 - Social History Does the pt smoke?: No Smoking Status: Never smoker Does the pt drink ETOH?: No Does the pt have substance abuse?: No - Immunizations Immunizations are current?: Yes - POLST Patient has POLST: No PD ED PE NORMAL - Vitals Vital signs reviewed: Yes - HEENT HEENT: Atraumatic - Neck Neck: Supple, no meningeal sign - Cardiac Cardiac: RRR - Respiratory Respiratory: No respiratory distress, Clear bilaterally - Abdomen Abdomen: Soft, Non tender, Other (no ruq ttp) - Derm Derm: Normal color, No rash - Extremities Extremities: No edema, No calf tenderness / cord - Neuro Neuro: Alert and oriented X 3 Results - Vitals Vitals: Vital Signs - 24 hr 03/19/18 03/19/18 03/19/18 09:17 10:56 11:20 Temperature 36.1 C L Heart Rate 91 100 Respiratory 18 16 Rate Blood Pressure 176/98 H 145/87 H O2 Saturation 99 98 03/19/18 03/19/18 03/19/18 11:22 12:31 14:34 Temperature Heart Rate 94 101 H 88 Respiratory 13 26 H 18 Rate Blood Pressure 146/84 H 124/76 132/79 H O2 Saturation 98 98 99 03/19/18 15:34 Temperature Heart Rate 88 Respiratory 18 Rate Blood Pressure 143/98 H O2 Saturation 98 Oxygen O2 Source Room air - EKG (time done) 0923 Rate: Rate (enter#) (81) Rhythm: NSR [place]: Normal Intervals: Normal IA Ischemia: Q waves (small non diagnositic inferior) - Labs Labs: Laboratory Tests 03/19/18 03/19/18 03/19/18 09:25 09:25 09:25 WBC 8.8 RBC 4.09 L Hgb 13.0 Hct 37.5 MCV 91.9 MCH 31.8 H MCHC 34.6 RDW 15.0 Plt Count 217 MPV 7.5 L Neut # (Auto) 6.9 H Lymph # (Auto) 0.9 L [place] # (Auto) 0.8 Eos # (Auto) 0.1 Baso # (Auto) 0.0 Absolute Nucleated RBC 0.00 Nucleated RBC % 0.0 Sodium 134 L Potassium 4.0 Chloride 104 Carbon Dioxide 22 Anion Gap 8.0 BUN 26 H Creatinine 1.1 H Estimated GFR (MDRD) 49 L Glucose 98 Calcium 9.0 Total Bilirubin 0.8 AST 22 ALT 22 Alkaline Phosphatase 69 Troponin I < 0.04 Total Protein 7.2 Albumin 3.9 Globulin 3.3 Albumin/Globulin Ratio 1.2 Lipase 24 - Rads (name of study) CXR Radiology: See rad report (suboptimal insp effort, atelectasis, no pna CHF etc) CTPA Radiology: See rad report (no PE no acute process, prior lobectomy, emphysema, mild CAD) PD MEDICAL DECISION MAKING - ED course ED course: sharp right sided CP X 4 days constant neg EKG and trop rules out ACS CT neg for PE and dissection no recurrent cancer etc likely pleurisy possibly related to recent shingles Departure - Departure Disposition: 01 Home, Self Care Clinical Impression: Pleurisy Condition: Good Instructions: ED Chest Pain Pleurisy Follow-Up: ROBYN TOBIN MD [Primary Care Provider] - Prescriptions: Hydrocodone/Acetaminophen [Hydrocodon-Acetaminophen 5-325] 1 each PO Q6H PRN #10 tablet PRN Reason: Severe Pain Comments: The labs looked fine. The chest xray and then the CT scan did not show any problems - no tumors no blood clots, no infection, no fluid, no collapsed lung The heart checked out fine to. I am not certain what is causing the pain. I suspect it may be pleurisy (inflammation of the lining of your lungs) or maybe related to your recent shingles. In any case, given the reassuring work up, I think it is safe for you to go home with medication for the pain. Please follow up with your PMD for a recheck. Return if worse Discharge Date/Time: 03/19/18 15:38
[2018-03-19 09:47] LABS: BASOPHILS % (AUTO) 0.5 %; EOSINOPHILS # (AUTO) 0.1 10^3/uL (0.0-0.7); EOSINOPHILS % (AUTO) 0.7 %; LYMPHOCYTES # (AUTO) 0.9 10^3/uL (1.5-3.5); LYMPHOCYTES % (AUTO) 10.3 %; MEAN CORPUSCULAR HEMOGLOBIN 31.8 pg (27.0-31.0); MEAN CORPUSCULAR HGB CONC 34.6 g/dL (32.0-36.0); MEAN CORPUSCULAR VOLUME 91.9 fL (81.0-99.0); MEAN PLATELET VOLUME 7.5 fL (7.9-10.8); MONOCYTES # (AUTO) 0.8 10^3/uL (0.0-1.0); MONOCYTES % (AUTO) 9.3 %; NEUTROPHILS # (AUTO) 6.9 10^3/uL (1.5-6.6); NEUTROPHILS % (AUTO) 79.2 %; PLT - PLATELET COUNT 217 10^3/uL (130-450); RED BLOOD COUNT 4.09 10^6/uL (4.20-5.40); WHITE BLOOD COUNT 8.8 x10^3/uL (4.8-10.8)
[2018-03-19 09:59] LABS: ALBUMIN 3.9 g/dL (3.2-5.5); ALBUMIN/GLOBULIN RATIO 1.2 (1.0-2.2); BILIRUBIN,TOTAL 0.8 mg/dL (0.2-1.0); CREATININE 1.1 mg/dL (0.4-1.0); TOTAL PROTEIN 7.2 g/dL (6.7-8.2)
--- NOTE | 2018-03-19 10:35 | XRAY Report ---
Reason: chest pain Procedure Date: 03/19/2018 Accession Number: [id number] / [id number] Procedure: XR - Chest 1 View X-Ray CPT Code: 65422 FULL RESULT: EXAM: CHEST RADIOGRAPHY, PORTABLE 1 VIEW EXAM DATE: 03/19/2018 10:04 AM. CLINICAL HISTORY: Chest pain in a 73-year-old female. COMPARISON: Chest 2 view 07/15/2017 8:21 AM. Chest angio 03/01/2017 2:57 PM. TECHNIQUE: 944 hour AP portable view. FINDINGS: Lungs/Pleura: Suboptimal inspiratory effort with mild atelectatic changes left lung base. No infiltrates, effusions or pneumothorax. Mediastinum: Heart size normal with mild aortic tortuosity, as previously. No adenopathy or pulmonary vascular congestion. Other: Trachea is deviated slightly to the right secondary to aortic tortuosity, as previously. Osseous structures unremarkable for age. IMPRESSION: Suboptimal inspiratory effort with probable minimal atelectasis left lung base. No overt pneumonia, CHF or other demonstrated cause for chest pain. [facility]
[2018-03-19] MEDS ORDERED: IOVERSOL 320 100 ML VIAL IVP ONE ×2 (11:00→11:26)
[2018-03-19] MEDS ORDERED: ACETAMINOPHEN 325 MG TABLET PO STA (11:15)
--- NOTE | 2018-03-19 12:24 | CT Report ---
Reason: pleuritic r chest pain hx cancer Procedure Date: 03/19/2018 Accession Number: [id number] / [id number] Procedure: CT - Chest Angio (PE) CPT Code: FULL RESULT: EXAM: CT ANGIOGRAM CHEST EXAM DATE: 03/19/2018 11:31 AM. CLINICAL HISTORY: Cough, dyspnea and recent lung biopsy. COMPARISON: CHEST ANGIO 03/01/2017 2:57 PM. TECHNIQUE: Routine helical imaging was performed through the chest in the pulmonary arterial phase. IV Contrast: [id number]. Reconstructions: Coronal 3-D MIP reconstructions.Sagittal and coronal. In accordance with CT protocol optimization, one or more of the following dose reduction techniques were utilized for this exam: automated exposure control, adjustment of mA and/or KV based on patient size, or use of iterative reconstructive technique. FINDINGS: Pulmonary Arteries: Diagnostic quality: Adequate through the segmental arteries. No evidence for acute or chronic pulmonary emboli. RV/LV is within normal limits. There is no interventricular septal bowing. There is no reflux of contrast material in the IVC. Lungs/Pleura: Centrilobular and paraseptal emphysema is noted. Previous lobectomy changes are noted in the right lung with resection of the previously noted right lung mass. No new or recurrent masses noted. No consolidation or pneumothorax. Mild bronchial wall thickening. No endobronchial lesion. Trace right pleural effusion. Mediastinum: Rightward shift of the mediastinal structures following right lung postsurgical changes. No significant cardiac enlargement. No pericardial effusion or adenopathy. Patchy mild coronary artery calcifications are noted. Thoracic Aorta: Unremarkable. Upper Abdomen: Unremarkable. Other: Homogeneous enhancement of the thyroid gland. No thyroid nodule or mass. No supraclavicular or axillary lymphadenopathy identified. Right-sided rib deformities from previous lobectomy. No osteoblastic or lytic lesions. IMPRESSION: 1. Normal pulmonary CT angiogram. No pulmonary emboli. 2. Mild coronary artery disease. No adenopathy or cardiac enlargement. 3. Centrilobular and paraseptal emphysema. Previous right lobectomy with right upper chest and the mediastinal structures. Trace right pleural effusion. No acute pulmonary process. No pneumothorax. [facility]
[2018-03-19 15:35] VITALS: BP 143/98
== END 2018-03-19 15:38 | disposition home or self-care (01) ==
LOC: ED 09:08
DX: R09.1 Pleurisy (principal); Z85.118 Personal history of other malignant neoplasm of bronchus and lung
CPT/HCPCS: 36415; 71045; 71275; 80053; 83690; 84484; 85025; 93005; 99283; 99284; A9270; Q9967

== ENCOUNTER 2021-04-15 09:59 | Emergency (ER) | payer MEDICARE, OTHER ==
[2021-04-15 10:06] VITALS: BP 143/86
--- NOTE | 2021-04-15 10:28 | XRAY Report ---
PROCEDURE: Hand 3 View RT INDICATIONS: Trauma TECHNIQUE: 3 views of the hand(s) acquired. COMPARISON: None FINDINGS: Bones: No fractures or dislocations. No suspicious bony lesions. IP degenerative changes. Soft tissues: No suspicious soft tissue calcifications. IMPRESSION: No visualized acute fracture or dislocation. However, occult injury cannot be excluded. Recommend hawk rt interval imaging follow-up in 7-10 days as clinically indicated for additional evaluation. Reviewed by: Cindy Gonzalez MD on 04/15/2021 10:27 AM [facility] Approved by: Cindy Gonzalez MD on 04/15/2021 10:27 AM [facility] Station ID: [id number]
--- NOTE | 2021-04-15 11:32 | ED Physician Documentation ---
PD HPI UPPER EXT INJURY - Stated complaint Stated Complaint: RT HAND INJ - Chief complaint Chief Complaint: Ext Problem - History obtained from History obtained from: Patient - Additonal information Additional information: The patient comes to the emergency department chief complaint of right hand pain after a fall 1 week ago. She states she has had some bruising and swelling and mainly, persistent pain over her fifth MCP joint and metacarpal bone. She states the swelling has fluctuated, but is mostly gone. No numbness or tingling. No loss of function. Patient had bruising over the rest of her hand and wrist, but states that that is all doing better. No other complaints at this time. Review of Systems Ten Systems: 10 systems reviewed and negative Constitutional: reports: Reviewed and negative Eyes: reports: Reviewed and negative Ears: reports: Reviewed and negative Nose: reports: Reviewed and negative Throat: reports: Reviewed and negative Cardiac: reports: Reviewed and negative Respiratory: reports: Reviewed and negative GI: reports: Reviewed and negative : reports: Reviewed and negative Skin: reports: Reviewed and negative Musculoskeletal: reports: Extremity pain, Extremity swelling Neurologic: reports: Reviewed and negative Psychiatric: reports: Reviewed and negative Endocrine: reports: Reviewed and negative Immunocompromised: reports: Reviewed and negative PD PAST MEDICAL HISTORY - Past Medical History Past Medical History: Yes Cardiovascular: None Respiratory: COPD, Other Neuro: Motion sickness Endocrine/Autoimmune: None GI: GERD : None HEENT: None Psych: None Musculoskeletal: Osteoarthritis Derm: None - Past Surgical History Past Surgical History: Yes HEENT: Tonsil/Adenoidectomy - Present Medications Home Medications: Ambulatory Orders Medication Instructions Recorded Confirmed Cholecalciferol (Vitamin D3) 0 unit PO 03/19/18 [Vitamin D3] Hydrocodone/Acetaminophen 1 each PO Q6H PRN #10 tablet 03/19/18 [Hydrocodon-Acetaminophen 5-325] Magnesium 0 mg PO 03/19/18 raNITIdine [Zantac] 150 mg PO DAILY 03/19/18 03/19/18 - Allergies Allergies/Adverse Reactions: Allergies Allergy/AdvReac Type Severity Reaction Status Date / Time ibuprofen Allergy Unknown Verified 04/15/21 10:07 - Social History Does the pt smoke?: No Smoking Status: Never smoker Does the pt drink ETOH?: No Does the pt have substance abuse?: No - Immunizations Immunizations are current?: Yes - POLST Patient has POLST: No PD ED PE NORMAL - Vitals Vital signs reviewed: Yes - General General: Alert and oriented X 3, No acute distress, Well developed/nourished - HEENT HEENT: Atraumatic, PERRL, EOMI, Moist mucous membranes - Neck Neck: Supple, no meningeal sign - Cardiac Cardiac: Strong equal pulses - Respiratory Respiratory: No respiratory distress - Derm Derm: Warm and dry, No rash, Other (Contusion, Right wrist and hand) - Extremities Extremities: No deformity, Other (Mild edema, right wrist ) - Neuro Neuro: Alert and oriented X 3 - Psych Psych: Normal mood, Normal affect Results - Vitals Vitals: Vital Signs - 24 hr 04/15/21 10:04 Temperature 36.5 C Heart Rate 85 Respiratory 16 Rate Blood Pressure 143/86 H O2 Saturation 99 Oxygen O2 Source Room air - Rads (name of study) Right hand x-ray series Radiology: Final report received, EMP read indepedently, See rad report (Negative) PD MEDICAL DECISION MAKING - ED course Complexity details: reviewed results, re-evaluated patient, considered differential, d/w patient ED course: I discussed with the patient that her x-rays are negative, and that most likely, as she contused the area over her right hand ulnar aspect. We have discussed symptomatic management at home and the usual indications for return. Departure - Departure Disposition: 01 Home, Self Care Clinical Impression: Hand contusion Qualifiers: Encounter type: initial encounter Laterality: right Qualified Code(s): S60.221A - Contusion of right hand, initial encounter Condition: Stable Instructions: ED Contusion Hand Comments: Your x-rays look good. There is no evidence of a break of any of the bones in the region where you are having the pain and swelling. Please follow-up with your doctor as needed. You may take ibuprofen and/or Tylenol, and use ice to help with swelling and pain.
== END 2021-04-15 12:27 | disposition home or self-care (01) ==
LOC: ED 09:59
DX: S60.221A Contusion of right hand, initial encounter (principal); W19.XXXA Unspecified fall, initial encounter
CPT/HCPCS: 99282; 99283

== ENCOUNTER 2022-08-30 09:44 | Emergency (ER) | payer MEDICARE ==
[2022-08-30 10:00] VITALS: BP 152/77
--- NOTE | 2022-08-30 12:44 | ED Physician Documentation ---
PD HPI BACK PAIN - Stated complaint Stated Complaint: BACK PX - Chief complaint Chief Complaint: Back Pain - History obtained from History obtained from: Patient - History of Present Illness Timing - onset: Last night Timing - duration: Hours Timing - details: Abrupt onset, Still present Location: Mid, Right Quality: Pain, Sharp, Similar to prior episodes (similar to the pain of shingles 4 years ago.) Associated symptoms: No: Fever, Weakness, Numbness, Incontinent of urine, Unable to urinate, Hematuria, Incontinent of stool Improves with: Nothing Worsened by: Other (nothing) Contributing factors: No: Trauma, Anticoagulated Similar symptoms before: Diagnosis (shingles) Recently seen: Other (getting care for breast cancer and sarcoma.) - Additional information Additional information: Nina Arroyo is a 77-year-old female who is 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 She is not tolerating her chemotherapy for the breast cancer with lot of fatigue. 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 They are planning to start some radiation therapy tomorrow at [facility]. She awoke early in the morning with a lancinating pain to her back similar to what she had when she had shingles in her neck 4 years ago. She does not see a specific rash. She has put a Salonpas on this and it seemed to help when she took some Tylenol. Review of Systems Constitutional: denies: Fever Eyes: denies: Decreased vision Ears: denies: Ear pain Nose: denies: Congestion Throat: denies: Sore throat Cardiac: reports: Chest pain / pressure. denies: Palpitations, Pedal edema, Calf pain Respiratory: denies: Dyspnea, Cough GI: denies: Abdominal Pain, Nausea, Vomiting, Constipation, Diarrhea : denies: Dysuria, Frequency Musculoskeletal: reports: Back pain. denies: Neck pain, Extremity pain PD PAST MEDICAL HISTORY - Past Medical History Cardiovascular: None Respiratory: COPD, Other Neuro: Motion sickness Endocrine/Autoimmune: None GI: GERD : None HEENT: None Psych: None Musculoskeletal: Osteoarthritis Derm: None - Past Surgical History Past Surgical History: Yes HEENT: Tonsil/Adenoidectomy - Present Medications Home Medications: Ambulatory Orders Medication Instructions Recorded Confirmed Cholecalciferol (Vitamin D3) 0 unit PO 03/19/18 [Vitamin D3] Hydrocodone/Acetaminophen 1 each PO Q6H PRN #10 tablet 03/19/18 [Hydrocodon-Acetaminophen 5-325] Magnesium 0 mg PO 03/19/18 raNITIdine [Zantac] 150 mg PO DAILY 03/19/18 03/19/18 valACYclovir [Valtrex] 1,000 mg PO TID #15 tablet 08/30/22 - Allergies Allergies/Adverse Reactions: Allergies Allergy/AdvReac Type Severity Reaction Status Date / Time ibuprofen Allergy Edema Verified 08/30/22 09:52 - Social History Does the pt smoke?: No Smoking Status: Never smoker Does the pt drink ETOH?: No Does the pt have substance abuse?: No - Immunizations Immunizations are current?: Yes - POLST Patient has POLST: No PD ED PE NORMAL - Vitals Vital signs reviewed: Yes (Hypertensive) - General General: Alert and oriented X 3, No acute distress, Well developed/nourished - HEENT HEENT: Atraumatic, PERRL, EOMI - Respiratory Respiratory: No respiratory distress - Abdomen Abdomen: Soft, Non tender - Back Back: No CVA TTP, No spinal TTP, Other (Over the right thoracolumbar junction there is a Salonpas present and this is removed demonstrating 3 tiny areas of erythema. No specific vesicular grouping no crusting.) - Derm Derm: Normal color, Warm and dry - Extremities Extremities: No deformity, No edema - Neuro Neuro: Alert and oriented X 3, landscape photographer 2-12 intact, No motor deficit, No sensory deficit, Normal speech Eye Opening: Spontaneous Motor: Obeys Commands Verbal: Oriented GCS Score: 15 - Psych Psych: Normal mood, Normal affect Results - Vitals Vitals: Vital Signs - 24 hr 08/30/22 09:52 Temperature 36.2 C L Heart Rate 80 Respiratory 18 Rate Blood Pressure 152/77 H O2 Saturation 100 Oxygen O2 Source Room air PD Medical Decision Making - ED course Complexity details: considered differential, d/w patient ED course: 77-year-old female presents to the Emergency Department with a lancinating pain to her back similar to what she has had previously when she had the shingles. She is under stress of having to return to [facility] for radiation therapy again. We discussed treatment of the shingles and we have elected to begin murtaza atment now as she is only have a day into her symptoms. Departure - Departure Disposition: Home, Self Care Clinical Impression: Shingles Qualifiers: Herpes zoster complications: without complications Qualified Code(s): B02.9 - Zoster without complications Condition: Stable Instructions: ED Shingles Follow-Up: Letitia Garcia MD [Primary Care Provider] - Prescriptions: valACYclovir [Valtrex] 1,000 mg PO TID #15 tablet Comments: Chandrika, today it does look like you have the shingles as a cause of this lancinating pain to your back. I have E scribed some Ayleen acyclovir to the [facility] in [place]. This may reduce the length of time you have symptoms from a week to 10 days down to 4 to 5 days.
== END 2022-08-30 12:52 | disposition home or self-care (01) ==
LOC: ED 09:44
DX: B02.9 Zoster without complications (principal); J44.9 Chronic obstructive pulmonary disease, unspecified
CPT/HCPCS: 99281; 99283

== ENCOUNTER 2023-10-01 10:25 | Emergency (ER) | payer MEDICARE ==
[2023-10-01 11:00] VITALS: O2SAT 98
[2023-10-01] MEDS: cephALEXin 250 MG CAPSULE PO STA (11:56)
[2023-10-01 12:10] LABS: HCT - HEMATOCRIT 29.5 % (37.0-47.0); HGB - HEMOGLOBIN 9.4 g/dL (12.0-16.0); LYMPHOCYTES # (AUTO) 0.2 10^3/uL (1.5-3.5); LYMPHOCYTES % (AUTO) 5.8 %; MEAN CORPUSCULAR HEMOGLOBIN 30.8 pg (27.0-31.0); MEAN CORPUSCULAR HGB CONC 31.9 g/dL (32.0-36.0); MEAN CORPUSCULAR VOLUME 96.7 fL (81.0-99.0); MEAN PLATELET VOLUME 10.5 fL (7.9-10.8); MONOCYTES # (AUTO) 0.1 10^3/uL (0.0-1.0); MONOCYTES % (AUTO) 2.4 %; NEUTROPHILS # (AUTO) 2.6 10^3/uL (1.5-6.6); NEUTROPHILS % (AUTO) 89.5 %; PLT - PLATELET COUNT 227 10^3/uL (130-450); RED BLOOD COUNT 3.05 10^6/uL (4.20-5.40); RED CELL DISTRIBUTION WIDTH 16.8 % (12.0-15.0); WHITE BLOOD COUNT 2.9 x10^3/uL (4.8-10.8)
[2023-10-01 12:29] LABS: SLIDE REVIEW? Indicated
[2023-10-01 12:30] LABS: ALBUMIN 3.6 g/dL (3.2-5.5); ALBUMIN/GLOBULIN RATIO 1.1 (1.0-2.2); BILIRUBIN,TOTAL 0.7 mg/dL (0.2-1.0); CALCIUM 9.6 mg/dL (8.5-10.3); CREATININE 0.9 mg/dL (0.6-1.3); MAGNESIUM 1.8 mg/dL (1.7-2.3); PLATELET ESTIMATE, MANUAL NORMAL (130-450,000) (NORMAL); PLATELET MORPHOLOGY NORMAL APPEARANCE (NORMAL); POTASSIUM 4.2 mmol/L (3.5-4.5); TOTAL PROTEIN 6.8 g/dL (6.4-8.9)
[2023-10-01 12:33] LABS: WBC MORPHOLOGY (MULTIPLE) NORMAL APPEARANCE (NORMAL)
--- NOTE | 2023-10-01 12:34 | XRAY Report ---
PROCEDURE: Chest 1V INDICATIONS: chest pain TECHNIQUE: One view of the chest was acquired. COMPARISON: 03/19/2018 FINDINGS: Surgical changes and devices: None. Lungs and pleura: There is been interval increase in scarring and volume loss in the right lung with shift of mediastinum to the right, accentuated by rotation. The left lung of pleural spaces are duke r Mediastinum: Mediastinal contours appear normal. Heart size is normal. Bones and chest wall: No suspicious bony lesions. Overlying soft tissues appear unremarkable. IMPRESSION: Right lung scarring and volume loss with mediastinal shift consistent with prior cancer therapy. Unde rlying infiltrate in the right lung would be difficult to exclude. Left lung is clear. Reviewed by: Tacho Aburto MD on 10/01/2023 11:33 AM JEREMIAH Approved by: Tacho Aburto MD on 10/01/2023 11:33 AM JEREMIAH Station ID: [id number]
[2023-10-01 12:59] VITALS: BP 134/86
--- NOTE | 2023-10-01 13:16 | ED Physician Documentation ---
PD HPI UPPER EXT INJURY - Stated complaint Stated Complaint: ARM SORE/FEVER(C+ PER PT) - Chief complaint Chief Complaint: Ext Problem - History obtained from History obtained from: Patient PD PAST MEDICAL HISTORY - Past Medical History Past Medical History: Yes Cardiovascular: None Respiratory: COPD, Other Neuro: Motion sickness Endocrine/Autoimmune: None GI: GERD : None HEENT: None Psych: None Musculoskeletal: Osteoarthritis Derm: None - Past Surgical History Past Surgical History: Yes HEENT: Tonsil/Adenoidectomy - Present Medications Home Medications: Ambulatory Orders Medication Instructions Recorded Confirmed Cholecalciferol (Vitamin D3) 0 unit PO 03/19/18 [Vitamin D3] Magnesium 1 tab PO DAILY 03/19/18 10/01/23 Acetaminophen [Tylenol] 1 tab PO PRN PRN 10/01/23 10/01/23 Calcium Carbonate [Calcium] 1 tab PO DAILY 10/01/23 10/01/23 Exemestane [Aromasin] 1 tab PO DAILY 10/01/23 10/01/23 Potassium Citrate [Potassium] 1 cap PO DAILY 10/01/23 10/01/23 cephALEXin [Keflex] 500 mg PO QID #20 cap 10/01/23 diphenhydrAMINE [Benadryl] 1 tab PO PRN PRN 10/01/23 10/01/23 - Allergies Allergies/Adverse Reactions: Allergies Allergy/AdvReac Type Severity Reaction Status Date / Time ibuprofen Allergy Edema Verified 10/01/23 10:45 - Social History Does the pt smoke?: No Smoking Status: Never smoker Does the pt drink ETOH?: No Does the pt have substance abuse?: No - Immunizations Immunizations are current?: Yes - POLST Patient has POLST: No Results - Vitals Vitals: Vital Signs - 24 hr 10/01/23 10/01/23 10:42 12:45 Temperature 35.7 C L 37.8 C Heart Rate 102 H 90 Respiratory 20 18 Rate Blood Pressure 161/78 H 134/86 H O2 Saturation 98 98 Oxygen O2 Source Room air - Labs Labs: Laboratory Tests 10/01/23 10/01/23 12:02 12:02 WBC 2.9 L RBC 3.05 L Hgb 9.4 L Hct 29.5 L MCV 96.7 MCH 30.8 MCHC 31.9 L RDW 16.8 H Plt Count 227 MPV 10.5 Neut # (Auto) 2.6 Lymph # (Auto) 0.2 L [place] # (Auto) 0.1 Eos # (Auto) 0.0 Baso # (Auto) 0.0 Absolute Nucleated RBC 0.00 Nucleated RBC % 0.0 Manual Slide Review Indicated WBC Morphology NORMAL APPEARANCE Platelet Estimate NORMAL (130-450,000) Platelet Morphology NORMAL APPEARANCE RBC Morph Micro Appear 1+ SPHEROCYTES Sodium 135 Potassium 4.2 Chloride 101 Carbon Dioxide 24 Anion Gap 10.0 BUN 12 Creatinine 0.9 Estimated GFR (MDRD) 60 L Glucose 92 Calcium 9.6 Magnesium 1.8 Total Bilirubin 0.7 AST 32 ALT 29 Alkaline Phosphatase 48 Total Protein 6.8 Albumin 3.6 Globulin 3.2 Albumin/Globulin Ratio 1.1 Lipase 12 PD Medical Decision Making - ED course Complexity details: reviewed results (had IV left forearm last Monday for chemo and has had some tenderness at time of IV revomal but really increased tenderness. local redness, warmth and tender c/w superficial phlebitis. Consider if concurrrent cellulitis. Shwe is having COVID with URI symptoms and that is likely the cause of fevers.), considered differential (she is post chemo but not clear if neutropneic. Has fever with some congestion and is COVID positiver at home. Got Rx for Palovid. Has pain in left forearm after IV and chemo dosing 6 days ago. ), d/w patient Reviewed Lab Results: WBC 2.9; is not neutropenic. Still cautious of potential infections, so can treat for possible cellulitis of left forearm. Departure - Departure Disposition: 01 Home, Self Care Clinical Impression: Neutropenia, Status post chemotherapy, Superficial phlebitis, Fever, COVID-19 Condition: Stable Record reviewed to determine appropriate education?: Yes Instructions: ED Phlebitis Superficial Follow-Up: Letitia Garcia MD [Primary Care Provider] - Prescriptions: cephALEXin [Keflex] 500 mg PO QID #20 cap Comments: Your white cell count is low but not extremely low. It is 2.9. Your other chemistry blood tests are good without any abnormality of electrolytes, sugar, kidney function. We did do blood cultures and those will result in a couple of days with regard to your fever. Your chest x-ray did not show any obvious pneumonia. The redness and swelling on your forearm is consistent with an inflammation of the the surface vein where they had the IV. This is called superficial phlebitis is in is typically a inflammatory process. There can be some mild clotting in the surface veins. This is not dangerous (as compared to of the deeper veins, DVT). The superficial phlebitis is treated typically with heat to help soften any clot in the surface vein. You can do some warm moist towels a few times daily. Tylenol every 4-6 hours if needed for pains. There could be concern for an infection of the skin in addition to the inflammation of the vein. As such I would prescribe cephalexin 4 times daily for the next 5 days as well. The fever you are having is likely related to the COVID infection as compared to the phlebitis on the arm. Your white cell count is not dangerously low and therefore you should be able to go home and see how you do. Again Tylenol every 4-6 hours for the next few days to help with fevers and general aches from the infection. I sent your prescription to [facility] in [place]. Recheck if not improved well over the next few days but it would be expected to have some degree of fevers up and down for another 2 to 3 days from the virus. The redness in the forearm should improve over the next few days. Forms: PCP List Discharge Date/Time: 10/01/23 13:22
== END 2023-10-01 13:22 | disposition home or self-care (01) ==
LOC: ED 10:25
DX: I80.8 Phlebitis and thrombophlebitis of other sites (principal); U07.1 COVID-19; D70.9 Neutropenia, unspecified; Z79.60 Long term (current) use of unspecified immunomodulators and immunosuppressants; J44.9 Chronic obstructive pulmonary disease, unspecified; Z79.899 Other long term (current) drug therapy
CPT/HCPCS: 36415; 71045; 80053; 83690; 83735; 85025; 87040; 99284; A9270

== ENCOUNTER 2023-11-27 13:03 | Inpatient (IN) | payer MEDICARE ==
[2023-11-27 13:53] LABS: BASOPHILS % (AUTO) 0.2 %; EOSINOPHILS % (AUTO) 0.7 %; HCT - HEMATOCRIT 32.6 % (37.0-47.0); HGB - HEMOGLOBIN 9.9 g/dL (12.0-16.0); LYMPHOCYTES # (AUTO) 0.2 10^3/uL (1.5-3.5); MEAN CORPUSCULAR HEMOGLOBIN 30.9 pg (27.0-31.0); MEAN CORPUSCULAR HGB CONC 30.4 g/dL (32.0-36.0); MEAN CORPUSCULAR VOLUME 101.9 fL (81.0-99.0); MEAN PLATELET VOLUME 9.8 fL (7.9-10.8); MONOCYTES # (AUTO) 0.8 10^3/uL (0.0-1.0); NEUTROPHILS # (AUTO) 4.7 10^3/uL (1.5-6.6); NEUTROPHILS % (AUTO) 81.4 %; PLT - PLATELET COUNT 230 10^3/uL (130-450); WHITE BLOOD COUNT 5.7 x10^3/uL (4.8-10.8)
--- NOTE | 2023-11-27 13:54 | ED Physician Documentation ---
PD HPI DYSPNEA - Stated complaint Stated Complaint: SOA - Chief complaint Chief Complaint: Resp - Additional information Additional information: 78-year-old female with complex past medical history including lung cancer right lobectomy, sarcoma and breast cancer. Patient says that she is struggled with shortness of breath now for the last 6 to 7 years due to lung cancer diagnoses. 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 She had a right lobectomy about 6 years ago she had COVID 1 month ago and has been having ongoing shortness of breath since then but over the last couple weeks has gotten significantly worse. Over the last 2 days it has gotten very acutely worse to the point where she is having a really hard time walking short distances due to the severity of the shortness of breath. No recent medication changes no fevers or chills no nausea or vomiting. PD PAST MEDICAL HISTORY - Past Medical History Cardiovascular: None Respiratory: COPD, Other Neuro: Motion sickness Endocrine/Autoimmune: None GI: GERD KETTLEMAN: Breast cancer : None HEENT: None Psych: None Musculoskeletal: Osteoarthritis Derm: None Other Past Medical History: UPS - Past Surgical History Past Surgical History: Yes Cardiovascular: Lobectomy HEENT: Tonsil/Adenoidectomy - Present Medications Home Medications: Ambulatory Orders Medication Instructions Recorded Confirmed Cholecalciferol (Vitamin D3) 0 unit PO 03/19/18 [Vitamin D3] Magnesium 1 tab PO DAILY 03/19/18 10/01/23 Acetaminophen [Tylenol] 1 tab PO PRN PRN 10/01/23 10/01/23 Calcium Carbonate [Calcium] 1 tab PO DAILY 10/01/23 10/01/23 Exemestane [Aromasin] 1 tab PO DAILY 10/01/23 10/01/23 Potassium Citrate [Potassium] 1 cap PO DAILY 10/01/23 10/01/23 cephALEXin [Keflex] 500 mg PO QID #20 cap 10/01/23 diphenhydrAMINE [Benadryl] 1 tab PO PRN PRN 10/01/23 10/01/23 - Allergies Allergies/Adverse Reactions: Allergies Allergy/AdvReac Type Severity Reaction Status Date / Time ibuprofen Allergy Edema Verified 11/27/23 13:35 - Social History Does the pt smoke?: No Smoking Status: Never smoker Does the pt drink ETOH?: No Does the pt have substance abuse?: No - Immunizations Immunizations are current?: Yes - POLST Patient has POLST: No PD ED PE NORMAL - Vitals Vital signs reviewed: Yes - General General: Alert and oriented X 3, No acute distress, Well developed/nourished - Cardiac Cardiac: Other (tachy) - Respiratory Respiratory: Other (diminished breathsounds throughout) - Abdomen Abdomen: Normal bowel sounds, Soft, Non tender, No organomegaly - Derm Derm: Normal color, Warm and dry, No rash - Extremities Extremities: No edema, No calf tenderness / cord - Neuro Neuro: Alert and oriented X 3, pilates instructor 2-12 intact, No motor deficit, No sensory deficit, Normal speech Results - Vitals Vitals: Vital Signs - 24 hr 11/27/23 11/27/23 11/27/23 13:31 13:35 14:05 Temperature 36.9 C Heart Rate 115 H 109 H 101 H Respiratory 28 H 27 H 27 H Rate Blood Pressure 145/86 H 146/78 H O2 Saturation 87 L 90 L 92 If not protocol 2 2 : Oxygen Flow, liters/minute 11/27/23 11/27/23 11/27/23 14:30 15:24 16:19 Temperature Heart Rate 100 102 H 99 Respiratory 18 25 H 20 Rate Blood Pressure 140/74 H 146/77 H 131/76 H O2 Saturation 92 94 93 If not protocol 4 4 4 : Oxygen Flow, liters/minute 11/27/23 11/27/23 11/27/23 17:00 17:30 18:11 Temperature Heart Rate 97 95 93 Respiratory 18 19 26 H Rate Blood Pressure 140/83 H 137/77 H 152/89 H O2 Saturation 93 92 92 If not protocol 4 4 4 : Oxygen Flow, liters/minute 11/27/23 11/27/23 18:30 19:00 Temperature Heart Rate 96 96 Respiratory 23 22 Rate Blood Pressure 135/86 H 157/90 H O2 Saturation 95 95 If not protocol 4 4 : Oxygen Flow, liters/minute Oxygen O2 Source Nasal cannula Oxygen Flow Rate 2 - EKG (time done) 1324 EKG releavant findings:: EKG personally interpreted by author of this note. Relevant findings are: Rate: Rate (enter#) (108) Rhythm: Other (Sinus atrial tachycardia) [place]: Normal, Other (Atrial premature complexes) QRS: Normal Ischemia: Normal ST segments, Other (old anterior infarct) Computer interpretation: Agree with computer - Labs Labs: Laboratory Tests 11/27/23 11/27/23 11/27/23 13:46 13:46 13:46 WBC 5.7 RBC 3.20 L Hgb 9.9 L Hct 32.6 L MCV 101.9 H MCH 30.9 MCHC 30.4 L RDW 20.0 H Plt Count 230 MPV 9.8 Neut # (Auto) 4.7 Lymph # (Auto) 0.2 L [place] # (Auto) 0.8 Eos # (Auto) 0.0 Baso # (Auto) 0.0 Absolute Nucleated RBC 0.00 Nucleated RBC % 0.0 Sodium 137 Potassium 4.8 H Chloride 106 Carbon Dioxide 23 Anion Gap 8.0 BUN 16 Creatinine 1.0 Estimated GFR (MDRD) 53 L Glucose 125 H Calcium 9.2 Total Bilirubin 0.7 AST 26 ALT 18 Alkaline Phosphatase 66 Troponin I High Sens 11.6 B-Natriuretic Peptide 171 H Total Protein 5.9 L Albumin 3.2 Globulin 2.7 Albumin/Globulin Ratio 1.2 Lipase < 10 L - Rads (name of study) Chest x-ray Relevant Findings:: Final report received, EMP independent interpretation of test, Other (Screening volume loss within the right hemithorax and mediastinal shift to the right redemonstrated. Aeration of the right lung appears decreased compared to prior and worsening volume loss versus superimposed infection.) Angio chest with and without Relevant Findings:: Final report received, EMP independent interpretation of test, Other (No pulmonary emboli, pleural thickening and scarring noted within the right hemithorax. Diffuse send try low particular septal wall thickening with mild groundglass opacities concerning for edema small bilateral pleural effusions adjacent atelectasis versus consolidation. Left lobe nodule 11 mm) PD Medical Decision Making - ED course ED course: 78-year-old female presents emerged part for increased shortness of breath that has gotten acutely worse over the last 2 days. She was tachycardic and hypoxic with history of lung cancer so CT angio chest was complete to rule out possible PE. On room air patient was satting around 87% at home she is not on oxygen. CT did not reveal any pulmonary emboli, there is redemonstration of postsurgical changes with right lobectomy pleural thickening and scarring is noted within the right hemithorax. Scarring versus opacity within the right lung. She also has diffuse centrilobular septal thickening with mild groundglass opacities concerning for edema. Small bilateral pleural effusion with adjacent atelectasis versus consolidation. New left upper lobe nodule measuring 11 mm. Given that patient has been feeling febrile at home is quite hypoxic and CT scan with obvious edema I believe that patient benefit from hospitalization IV antibiotics. At the time of patient being in the emergency department she did not meet sepsis criteria although given patient's complex past medical history I went ahead and started her on IV cefepime and vancomycin. Patient was also given 125 mg of IV Solu-Medrol to help with hypoxia and shortness of breath. Respiratory panel is pending. I spoke with Dr. Sánchez about hospitalizing patient and she graciously has agreed to admit the patient. Patient is agreeable to stay. Departure - Departure Disposition: 66 [facility] DC/Xfer Clinical Impression: Pneumonia, Acute respiratory failure
[2023-11-27] MEDS: methylPREDNISolone SUCCINATE 125 MG/2 ML VIAL IVP STA (14:06)
[2023-11-27 14:10] LABS: ALBUMIN 3.2 g/dL (3.2-5.5); ALBUMIN/GLOBULIN RATIO 1.2 (1.0-2.2); ALKALINE PHOSPHATASE 66 IU/L (42-121); ALT ALANINE AMINOTRANSFERASE 18 IU/L (10-60); AST ASPARTATE AMINOTRANSFERASE 26 IU/L (10-42); BILIRUBIN,TOTAL 0.7 mg/dL (0.2-1.0); BUN - BLOOD UREA NITROGEN 16 mg/dL (6-20); CALCIUM 9.2 mg/dL (8.5-10.3); CARBON DIOXIDE - CO2 23 mmol/L (21-32); CHLORIDE 106 mmol/L (101-111); GFR - MDRD 53 (>89); GLUCOSE 125 mg/dL (74-104); LIPASE < 10 U/L (11-82); POTASSIUM 4.8 mmol/L (3.5-4.5); SODIUM 137 mmol/L (135-145); TOTAL PROTEIN 5.9 g/dL (6.4-8.9)
[2023-11-27 14:12] LABS: TROPONIN I HIGH SENSITIVITY 11.6 ng/L (2.3-14.8)
[2023-11-27] MEDS: ACETAMINOPHEN 500 MG TABLET PO STA (14:47)
[2023-11-27] MEDS ORDERED: iohexoL-300 100 ML VIAL ONE (15:14)
--- NOTE | 2023-11-27 16:04 | XRAY Report ---
PROCEDURE: Chest 1V INDICATIONS: Chest pain TECHNIQUE: One view of the chest was acquired. COMPARISON: 10/01/2023 FINDINGS: Surgical changes and devices: None. Lungs and pleura: Scarring and volume loss within the right hemithorax with mediastinal shift to the right is redemonstrated. Aeration of the right lung appears decreased compared to prior. Mediastinum: Mediastinal contours appear normal. Heart size is normal. Bones and chest wall: No suspicious bony lesions. Overlying soft tissues appear unremarkable. IMPRESSION: Scarring and volume loss within the right hemithorax with mediastinal shift to the right is redemonst rated. Aeration of the right lung appears decreased compared to prior, there is a worsening volume lo ss versus superimposed infection. Reviewed by: Javy Livingston MD on 11/27/2023 4:03 PM PDT Approved by: Javy Livingston MD on 11/27/2023 4:03 PM PDT Station ID: [id number]
[2023-11-27] MEDS: HYDROmorphone 0.5 MG/0.5 ML SYRINGE IVP STA (16:44)
[2023-11-27] MEDS: iohexoL-300 100 ML VIAL IVP ONE (18:17)
--- NOTE | 2023-11-27 18:55 | CT Report ---
PROCEDURE: Angio Chest INDICATIONS: SOA, hx cancerm tachy, r/o PE CONTRAST: 80ml [id number] TECHNIQUE: After the administration of intravenous contrast, 2 mm axial images were acquired from the pulmonary apices to the posterior costophrenic angles during the arterial phase. In addition, 1 mm lung kernel and 5 mm soft tissue kernel reconstructions were performed. 3-dimensional coronal oblique maximum int ensity projection (MIP) reformats, 8 mm axial MIP, and 5 mm coronal and sagittal MPR reformats were t hen performed through the thorax. For radiation dose reduction, the following was used: automated exp osure control, adjustment of mA and/or kV according to patient size. COMPARISON: CT chest 03/19/2018. FINDINGS: Image quality: Excellent. Large vessels: Main pulmonary artery is dilated measuring 4.1 cm. No filling defects within the opaci fied pulmonary arteries, accounting for motion and contrast timing. No evidence of acute aortic syndr ome or aortic aneurysm. Lungs and pleura: Small bilateral pleural effusions with adjacent atelectasis versus consolidation. P rior right lobectomy changes are again noted. Pleural thickening and scarring is noted within the rig ht hemithorax. Scarring versus opacity within the right lung. Redemonstration of emphysematous change s. Left upper lobe pulmonary nodule is new compared to prior measuring 11 mm (08/27). Diffuse intralob ar septal thickening, groundglass. Mediastinum: Heart size is enlarged. No pericardial effusion. No large vessel abnormality. No mediast inal adenopathy by size criteria. Chest wall and lower neck: Thyroid is unremarkable. No axillary or supraclavicular adenopathy by size . Bones: No aggressive osseous abnormality. Degenerative changes of the spine. Upper Abdomen: Unremarkable. IMPRESSION: 1.No pulmonary embolus. 2.Redemonstration of postsurgical changes with right lobectomy. Pleural thickening and scarring is no joseph within the right hemithorax. Scarring versus opacity within the right lung, recommend correlation for signs of infection. 3.Diffuse centrilobular septal thickening and mild groundglass is noted concerning for edema. Small b ilateral pleural effusions with adjacent atelectasis versus consolidation. 4.New left upper lobe nodule measuring 11 mm. Per Fleischner criteria, follow-up CT chest in 3 months or PET/CT can be obtained for further evaluation. 5.Dilated main pulmonary artery, suggestive of pulmonary hypertension. Reviewed by: Javy Livingston MD on 11/27/2023 6:53 PM PDT Approved by: Javy Livingston MD on 11/27/2023 6:53 PM PDT Station ID: [id number]
[2023-11-27] MEDS: CEFEPIME 2 GM in SODIUM CHLORIDE 0.9% MINIBAG 100 ML IV STA (19:53)
[2023-11-27] MEDS: SODIUM CHLORIDE 0.9% 1,000 ML IV ONE (19:53)
[2023-11-27] MEDS ORDERED: SODIUM CHLORIDE FLUSH 0.9% 10 ML SYRINGE IVP PRN (20:11)
[2023-11-27] MEDS ORDERED: ONDANSETRON 4 MG/2 ML VIAL IVP PRN (20:11)
[2023-11-27] MEDS ORDERED: IPRATROPIUM/ALBUTEROL 3 ML NEB INH PRN (20:18)
--- NOTE | 2023-11-27 20:41 | HISTORY & PHYSICAL EXAMINATION ---
Chief Complaint - Chief Complaint Chief Complaint: shortness of breath History of Present Illness - Admitted From Admitted From:: home/ED - History Obtained From History obtained from: Patient/ED physician Exam Limitations: None - History of Present Illness HPI Comment/Other: Mrs. Amato is a 78-year-old female with a history of lung cancer, right lobectomy, sarcoma and breast cancer. Patient presented to the ED for evaluation of worsening shortness of breath. She explained due her lung cancer and copd, she has shortness of breath at baseline which had remained stable for the past several years. She does not use oxygen at home. She was recently diagnosed and treated for Covid a month prior to her presentation. She was recovering well until about 2 weeks ago when she started to experience worsening exertional dyspnea. This progressed until 2 days prior to her presentation when she noted a drop in her oxygen saturation at home. She denied any cough, fever, chest pain. she has noticed increase bilateral lower extremity edema over the pa st few weeks. she does not have a longstanding cardiac history. Workup demonstrated bilateral lower lobe infiltrates and right lobe opacity concerning for pneumonia. She was hypoxic on room air inthe low 80's and was placed on nasal canula oxygen. WBC was within normal limits. During my face to face encounter, patient was resting comfortably in no acute distress. Vitals were stable. She was on supplemental oxygen via nasal canula. She will be admitted for treatment of pneumonia with empiric antibiotics and supplemental oxygen. Evaluation for possble co-existing cardiac etiology will be pursued as well. Plan of care was discussed with patient,including the usage of tele-medicine for this visit. Patient provided verbal consent. Real time tele- health tool were utilized during this visit including telephone and live-video. History - Past Medical History Cardiovascular: reports: None Respiratory: reports: COPD, Other Neuro: reports: Motion sickness Endocrine/Autoimmune: reports: None GI: reports: GERD CLIMATE CHANGE RISK ASSESSOR: reports: Breast cancer : reports: None HEENT: reports: None Psych: reports: None Musculoskeletal: reports: Osteoarthritis Derm: reports: None MRSA Hx?: No Other Past Medical History: UPS - Past Surgical History Cardiovascular: reports: Lobectomy HEENT: reports: Tonsil/Adenoidectomy - POLST Patient has POLST: No Meds/Allgy - Home Medications Home Medications: Ambulatory Orders Medication Instructions Recorded Confirmed Cholecalciferol (Vitamin D3) 0 unit PO 03/19/18 [Vitamin D3] Magnesium 1 tab PO DAILY 03/19/18 10/01/23 Acetaminophen [Tylenol] 1 tab PO PRN PRN 10/01/23 10/01/23 Calcium Carbonate [Calcium] 1 tab PO DAILY 10/01/23 10/01/23 Exemestane [Aromasin] 1 tab PO DAILY 10/01/23 10/01/23 Potassium Citrate [Potassium] 1 cap PO DAILY 10/01/23 10/01/23 cephALEXin [Keflex] 500 mg PO QID #20 cap 10/01/23 diphenhydrAMINE [Benadryl] 1 tab PO PRN PRN 10/01/23 10/01/23 - Allergies Allergies/Adverse Reactions: Allergies Allergy/AdvReac Type Severity Reaction Status Date / Time ibuprofen Allergy Edema Verified 11/27/23 13:35 Review of Systems - Constitutional Constitutional: reports: Fatigue. denies: Fever, Chills - Respiratory Respiratory: reports: SOB at rest, SOB with exertion. denies: Cough, Sputum production, Wheezing - All Other Systems All Other Systems: reports: Reviewed and negative Exam - Vital Signs Reviewed Vital Signs: Yes Vital Signs: Vital Signs x48h Temp Pulse Resp BP Pulse Ox O2 Flow Rate 11/27/23 20:13 98 18 160/99 H 94 11/27/23 19:00 96 22 157/90 H 95 4 11/27/23 18:30 96 23 135/86 H 95 4 11/27/23 18:11 93 26 H 152/89 H 92 4 11/27/23 17:30 95 19 137/77 H 92 4 11/27/23 17:00 97 18 140/83 H 93 4 11/27/23 16:19 99 20 131/76 H 93 4 11/27/23 15:24 102 H 25 H 146/77 H 94 4 11/27/23 14:30 100 18 140/74 H 92 4 11/27/23 14:05 101 H 27 H 146/78 H 92 2 11/27/23 13:35 109 H 27 H 90 L 2 11/27/23 13:31 36.9 C 115 H 28 H 145/86 H 87 L - Physical Exam General Appearance: positive: No acute distress, Alert Respiratory: positive: Chest non-tender, No respiratory distress, Breath sounds nml Cardiovascular: positive: Regular rate & rhythm, No murmur, No gallop Extremities: positive: Non-tender, Full ROM, Pedal edema Neurologic/Psychiatric: positive: Oriented x3, Mood/affect nml Comments/Other: Physical exam as recorded, is based on patient reported information or obtained through peripheral Sepsis Event Note (H) - Evaluation Current Stage of Sepsis: Ruled out Conclusion/Plan - Problem List (1) Pneumonia Conclusion/Plan: - chest xray and CT imaging reviewed independently by myself: evidence of opacity and infiltrate noted concerning for pneumonia -continue with empiric antibiotics, blood cultures obtained upon admission -rapid flu pending, defer repeat covid testing as could remain positive. -monitor vitals with continuous telemetry, serial blood pressure and temperature checks -duonebs as needed for shortness of breath, wheezing -antitussive for cough (2) Acute respiratory failure Conclusion/Plan: -acute hypoxic respiratory failure, suspected secondary to acute infection in the setting of chronic lung disease -will continue wiht supplemental oxygen -will check procalcitonin level -cardiovascular etiology can not be excluded: will obtain ECHO and trend troponin -further evaluation by cardiology consultation may be warranted pending results of inital cardio workup - Lab Results Fish Bones: 11/27/23 13:46 11/27/23 13:46 - Diagnostic Imaging Results Diagnostic Imaging Results: positive: Final report reviewed, See rad report Core Measures - Anticipated LOS I expect patient to be DC'd or transferred within 96 hours.: Yes Telemedicine Consult Details - Provider Location & Consult Time Telemedicine consultation conducted via videoconferencing?: Yes
[2023-11-27] MEDS ORDERED: SODIUM CHLORIDE 0.9% 1,000 ML IV SCH (21:00)
[2023-11-27] MEDS ORDERED: VANCOMYCIN 1 GM VIAL ONE (21:07)
[2023-11-27] MEDS: VANCOMYCIN INJ 2 GM in SODIUM CHLORIDE 0.9% 500 ML IV ONE (21:12)
[2023-11-27 21:28] LABS: B. PARAPERTUSSIS- RESP PCR PAN NOT DETECTED; B. PERTUSSIS- RESP PCR PANEL NOT DETECTED; C. PNEUMONIAE- RESP PCR PANEL NOT DETECTED; CORONAVIRUS 229E-RESP PCR NOT DETECTED; CORONAVIRUS HKU1-RESP PCR NOT DETECTED; CORONAVIRUS NL63-RESP PCR NOT DETECTED; CORONAVIRUS OC43-RESP PCR NOT DETECTED; HUMAN METAPNEUMOVIRUS NOT DETECTED; INFLUENZA A- RESP PCR PANEL NOT DETECTED; INFLUENZA B - RESP PCR PANEL NOT DETECTED; M. PNEUMONIAE- RESP PCR PANEL NOT DETECTED; PARAINFLUENZA VIRUS 1 NOT DETECTED; PARAINFLUENZA VIRUS 2 NOT DETECTED; PARAINFLUENZA VIRUS 3 NOT DETECTED; PARAINFLUENZA VIRUS 4 NOT DETECTED; RHINOVIRUS/ENTEROVIRUS NOT DETECTED; RSV- RESP PCR PANEL NOT DETECTED; SARS-CoV-2 -RESP PCR PANEL NOT DETECTED
[2023-11-27] MEDS: ACETAMINOPHEN 325 MG TABLET PO PRN (22:40)
[2023-11-27] MEDS: oxyCODONE 5 MG TABLET PO PRN (22:40)
[2023-11-28] MEDS: SODIUM CHLORIDE FLUSH 0.9% 10 ML SYRINGE IVP SCH (01:22)
[2023-11-28] MEDS: CALCIUM CARBONATE CHEW 500 MG TABLET PO SCH ×2 (08:23→20:47)
[2023-11-28] MEDS: PANTOPRAZOLE 40 MG VIAL IVP SCH (08:24)
[2023-11-28] MEDS: AZITHROMYCIN INJ 500 MG in SODIUM CHLORIDE 0.9% 250 ML IV SCH (08:24)
[2023-11-28] MEDS ORDERED: PANTOPRAZOLE 40 MG VIAL IVP SCH (09:00)
[2023-11-28] MEDS ORDERED: cefTRIAXone 1 GM VIAL IVP SCH (09:00)
[2023-11-28] MEDS: cefTRIAXone 1 GM in SODIUM CHLORIDE 0.9% MINIBAG 100 ML IV SCH (09:27)
--- NOTE | 2023-11-28 10:15 | PROVIDER PROGRESS NOTE ---
Subjective - Prog Note Date Prog Note Date: 11/28/23 Prog Note Time: 09:00 - Subjective Pt reports feeling: Improved Subjective: Mrs. Amato is a 78-year-old female with a history of NEC lung cancer, right lobectomy, undifferentiated pleomorphic sarcoma, and breast cancer. She is on hormone replacement therapy and a 4 week chemo regimen with gemcitabin and vinorelbine. Patient presented to the ED on 11/26 for evaluation of worsening shortness of breath. She explained due her lung cancer and copd, she has shortness of breath at baseline which had remained stable for the past several years. She does not use oxygen at home and reports her baseline O2 sats are in the low 90's per her fitbit. She was recently diagnosed with Covid 6 weeks ago and treated with Paxlovid. She was recovering well until about 2 weeks ago when she started to experience worsening exertional dyspnea. This progressed until 2 days prior to her presentation when she noted a drop in her oxygen saturation at home. She denied any cough, fever, or chest pain. She has noticed increase bilateral lower extremity edema over the past few weeks. She does not have a longstanding cardiac history. Workup demonstrated bilateral lower lobe infiltrates and right lobe opacity concerning for pneumonia. She was hypoxic on room air inthe low 80's and was placed on nasal canula oxygen. WBC was within normal limits. She was on supplemental oxygen via nasal canula and was admitted for treatment of pneumonia with empiric antibiotics and supplemental oxygen. Evaluation for possble co- existing cardiac etiology is being done, BNP mildly elevated at 171 and ECHO p ending. Today she is seated upright in bed on O2 at 2 lpm via n/c with O2 sat of 92%. She reports feeling overall improved since since yesterday. She complains of mild shortness of breath at rest and persistent dyspnea on exertion. She denies chest pain, palpitations, abdominal pain, nausea, vomiting, diarrhea, dysuria or fever/chills. She reports her feet feel less swollen, reporting they felt like blocks of wood yesterday. She is supposed to get a chemo prt placed tomorrow. She does not have a current POLST and reports she has an overall good life, traveling with daughter frequently until recently. Current Medications - Current Medications Current Medications: Active Medications Generic Name Dose Route Start Last Admin Trade Name Freq PRN Reason Stop Dose Admin Acetaminophen 650 mg 11/27/23 20:11 11/28/23 06:53 Acetaminophen 325 Mg Tablet PO 650 mg Q4HR PRN Administration Pain 1 to 4, or Fever Albuterol/Ipratropium 3 ml 11/27/23 20:18 Ipratropium/Albuterol 3 Ml Neb INH Q4HR PRN Wheezing Calcium Carbonate/Glycine 500 mg 11/28/23 09:00 11/28/23 08:23 Calcium Carbonate Chew 500 Mg Tablet PO 500 mg BID MELISSA Administration Azithromycin 500 mg/ Sodium 250 mls @ 250 mls/hr 11/28/23 09:00 11/28/23 10:05 Chloride IV 12/03/23 08:59 Infused DAILY MELISSA Infusion Ceftriaxone Sodium 1 gm/ 100 mls @ 200 mls/hr 11/28/23 09:00 11/28/23 10:05 Sodium Chloride IV 12/03/23 09:29 Infused DAILY MELISSA Infusion Ondansetron HCl 4 mg 11/27/23 20:11 Ondansetron 4 Mg/2 Ml Vial IVP Q6HR PRN Nausea / Vomiting Oxycodone HCl 5 mg 11/27/23 20:34 11/28/23 06:53 Oxycodone 5 Mg Tablet PO 5 mg Q4HR PRN Administration Moderate Pain (Level 4-6) Pantoprazole Sodium 40 mg 11/28/23 09:00 11/28/23 08:24 Pantoprazole 40 Mg Vial IVP 40 mg DAILY MELISSA Administration Sodium Chloride 10 ml 11/27/23 20:11 Sodium Chloride Flush 0.9% 10 Ml Syringe IVP PRN PRN NEEDED PER PROVIDER ORDERS Sodium Chloride 10 ml 11/28/23 01:00 11/28/23 08:24 Sodium Chloride Flush 0.9% 10 Ml Syringe IVP 10 ml 0100,0900,1700 MELISSA Administration Cholecalciferol (Vitamin D3) [Vitamin D3] 0 unit PO 03/19/18 Magnesium 1 tab PO DAILY 03/19/18 Acetaminophen [Tylenol] 1 tab PO PRN PRN 10/01/23 Calcium Carbonate [Calcium] 1 tab PO DAILY 10/01/23 Exemestane [Aromasin] 1 tab PO DAILY 10/01/23 Potassium Citrate [Potassium] 1 cap PO DAILY 10/01/23 diphenhydrAMINE [Benadryl] 1 tab PO PRN PRN 10/01/23 Objective - Vital Signs/Intake & Output Reviewed Vital Signs: Yes Vital Signs: Vital Signs x48h Temp Pulse Resp BP Pulse Ox O2 Flow Rate 11/28/23 07:35 36.5 C 75 16 131/73 H 96 2 11/28/23 04:50 37.1 C 84 16 132/71 H 98 4 Intake & Output: Intake & Output 11/25/23 11/26/23 11/27/23 11/28/23 23:59 23:59 23:59 23:59 Intake Total 1100 850 Balance 1100 850 - Objective General Appearance: positive: Mild distress (Mild dyspnea), Other (78 y/o female, alert and interactive, well nourished, Left chest mildly hyperinflated with minimal right chest movement on respiration) Eyes Bilateral: positive: Normal inspection Respiratory: positive: Chest non-tender, Rales (Rales bilateral bases and diffuse right lung), Other (Diminished lung sounds on right). negative: No respiratory distress (Mild respiratory distress, speaking 8-10 word sentences, RR 20 during assessment, no accessory muscle use), Breath sounds nml, Wheezes, Rhonchi Cardiovascular: positive: Regular rate & rhythm, No murmur, No gallop, Other (Split S2 that varies with respiration) Peripheral Pulses: 2+ Radial (R), 2+ Radial (L), 2+ Dorsalis pedis (R), 2+ Dorsalis pedis (L) Abdomen: positive: Non-tender, Nml bowel sounds, No distention Back: positive: Nml inspection Skin: positive: Color nml, No rash, Warm, Dry, Other (Large vertical scar right back lateral to the spine) Extremities: positive: Pedal edema (Mild non-pitting pedal edema), Other (Chronic right shoulder pain) Neurologic/Psychiatric: positive: Oriented x3, CN's nml (2-12), Motor nml, Sen sation nml, Mood/affect nml - Lab Results Fish Bones: 11/27/23 13:46 11/27/23 13:46 Other Labs: Lab Results x24hrs 11/28/23 11/27/23 11/27/23 Range/Units 03:10 23:49 21:03 WBC (4.8-10.8) x10^3/uL RBC (4.20-5.40) 10^6/uL Hgb (12.0-16.0) g/dL Hct (37.0-47.0) % MCV (81.0-99.0) fL MCH (27.0-31.0) pg MCHC (32.0-36.0) g/dL RDW (12.0-15.0) % Plt Count (130-450) 10^3/uL MPV (7.9-10.8) fL Neut # (Auto) (1.5-6.6) 10^3/uL Lymph # (Auto) (1.5-3.5) 10^3/uL Gage # (Auto) (0.0-1.0) 10^3/uL Eos # (Auto) (0.0-0.7) 10^3/uL Baso # (Auto) (0.0-0.1) 10^3/uL Absolute Nucleated RBC x10^3/uL Nucleated RBC % /100WBC Sodium (135-145) mmol/L Potassium (3.5-4.5) mmol/L Chloride (101-111) mmol/L Carbon Dioxide (21-32) mmol/L Anion Gap (6-13) BUN (6-20) mg/dL Creatinine (0.6-1.3) mg/dL Estimated GFR (MDRD) (>89) Glucose (74-104) mg/dL Calcium (8.5-10.3) mg/dL Total Bilirubin (0.2-1.0) mg/dL AST (10-42) IU/L ALT (10-60) IU/L Alkaline Phosphatase (42-121) IU/L Troponin I High Sens 7.8 8.8 10.0 (2.3-14.8) ng/L B-Natriuretic Peptide (5-100) pg/mL Total Protein (6.4-8.9) g/dL Albumin (3.2-5.5) g/dL Globulin (2.1-4.2) g/dL Albumin/Globulin Ratio (1.0-2.2) Lipase (11-82) U/L Nasal Adenovirus (PCR) Nasal B. parapertussis DNA (PCR) Nasal Coronavir 229E PCR Nasal Coronavir HKU1 PCR Nasal Coronavir NL63 PCR Nasal Coronavir OC43 PCR Nasal Enterovir/Rhinovir PCR Nasal Influenza B PCR Nasal Influenza A PCR Nasal Parainfluen 1 PCR Nasal Parainfluen 2 PCR Nasal Parainfluen 3 PCR Nasal Parainfluen 4 PCR Nasal RSV (PCR) Nasal B.pertussis DNA PCR Nasal C.pneumoniae (PCR) Demetrio Human Metapneumo PCR Nasal M.pneumoniae (PCR) Nasal SARS-CoV-2 (PCR) 11/27/23 11/27/23 11/27/23 Range/Units 20:00 13:46 13:46 WBC (4.8-10.8) x10^3/uL RBC (4.20-5.40) 10^6/uL Hgb (12.0-16.0) g/dL Hct (37.0-47.0) % MCV (81.0-99.0) fL MCH (27.0-31.0) pg MCHC (32.0-36.0) g/dL RDW (12.0-15.0) % Plt Count (130-450) 10^3/uL MPV (7.9-10.8) fL Neut # (Auto) (1.5-6.6) 10^3/uL Lymph # (Auto) (1.5-3.5) 10^3/uL Gage # (Auto) (0.0-1.0) 10^3/uL Eos # (Auto) (0.0-0.7) 10^3/uL Baso # (Auto) (0.0-0.1) 10^3/uL Absolute Nucleated RBC x10^3/uL Nucleated RBC % /100WBC Sodium 137 (135-145) mmol/L Potassium 4.8 H (3.5-4.5) mmol/L Chloride 106 (101-111) mmol/L Carbon Dioxide 23 (21-32) mmol/L Anion Gap 8.0 (6-13) BUN 16 (6-20) mg/dL Creatinine 1.0 (0.6-1.3) mg/dL Estimated GFR (MDRD) 53 L (>89) Glucose 125 H (74-104) mg/dL Calcium 9.2 (8.5-10.3) mg/dL Total Bilirubin 0.7 (0.2-1.0) mg/dL AST 26 (10-42) IU/L ALT 18 (10-60) IU/L Alkaline Phosphatase 66 (42-121) IU/L Troponin I High Sens 11.6 (2.3-14.8) ng/L B-Natriuretic Peptide 171 H (5-100) pg/mL Total Protein 5.9 L (6.4-8.9) g/dL Albumin 3.2 (3.2-5.5) g/dL Globulin 2.7 (2.1-4.2) g/dL Albumin/Globulin Ratio 1.2 (1.0-2.2) Lipase < 10 L (11-82) U/L Nasal Adenovirus (PCR) NOT DETECTED Nasal B. parapertussis DNA (PCR) NOT DETECTED Nasal Coronavir 229E PCR NOT DETECTED Nasal Coronavir HKU1 PCR NOT DETECTED Nasal Coronavir NL63 PCR NOT DETECTED Nasal Coronavir OC43 PCR NOT DETECTED Nasal Enterovir/Rhinovir PCR NOT DETECTED Nasal Influenza B PCR NOT DETECTED Nasal Influenza A PCR NOT DETECTED Nasal Parainfluen 1 PCR NOT DETECTED Nasal Parainfluen 2 PCR NOT DETECTED Nasal Parainfluen 3 PCR NOT DETECTED Nasal Parainfluen 4 PCR NOT DETECTED Nasal RSV (PCR) NOT DETECTED Nasal B.pertussis DNA PCR NOT DETECTED Nasal C.pneumoniae (PCR) NOT DETECTED Demetrio Human Metapneumo PCR NOT DETECTED Nasal M.pneumoniae (PCR) NOT DETECTED Nasal SARS-CoV-2 (PCR) NOT DETECTED 11/27/23 Range/Units 13:46 WBC 5.7 (4.8-10.8) x10^3/uL RBC 3.20 L (4.20-5.40) 10^6/uL Hgb 9.9 L (12.0-16.0) g/dL Hct 32.6 L (37.0-47.0) % MCV 101.9 H (81.0-99.0) fL MCH 30.9 (27.0-31.0) pg MCHC 30.4 L (32.0-36.0) g/dL RDW 20.0 H (12.0-15.0) % Plt Count 230 (130-450) 10^3/uL MPV 9.8 (7.9-10.8) fL Neut # (Auto) 4.7 (1.5-6.6) 10^3/uL Lymph # (Auto) 0.2 L (1.5-3.5) 10^3/uL Gage # (Auto) 0.8 (0.0-1.0) 10^3/uL Eos # (Auto) 0.0 (0.0-0.7) 10^3/uL Baso # (Auto) 0.0 (0.0-0.1) 10^3/uL Absolute Nucleated RBC 0.00 x10^3/uL Nucleated RBC % 0.0 /100WBC Sodium (135-145) mmol/L Potassium (3.5-4.5) mmol/L Chloride (101-111) mmol/L Carbon Dioxide (21-32) mmol/L Anion Gap (6-13) BUN (6-20) mg/dL Creatinine (0.6-1.3) mg/dL Estimated GFR (MDRD) (>89) Glucose (74-104) mg/dL Calcium (8.5-10.3) mg/dL Total Bilirubin (0.2-1.0) mg/dL AST (10-42) IU/L ALT (10-60) IU/L Alkaline Phosphatase (42-121) IU/L Troponin I High Sens (2.3-14.8) ng/L B-Natriuretic Peptide (5-100) pg/mL Total Protein (6.4-8.9) g/dL Albumin (3.2-5.5) g/dL Globulin (2.1-4.2) g/dL Albumin/Globulin Ratio (1.0-2.2) Lipase (11-82) U/L Nasal Adenovirus (PCR) Nasal B. parapertussis DNA (PCR) Nasal Coronavir 229E PCR Nasal Coronavir HKU1 PCR Nasal Coronavir NL63 PCR Nasal Coronavir OC43 PCR Nasal Enterovir/Rhinovir PCR Nasal Influenza B PCR Nasal Influenza A PCR Nasal Parainfluen 1 PCR Nasal Parainfluen 2 PCR Nasal Parainfluen 3 PCR Nasal Parainfluen 4 PCR Nasal RSV (PCR) Nasal B.pertussis DNA PCR Nasal C.pneumoniae (PCR) Demetrio Human Metapneumo PCR Nasal M.pneumoniae (PCR) Nasal SARS-CoV-2 (PCR) ABX Reporting Has patient been on IV antibiotics over the past 48 hours?: Yes Sepsis Event Note (H) - Evaluation Current Stage of Sepsis: Ruled out Assessment/Plan - Problem List (1) Acute hypoxemic respiratory failure Impression: Presented to the ED with worsening dyspnea over the past two weeks, O2 sats low 80's in the ED on RA. She does not use home O2 at baseline. She has a hx of a partial right lobectomy with 2/3 of her lung removed. She was admitted on O2 n/c at 4 lpm with O2 sat of 93-95% on 4-5 lpm at admission. Today, she is satting 92% on 2 lpm with mild dyspnea at rest. There may be concurrent underlying HF contributing to her dyspnea. She has intermittent pedal edema and progressive dyspnea on exertion over the past few months. She reports 2 episodes of palpitations in the past few years with heart rates in the 150's, resolved after 20-45 minutes without intervention. These episodes did not have associated SOB, chest pain, syncope, nausea, or diaphoresis. She denies any palpitations in the past 6 weeks. Alterations in her thoracic anatomy and underlying pulmonary neoplastic disease place her at risk for atrial arrhythmias and pulmonary hypertension. An ECHO has been ordered and is pending. BNP was mildy elevated at 171 and pedal edema is improved since yesterday. I will continue O2 titrated for a sat of 93%. She may a desat study and require home O2 at discharge if she is unable to wean to RA by tomorrow (11/28). (2) Pneumonia Impression: She presents with 2 week hx of worsening dyspnea, had COVID 6 weeks ago that was treated with paxlovid. She denies cough, chest pain, or fever/chills. She feels improved today and reports less dyspnea although she still has mildly elevated RR at rest. CT concerning for pneumonia with opacification of right lung, small bilateral pleural effusion with adjacent atelectasis or consolidation, and david trilobular septal thickening and ground glass opacities concerning for edema. Blood cultures were drawn and are pending at this time. There is no indication of sepsis or bacteremia. Viral swab results were all negative. Started on empiric abx in the ED of vancomycin and cefepime. Cefepime switched to ceftriaxone 1 gm IV daily for 6 days and azithromycin 500 mg IV daily for 5 days. This is day 1 of abx. As I believe her pneumonia is likely community aquired, vancomycin has been discontinued as there is no indication for it. 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 Has had tumors on her right upper back and 2 on her right thigh that were excised. She has 3 previously seen nodules in her left lung and one on her right lung. A new 11mm left upper lobe nodule noted on chest CT 11/[address] f/u in 3 mo per radiologist. It is likely this contributes to her dyspnea and hypoxia. She is scheduled to ge t a chemo port placed tomorrow. 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 She has chronic right hemithorax scarring and pleural thickening with right mediastinal shift. Her exam reveals absent right chest wall movement with respiration, left chest mild hyperinflation with respiratory movement, and rales with diminished lung sounds right kim and rales left lung in base. CT demonstrated a dilated main pulmonary artery consistent with pulmonary hypertension and she has a split S2. While the lobestomy is likely contributing to her dyspnea and underlying thoracic anatomic changes, there is no additional treatment or monitoring for this required during her admission. Qualifiers: Lung location: upper lobe of lung Qualified Code(s): C34.11 - Malignant neoplasm of upper lobe, right bronchus or lung (5) Breast cancer Impression: Invasive ductal carcinoma right breast, slow growing, and currently on estrogen blocking therapy. No evaluation or treatment is needed for this during her admission. I expect she will be discharged home tomorrow and can resume her estrogen rita.
--- NOTE | 2023-11-28 12:00 | PHARMACY PROGRESS NOTE ---
- Best Possible Medication History Admit Date and Time: 11/27/232011 Processed by: Pharmacy Medications reviewed in ED?: Yes Medication History completed: Yes Patient Interview: Completed Secondary Source(s): Pharmacy records, Insurance records As the person ultimately responsible for medication therapy, providers are able to order a medication from an existing home medication list in [facility] via the "Reconcile Routine" prior to Confirmation of that medication by patient support representative. Such practice is discouraged except when the physician, in their clinical judgment, deems that a medical need exists for a medication without regard to previous use.
[2023-11-28] MEDS ORDERED: CARBOXYMETHYLCELLULOSE OPHTH DROPS EACHEYE PRN (16:41)
[2023-11-29 06:25] LABS: BASOPHILS % (AUTO) 0.2 %; EOSINOPHILS % (AUTO) 0.6 %; HCT - HEMATOCRIT 30.9 % (37.0-47.0); HGB - HEMOGLOBIN 9.2 g/dL (12.0-16.0); LYMPHOCYTES # (AUTO) 0.3 10^3/uL (1.5-3.5); LYMPHOCYTES % (AUTO) 4.8 %; MEAN CORPUSCULAR HEMOGLOBIN 30.6 pg (27.0-31.0); MEAN CORPUSCULAR HGB CONC 29.8 g/dL (32.0-36.0); MEAN CORPUSCULAR VOLUME 102.7 fL (81.0-99.0); MEAN PLATELET VOLUME 10.2 fL (7.9-10.8); MONOCYTES # (AUTO) 0.8 10^3/uL (0.0-1.0); MONOCYTES % (AUTO) 15.5 %; NEUTROPHILS # (AUTO) 4.2 10^3/uL (1.5-6.6); NEUTROPHILS % (AUTO) 78.2 %; PLT - PLATELET COUNT 240 10^3/uL (130-450); RED BLOOD COUNT 3.01 10^6/uL (4.20-5.40); RED CELL DISTRIBUTION WIDTH 19.5 % (12.0-15.0); WHITE BLOOD COUNT 5.4 x10^3/uL (4.8-10.8)
[2023-11-29 06:44] LABS: POTASSIUM 3.9 mmol/L (3.5-4.5)
[2023-11-29] MEDS: ASCORBIC ACID 500 MG TABLET PO SCH (08:31)
[2023-11-29] MEDS: MULTIVITAMIN W/MINERALS TABLET PO SCH (08:31)
[2023-11-29] MEDS: EXEMESTANE 25 MG PO SCH (08:31)
[2023-11-29] MEDS: CHOLECALCIFEROL 5,000 UNIT CAPSULE PO SCH (08:31)
[2023-11-29] MEDS: polyethylene glycoL 3350 17 GM PACKET PO SCH (08:32)
--- NOTE | 2023-11-29 11:25 | DISCHARGE SUMMARY ---
Discharge Summary Admit Date: 11/27/23 Discharge Date: 11/29/23 Discharging Provider: MAURA Jones Primary Care Provider: Letitia Garcia Code Status: Attempt Resuscitation Condition at Discharge: Stable Discharge Disposition: 01 Home, Self Care - DIAGNOSES Admission Diagnoses: 1. Pneumonia 2. Acute respiratory failure Discharge Diagnoses with Status of Each Condition: 1. Acute hypoxemic respiratory failure, stable 2. Pneumonia, resolving 3. 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 Breast cancer, stable - HPI History of Present Illness: Mrs. Amato is a 78-year-old female with a history of NEC lung cancer, right lobectomy, undifferentiated pleomorphic sarcoma, and breast cancer. She is on hormone replacement therapy and a 4 week chemo regimen with gemcitabin and vinorelbine. Patient presented to the ED on 11/26 for evaluation of worsening shortness of breath. She explained due her lung cancer and copd, she has shortness of breath at baseline which had remained stable for the past several years. She does not use oxygen at home and reports her baseline O2 sats are in the low 90's per her fitbit. She was recently diagnosed with Covid 6 weeks ago and treated with Paxlovid. She was recovering well until about 2 weeks ago when she started to experience worsening exertional dyspnea. This progressed until 2 days prior to her presentation when she noted a drop in her oxygen saturation at home. She denied any cough, fever, or chest pain. She has noticed increase bilateral lower extremity edema over the past few weeks. She does not have a longstanding cardiac history. Workup demonstrated bilateral lower lobe infiltrates and right lobe opacity concerning for pneumonia. She was hypoxic on room air inthe low 80's and was p laced on nasal canula oxygen. WBC was within normal limits. She was on supplemental oxygen via nasal canula and was admitted for treatment of pneumonia with empiric antibiotics and supplemental oxygen. - CONSULTS | PROCEDURES Procedures: O2 desat study: "Patient was hypoxic at rest, with room air O2 sats of 88%. On 2 lpm nasal cannula at rest, her O2 sats were 92%. With ambulation, on 2 lpm nasal cannula, her O2 sats were 85%, 3 lpm were 86%, 4 lpm were 88%, and finally on 5 lpm, her O2 sats improved to 90%. I am oderering home O2, 2 lpm at rest nasal cannula, and 5 lpm with exertion to treat her congestive heart failure, lung cancer, pneumonia, and resulting hypoxemia. I am also ordering portable oxygen to allow patient some mobility." - HOSPITAL COURSE Hospital Course: Her pneumonia has been treated with ceftriaxone and azithromycin consistent with guidelines for community aquired pneumonia. MRSA swab and viral swab were all negative. She reports improvement in symptoms and is comfortable at rest. She has persistently required O2 at 2 lpm with 02 sats in the low 90's. She continues to desat with exertion. She has a complex cancer hx with a previous NEC in her right lung with partial 2/3 lobectomy that is currently in remission. 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 She has 3 nodules in her left lung and one in her right adjacent to the mediastinum due to the [employer] [facility] and is currently being treated for this with chemo at [facility]. CT of her chest found a new 11 mm nodule in her left upper lobe with re-imaging recommended in 3 months per the radiologist and this should be followed up on through oncology. 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 This should be resumed upon discharge. The alterations in her thoracic anatomy, neoplastic disease of the lung place, and chemo place her at risk for pulmonary infections. She does not have a POLST and was reluctant to address this during her admission. A realistic discussion of her prognosis with her oncology team and advanced planning should be completed. She was evaluated for a possible co-existing HF based on subjective reports of increased FONSECA, orthopnea, and and gradual decrease in RA 02 sats over the past [address] findings of a dilated pulmonary artery with pedal edema. BNP was mildy elevated at 171. ECHO showed normal LV function with an EF of 55%-60% and evidence of right sided heart failure with elevated right atrial pressure at 64 mmHg, mild RV systolic dysfunction, and dilated inferior vena cava suggestive of elevated CVP. Her pedal edema improved with leg elevation. It is likely that HF is contributing to her hypoxia. She also reports 2 incidents of tachycardia lasting 20-45 minutes in the past 2 years which I suspect may be paroxysmal a- fib consistent which can be caused by pulmonary hypertension and right HF. She was in sinus rhythm during her admission. She will be discharged on low dose furosemide at 20 mg PO daily and should have close PCP follow-up for electrolyte monitoring and cardiology referral HF and possible paroxysmal a-fib. Her O2 desat study indicated she needs home O2, 2 lpm at rest and 5 lpm with exertion. Home O2 was arranged prior to discharge. She may have decreased O2 needs as pneumonia resolves and with HF management, but it is likely she will need some level of O2 indefinitely. - ALLERGIES Allergies/Adverse Reactions: Allergies Allergy/AdvReac Type Severity Reaction Status Date / Time ibuprofen Allergy Edema Verified 11/27/23 13:35 lactose AdvReac Cramps Verified 11/28/23 12:53 - MEDICATIONS Home Medications: Ambulatory Orders Medication Instructions Recorded Confirmed Magnesium 25 mg PO BID 03/19/18 11/28/23 Calcium Carbonate [Calcium] 2 tab PO UD 10/01/23 11/28/23 Exemestane [Aromasin] 25 mg PO DAILY 10/01/23 11/28/23 diphenhydrAMINE [Benadryl] 25 mg PO PRN PRN 10/01/23 11/28/23 Ascorbic Acid/Multivit-Min [Eql 1,000 mg PO DAILY 11/28/23 11/28/23 Vitamin C 1000MG Fizzy Pkt] Carboxymethylcellulose Sodium 1 each OP DAILY PRN 11/28/23 11/28/23 [Refresh Plus] Cholecalciferol [Vitamin D3] 5,000 unit PO DAILY 11/28/23 11/28/23 Hydromorphone HCl 2 mg PO Q4HR PRN 11/28/23 11/28/23 oxyCODONE [Roxicodone] 5 - 10 mg PO Q6HR PRN 11/28/23 11/28/23 Amoxicillin/Potassium Clav 1 each PO TID 2 Days #6 ea 11/29/23 [Augmentin Xr 1,000-62.5 Tab] - PHYSICAL EXAM AT DISCHARGE General Appearance: positive: No acute distress, Alert, Other (78 y/o female, conversant and pleasant, mildy dyspneic with conversation) Eyes Bilateral: positive: Normal inspection Neck: positive: Nml inspection, No JVD Respiratory: positive: Chest non-tender, Rales (Diffuse right lung, mild inspiratory rales left base), Other (Diminished lung sounds right lung, all kim). negative: No respiratory distress, Breath sounds nml, Wheezes, Rhonchi Cardiovascular: positive: Regular rate & rhythm, No murmur, No gallop, Other (Physiologic S2 split) Peripheral Pulses: positive: 2+ Abdomen: positive: Non-tender, No organomegaly, Nml bowel sounds, No distention Back: positive: Nml inspection Skin: positive: Color nml, No rash, Warm, Dry Extremities: positive: Non-tender, Nml appearance, Pedal edema (Trace pedal edema) Neurologic/Psychiatric: positive: Oriented x3, CN's nml (2-12), Motor nml, Sensation nml, Mood/affect nml - LABS Result Diagrams: 11/29/23 06:10 11/29/23 06:10 - DIAGNOSTIC IMAGING Diagnostic Imaging Results: Final report reviewed Diagnostic Imaging Results Comments: ECHO: 1) LVF normal, EF 55-60% 2) RV normal size 3) RV systolic function mildly impaired 4) abnormal right heart pressure 5) RSVP at rest is 64 mmHg 6) Inferior vena cava is dilated and suggest elevated CVP CT chest: 1) No PE. 2) Redemonstration of postsurgical changes with right lobectomy. Pleural thickening and scarring is noted within the right ori- thorax. Scarring vs opacity within right lung, correlate clinically. 3) Diffuse centrilobular septal thickening and mild groundglass is noted concerning for edema. Small bilateral pleural effusions with adjacent atelectasis vs consolidation. 4) New left upper lobe nodule measuring 11 mm. F/u with CT/PET in 3 mo. 5) Dilated main pulmonary artery, suggestive of pulmonary HTN. - SEPSIS Current Stage of Sepsis: Ruled out - QUALITY (Female Hip Fx Only) Was patient sent home on osteoporosis medication?: No - FOLLOW UP Follow Up: Letitia Garcia, PCP ([phone]), with referral for cardiology. Follow-up with oncology at [facility].
--- NOTE | 2023-11-29 15:16 | DISCHARGE SUMMARY ---
Discharge Summary Admit Date: 11/27/23 Discharge Date: 11/29/23 Discharging Provider: MAURA Jones Condition at Discharge: Stable Discharge Disposition: 01 Home, Self Care - ALLERGIES Allergies/Adverse Reactions: Allergies Allergy/AdvReac Type Severity Reaction Status Date / Time ibuprofen Allergy Edema Verified 11/27/23 13:35 lactose AdvReac Cramps Verified 11/28/23 12:53 - MEDICATIONS Home Medications: Ambulatory Orders Medication Instructions Recorded Confirmed Magnesium 25 mg PO BID 03/19/18 11/28/23 Calcium Carbonate [Calcium] 2 tab PO UD 10/01/23 11/28/23 Exemestane [Aromasin] 25 mg PO DAILY 10/01/23 11/28/23 diphenhydrAMINE [Benadryl] 25 mg PO PRN PRN 10/01/23 11/28/23 Ascorbic Acid/Multivit-Min [Eql 1,000 mg PO DAILY 11/28/23 11/28/23 Vitamin C 1000MG Fizzy Pkt] Carboxymethylcellulose Sodium 1 each OP DAILY PRN 11/28/23 11/28/23 [Refresh Plus] Cholecalciferol [Vitamin D3] 5,000 unit PO DAILY 11/28/23 11/28/23 Hydromorphone HCl 2 mg PO Q4HR PRN 11/28/23 11/28/23 oxyCODONE [Roxicodone] 5 - 10 mg PO Q6HR PRN 11/28/23 11/28/23 - LABS Result Diagrams: 11/29/23 06:10 11/29/23 06:10 - SEPSIS Current Stage of Sepsis: Ruled out
--- NOTE | 2023-11-29 15:20 | Discharge Plan ---
Discharge Plan Problem Reviewed?: Yes Diet: Regular Activity Restrictions: Activity as Tolerated No Smoking: If you smoke, Please STOP! Call for help. Disposition: 01 Home, Self Care Condition: Stable Prescriptions: Amoxicillin/Potassium Clav [Augmentin Xr 1,000-62.5 Tab] 1 each PO TID 2 Days #6 ea Instruction Topics: Pneumonia Health Concerns: You presented to the ED with shortness of breath and required oxygen. We found you to have pneumonia and you were treated with antibiotics. Plan of Treatment: For your pneumonia, you were treated with IV antibiotics and oxygen during your admission. You have improved but remain short of breath with walking and need supplemental oxygen to maintain a normal oxygen level. You will be discharged with home oxygen. You will continue your antibiotic, augmentin, for two more days at home in pill form. It is important that you complete the full course to adequately treat the pneumonia. You have nondifferentiated pleomorphic sarcoma tumors in your lungs for which you are receiving chemo at [facility]. The CT of your chest found a new nodule measuring 11 mm in your left upper lobe. It is recommended that you follow-up with your oncology team. The radiologist recommends that you have follow-up imaging by CT or PET in 3 months. You have multiple cancers and need to have a conversation with your team about what to expect with your treatment and work on completing and advanced care plan and POLST form. We evaluated you for underlying HF. You report increasing shortness of breath over the past 3 months, shortness of breath when lying flat that is relieved upon sitting up, and swelling in your legs and feet. You have also reported 2 episodes of a rapid heart rate. The partial right lobectomy and cancers in your lung place you at increased risk of pulmonary hypertension and right heart failure. The CT image of your chest shows that you probably have pulmonary hypertension and the ECHO found mild right sided HF. This is likely contributing to your shortness of breath. You will be sent home on a low dose diuretic and will need to follow-up within 1-2 weeks with your PCP, Letitia Garcia, to monitor your electrolytes and for a referral to cardiology for evaluation of HF and possible atrial fibrillation. Care Goals: 1) Treat pneumonia 2) Maintain you oxygen levels above 92% Follow-up with: Letitia Garcia MD [Primary Care Provider] -
[2023-11-29 15:46] VITALS: BP 139/67; O2SAT 94
[2023-11-30] MEDS ORDERED: PANTOPRAZOLE 40 MG TABLET PO SCH (07:00)
== END 2023-11-29 17:22 | disposition home or self-care (01) | DRG 193 ==
LOC: ED 13:03 → MS2 20:12 → OBSVTOIN 11-28 11:23
PROVIDERS: ADMIT Hospitalist; ATTEND Nurse Practitioner Acute Care
DX: J18.9 Pneumonia, unspecified organism (principal); J96.01 Acute respiratory failure with hypoxia; C34.92 Malignant neoplasm of unspecified part of left bronchus or lung; R00.0 Tachycardia, unspecified; I49.1 Atrial premature depolarization; C34.11 Malignant neoplasm of upper lobe, right bronchus or lung; J44.0 Chronic obstructive pulmonary disease with (acute) lower respiratory infection; C50.911 Malignant neoplasm of unspecified site of right female breast; C44.509 Unspecified malignant neoplasm of skin of other part of trunk; C44.702 Unspecified malignant neoplasm of skin of right lower limb, including hip; Z20.818 Contact with and (suspected) exposure to other bacterial communicable diseases; Z20.822 Contact with and (suspected) exposure to COVID-19; Z20.828 Contact with and (suspected) exposure to other viral communicable diseases; I27.20 Pulmonary hypertension, unspecified; I50.810 Right heart failure, unspecified; Z79.890 Hormone replacement therapy; Z79.899 Other long term (current) drug therapy
CPT/HCPCS: 36415; 71045; 71275; 80048; 80053; 83690; 83880; 84484; 85025; 87040; 87633; 93005; 93307; 94761; 96365; 96366; 96367; 96375; 99285; A9270; G0378; J1170; J3370; Q9967

== ENCOUNTER 2024-06-28 15:52 | Inpatient (IN) ==
--- OUTSIDE RECORDS SUMMARY | 2024-06-28 16:04 | EXTERNAL MEDICAL SUMMARY RPT | Continuity of Care Document ---
Author Organization [facility] Address [address] [place] [id number] Phone Problems date description facility 2024-06-14 15:13 Neoplasm related pain (acute[facility] ( [facility] 2024-06-17 10:42 Neoplasm related [facility] (acute[facility] ( [facility] 2024-06-17 10:42 Low back pain, unspecified Critical access hospital Social History date description facility
--- NOTE | 2024-06-28 17:03 | XRAY Report ---
PROCEDURE: XR Chest 1V INDICATIONS: sob, cxr TECHNIQUE: One view of the chest was acquired. COMPARISON: CT chest dated 11/27/2023 and radiograph dated 11/27/2023. FINDINGS: Surgical changes and devices: Tunneled right port device is unchanged in positioning. Prior cholecys tectomy. Lungs and pleura: Persistent small right pleural effusion. Streaky opacities of the right hemithorax similar to prior evaluation and likely sequela from prior partial lobectomy. No pneumothorax. Interv al increase in size of pulmonary nodules seen in the left hemithorax. Mediastinum: Mediastinal contours appear normal. Heart size is normal. Bones and chest wall: No suspicious bony lesions. Overlying soft tissues appear unremarkable. IMPRESSION: Persistent small right pleural effusion. Streaky right lung opacities likely representing combination of atelectasis and scarring from prior partial lobectomy. Concurrent infectious process not excluded if clinically appropriate. Interval increase in size of left pulmonary nodules consistent with metastatic disease. Reviewed by: José Luis Fields MD on 06/28/2024 5:01 PM PDT Approved by: José Luis Fields MD on 06/28/2024 5:01 PM PDT Station ID: [id number]
[2024-06-28 17:12] LABS: BASOPHILS % (AUTO) 0.4 %; EOSINOPHILS % (AUTO) 0.1 %; HCT - HEMATOCRIT 36.3 % (37.0-47.0); HGB - HEMOGLOBIN 11.9 g/dL (12.0-16.0); LYMPHOCYTES # (AUTO) 0.2 10^3/uL (1.5-3.5); MEAN CORPUSCULAR HEMOGLOBIN 31.2 pg (27.0-31.0); MEAN CORPUSCULAR HGB CONC 32.8 g/dL (32.0-36.0); MEAN CORPUSCULAR VOLUME 95.3 fL (81.0-99.0); MEAN PLATELET VOLUME 10.5 fL (7.9-10.8); MONOCYTES # (AUTO) 0.2 10^3/uL (0.0-1.0); MONOCYTES % (AUTO) 1.9 %; NEUTROPHILS # (AUTO) 8.1 10^3/uL (1.5-6.6); NEUTROPHILS % (AUTO) 95.2 %; PLT - PLATELET COUNT 120 10^3/uL (130-450); RED BLOOD COUNT 3.81 10^6/uL (4.20-5.40); RED CELL DISTRIBUTION WIDTH 14.5 % (12.0-15.0); WHITE BLOOD COUNT 8.5 x10^3/uL (4.8-10.8)
[2024-06-28 17:33] LABS: ALBUMIN 3.7 g/dL (3.2-5.5); ALBUMIN/GLOBULIN RATIO 1.5 (1.0-2.2); BILIRUBIN,TOTAL 1.6 mg/dL (0.2-1.0); CALCIUM 9.4 mg/dL (8.5-10.3); POTASSIUM 4.1 mmol/L (3.5-4.5); TOTAL PROTEIN 6.1 g/dL (6.4-8.9)
[2024-06-28 17:44] LABS: INR 1.4 (0.8-1.2); PT - PROTHROMBIN TIME 15.8 secs (9.9-12.6)
[2024-06-28 18:11] LABS: B. PARAPERTUSSIS- RESP PCR PAN NOT DETECTED; B. PERTUSSIS- RESP PCR PANEL NOT DETECTED; C. PNEUMONIAE- RESP PCR PANEL NOT DETECTED; CORONAVIRUS 229E-RESP PCR NOT DETECTED; CORONAVIRUS HKU1-RESP PCR NOT DETECTED; CORONAVIRUS NL63-RESP PCR NOT DETECTED; CORONAVIRUS OC43-RESP PCR NOT DETECTED; HUMAN METAPNEUMOVIRUS NOT DETECTED; INFLUENZA A- RESP PCR PANEL NOT DETECTED; INFLUENZA B - RESP PCR PANEL NOT DETECTED; M. PNEUMONIAE- RESP PCR PANEL NOT DETECTED; PARAINFLUENZA VIRUS 1 NOT DETECTED; PARAINFLUENZA VIRUS 2 NOT DETECTED; PARAINFLUENZA VIRUS 4 NOT DETECTED; RHINOVIRUS/ENTEROVIRUS NOT DETECTED; RSV- RESP PCR PANEL NOT DETECTED; SARS-CoV-2 -RESP PCR PANEL NOT DETECTED
[2024-06-28] MEDS ORDERED: iohexoL-300 100 ML VIAL ONE (18:42)
[2024-06-28 18:49] LABS: BILIRUBIN,URINE NEGATIVE (NEGATIVE); GLUCOSE, URINE (UA) NEGATIVE (NEGATIVE); KETONES,URINE (UA) NEGATIVE (NEGATIVE); LEUKOCYTE ESTERASE, URINE MODERATE (NEGATIVE); NITRITE,URINE NEGATIVE (NEGATIVE); OCCULT BLOOD,URINE TRACE-INTA (NEGATIVE); PROTEIN,URINE NEGATIVE (NEGATIVE); UROBILINOGEN,URINE 0.2 (NORMAL) E.U./dL (NORMAL)
[2024-06-28 18:57] LABS: CLARITY,URINE HAZY (CLEAR)
[2024-06-28 19:11] LABS: RBC,URINE 0-5 /HPF (0-5); WBC,URINE >25 /HPF (0-5)
[2024-06-28 19:12] LABS: BACTERIA,URINE Many /HPF (None Seen); SQUAMOUS EPITHELIAL CELL,UR MOD Squamous (<= Few)
--- NOTE | 2024-06-28 20:36 | ED Physician Documentation ---
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 Presents to the ER with increased shortness of breath and fevers. She notes she took Tylenol shortly prior to arrival but had a t emperature to 101 at home. She is currently undergoing chemotherapy treatment with her last dose yesterday. She follows at [facility] for this. She notes she has had some congestion and feelings of increased shortness of breath. She has some swelling in her legs but no significant increase in her weight. No nausea or vomiting no urinary symptoms no diarrhea she notes her infusions rendon ve been going well otherwise. Meds/Allgy Home Medications Ambulatory Orders Medication Instructions Recorded Confirmed magnesium 250 mg tablet 25 mg PO BID 03/19/18 06/28/24 calcium carbonate 2 tab PO UD 10/01/23 06/28/24 diphenhydramine HCl 25 mg capsule 25 mg PO PRN PRN Insomnia 10/01/23 06/28/24 (Banophen) exemestane 25 mg tablet (Aromasin) 25 mg PO DAILY 10/01/23 06/28/24 ascorbic acid 1,000 1,000 mg PO DAILY 11/28/23 06/28/24 he-awxbhypwtgpq-rfjzronm powder effervescent pack (Vitamin C Powder Blend) carboxymethylcellulose sodium 0.5 1 ea ophthalmic (eye) DAILY PRN 11/28/23 06/28/24 % eye drops in a dropperette Dry Eye (Refresh Plus) cholecalciferol (vitamin D3) 125 5,000 unit PO DAILY 11/28/23 06/28/24 mcg (5,000 unit) capsule hydromorphone 2 mg tablet 2 mg PO Q4HR PRN Pain 5-7 11/28/23 06/28/24 oxycodone 5 mg tablet 5 - 10 mg PO Q6HR PRN Severe Pain 11/28/23 06/28/24 (Level 7-10) amoxicillin-potassium clavulanate 1 ea PO TID 2 days #6 ea 11/29/23 1,000 mg-62.5 mg tablet,ext.rel 12hr (Augmentin XR) furosemide 20 mg tablet 20 mg PO DAILY #7 tabs 11/29/23 06/28/24 oxycodone 5 mg tablet 5 mg PO QID PRN pain #60 tabs 06/14/24 furosemide 40 mg tablet mg 06/28/24 ondansetron HCl 8 mg tablet mg 06/28/24 prochlorperazine maleate 10 mg mg 06/28/24 tablet Allergies Allergies Allergy/AdvReac Type Severity Reaction Status Date / Time ibuprofen Allergy Edema Verified 06/28/24 15:58 lactose AdvReac Cramps Verified 06/28/24 15:58 crab shells Allergy Mild Hives Uncoded 06/28/24 15:58 PFSH Active Problems All Active Problems (Updated 06/28/24 @ 21:57 by Felicitas Caballero PA-C) Immunocompromised (Acute) UTI (urinary tract infection) (Acute) Breath shortness (Acute) Pneumonia (Acute) Cancer related pain (Acute) Back pain (Acute) Breast cancer (Acute) Undifferentiated pleomorphic sarcoma (Acute) Acute hypoxemic respiratory failure (Acute) Acute respiratory failure (Acute) Pneumonia (Acute) COVID-19 (Acute) Fever (Acute) Superficial phlebitis (Acute) Status post chemotherapy (Acute) Pleurisy (Acute) Shingles (Acute) Cancer of right lung (Acute) Left leg cellulitis (Acute) Neutropenic (Acute) Cellulitis (Acute) Maisonneuve fracture of left fibula (Acute) Mild chronic obstructive pulmonary disease (Acute) Chest pain (Acute) Social History Social History Smoking Status: Never smoker If you are a former smoker, when did you quit? (Date/Year): 1990 Number of Years Smoked: 20 Do you dip or chew tobacco?: No Patient requests smoking cessation consult: No Initiate information on smoking cessation: No Relationship: Spouse Level: Independent Do you feel safe in your home environment?: Yes Suffered physical, verbal, emotional, or financial abuse?: No History of Abuse: No POLST Patient has POLST: No Exam Exam Vital Signs: Vital Signs x48h Temp Pulse Resp BP Pulse Ox O2 Flow Rate 06/28/24 20:43 84 20 123/65 97 2 06/28/24 19:00 103 H 135/74 H 96 3 06/28/24 17:07 107 H 20 140/65 H 95 06/28/24 15:55 36.7 C 120 H 24 137/76 H 94 2 Constitutional Patient appears short of breath on arrival HENMT normocephalic, head/scalp atraumatic, hearing grossly normal bilaterally and oral mucous membranes normal Eyes PERRL, EOMs intact bilaterally and conjunctivae normal Neck/C-Spine visual inspection normal Cardiovascular normal heart rate noted, regular rhythm noted and no gallop Gastrointestinal abdomen normal to inspection, abdomen soft to palpation and nontender to palpation 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 II-XII intact Psychiatry Mental Status Exam documented in the separate MSE Results Vitals Vitals: Vital Signs - 24 hr 06/28/24 15:55 06/28/24 17:07 06/28/24 19:00 Temperature 36.7 C Temperature Source Oral Pulse Rate 120 H 107 H 103 H Respiratory Rate 24 20 Blood Pressure 137/76 H 140/65 H 135/74 H O2 Saturation 94 95 96 O2 Source Nasal cannula Room air Nasal cannula If not protocol: Oxygen Flow, liters/minute 2 3 Pain Intensity 3 6 3 06/28/24 20:43 Temperature Temperature Source Pulse Rate 84 Respiratory Rate 20 Blood Pressure 123/65 O2 Saturation 97 O2 Source Nasal cannula If not protocol: Oxygen Flow, liters/minute 2 Pain Intensity Oxygen O2 Source Nasal cannula Labs Labs: Laboratory Tests 06/28/24 06/28/24 06/28/24 17:03 17:11 18:41 WBC 8.5 RBC 3.81 L Hgb 11.9 L Hct 36.3 L MCV 95.3 MCH 31.2 H MCHC 32.8 RDW 14.5 Plt Count 120 L MPV 10.5 Neut # (Auto) 8.1 H Lymph # (Auto) 0.2 L Kidder # (Auto) 0.2 Eos # (Auto) 0.0 Baso # (Auto) 0.0 Absolute Nucleated RBC 0.00 Nucleated RBC % 0.0 PT 15.8 H INR 1.4 H Sodium 136 Potassium 4.1 Chloride 103 Carbon Dioxide 24 Anion Gap 9.0 BUN 23 H Creatinine 1.0 Estimated GFR (MDRD) 53 L Glucose 118 H Lactic Acid Calcium 9.4 Total Bilirubin 1.6 H AST 17 ALT 16 Alkaline Phosphatase 68 Troponin I High Sens 8.0 Total Protein 6.1 L Albumin 3.7 Globulin 2.4 Albumin/Globulin Ratio 1.5 Urine Color DARK YELLOW Urine Clarity HAZY Urine pH 6.0 Ur Specific [place] 1.025 Urine Protein NEGATIVE Urine Glucose (UA) NEGATIVE Urine Ketones NEGATIVE Urine Occult Blood TRACE-INTA Urine Nitrite NEGATIVE Urine Bilirubin NEGATIVE Urine Urobilinogen 0.2 (NORMAL) Ur Leukocyte Esterase MODERATE H Urine RBC 0-5 Urine WBC >25 H Ur Squamous Epith Cells MOD Squamous H Urine Bacteria Many H Ur Microscopic Review INDICATED Urine Culture Comments NOT INDICATED Nasal Adenovirus (PCR) NOT DETECTED Nasal B. parapertussis DNA (PCR) NOT DETECTED Nasal Coronavir 229E PCR NOT DETECTED Nasal Coronavir HKU1 PCR NOT DETECTED Nasal Coronavir NL63 PCR NOT DETECTED Nasal Coronavir OC43 PCR NOT DETECTED Nasal Enterovir/Rhinovir PCR NOT DETECTED Nasal Influenza B PCR NOT DETECTED Nasal Influenza A PCR NOT DETECTED Nasal Parainfluen 1 PCR NOT DETECTED Nasal Parainfluen 2 PCR NOT DETECTED Nasal Parainfluen 3 PCR NOT DETECTED Nasal Parainfluen 4 PCR NOT DETECTED Nasal RSV (PCR) NOT DETECTED Nasal B.pertussis DNA PCR NOT DETECTED Nasal C.pneumoniae (PCR) NOT DETECTED Demetrio Human Metapneumo PCR NOT DETECTED Nasal M.pneumoniae (PCR) NOT DETECTED Nasal SARS-CoV-2 (PCR) NOT DETECTED 06/28/24 18:53 WBC RBC Hgb Hct MCV MCH MCHC RDW Plt Count MPV Neut # (Auto) Lymph # (Auto) Kidder # (Auto) Eos # (Auto) Baso # (Auto) Absolute Nucleated RBC Nucleated RBC % PT INR Sodium Potassium Chloride Carbon Dioxide Anion Gap BUN Creatinine Estimated GFR (MDRD) Glucose Lactic Acid 1.0 Calcium Total Bilirubin AST ALT Alkaline Phosphatase Troponin I High Sens Total Protein Albumin Globulin Albumin/Globulin Ratio Urine Color Urine Clarity Urine pH Ur Specific [place] Urine Protein Urine Glucose (UA) Urine Ketones Urine Occult Blood Urine Nitrite Urine Bilirubin Urine Urobilinogen Ur Leukocyte Esterase Urine RBC Urine WBC Ur Squamous Epith Cells Urine Bacteria Ur Microscopic Review Urine Culture Comments Nasal Adenovirus (PCR) Nasal B. parapertussis DNA (PCR) Nasal Coronavir 229E PCR Nasal Coronavir HKU1 PCR Nasal Coronavir NL63 PCR Nasal Coronavir OC43 PCR Nasal Enterovir/Rhinovir PCR Nasal Influenza B PCR Nasal Influenza A PCR Nasal Parainfluen 1 PCR Nasal Parainfluen 2 PCR Nasal Parainfluen 3 PCR Nasal Parainfluen 4 PCR Nasal RSV (PCR) Nasal B.pertussis DNA PCR Nasal C.pneumoniae (PCR) Demetrio Human Metapneumo PCR Nasal M.pneumoniae (PCR) Nasal SARS-CoV-2 (PCR) PD Medical Decision Making ED course Complexity details: reviewed old records and reviewed results ED course: Patient is an 79-year-old female presenting to the emergency department febrile short of breath history of meth metastatic breast and lung cancer currently undergoing chemotherapy treatment history of multiple lobectomies in the past presents to the ER with worsening shortness of breath and congestion. Labs here in the emergency department show no leukocytosis her hemoglobin is 11.9 but this is not significantly abnormal from previous labs slight increase in neutrophil count could be caused by viral URI symptoms. CMP is unremarkable UA shows greater than 25 white blood cells. Pending CT PE given patient significantly tachycardic on arrival her EKG does show some ectopic atrial tachycardia but patient has normal troponin. Chest X-ray: Persistent small right pleural effusion. Streaky right lung opacities likely representing combination of atelectasis and scarring from prior partial lobectomy. Concurrent infectious process not excluded if clinically appropriate. Interval increase in size of left pulmonary nodules consistent with metastatic disease. CT/PE: No pulmonary embolus.New prevascular mass measuring 5.4 cm. New and growing left-sided pulmonary nodules. Findings are concerning for recurrent malignancy. R middle lobectomy and right upper lobectomy. Patient was on 4 L nasal cannula on arrival secondary to hypoxia she here in the ED was able to downtrend to 2 L nasal cannula at rest but when she moves she requires increased oxygenation requirements. She did not require any breathing treatments. She was givena dose of ceftriaxone for her UTI findings on examination. Lactic acid returned within normal range. Discussed case with Dr. Hughes Who is agreeable with admission for concerns for hypoxia and UTI with possible fever history of immunocompromised and increased shortness of breath with possible pneumonia seen on chest x-ray. Vancomycin added to patient's treatment. Discharge Plan Discharge Patient Disposition: 66 [facility] DC/Xfer Condition: Stable Clinical Impression: Acute hypoxemic respiratory failure, Pneumonia, Breath shortness, UTI (urinary tract infection), Immunocompromised Prescriptions: No Action magnesium 250 MG tablet 25 mg PO BID Patient Comments: instill 1 drop into left eye twice a day for 7 days calcium carbonate 600 MG tablet 2 tab PO UD Rx Instructions: 2 tablets w/ every meal. exemestane [Aromasin] 25 MG tablet 25 mg PO DAILY Rx Instructions: Says she may have forgotten to take these recently. diphenhydramine HCl [Banophen] 25 MG capsule 25 mg PO PRN PRN (Reason: Insomnia) Rx Instructions: says that she has been taking Oxycodone/hydromorphone more recently and hasn't been taking as often for insomnia. cholecalciferol (vitamin D3) 5,000 UNIT capsule 5,000 unit PO DAILY hydromorphone 2 MG tablet 2 mg PO Q4HR PRN (Reason: Pain 5-7) Rx Instructions: Patient states med is taken every 4 hrs PRN, 90 tablets picked up 11/15/23 oxycodone 5 MG tablet 5 - 10 mg PO Q6HR PRN (Reason: Severe Pain (Level 7-10)) Rx Instructions: Patient states she has been trying to take at PM, avoiding use during day and using Acetaminophen instead. 60 tablets picked up 11/09/23 carboxymethylcellulose sodium [Refresh Plus] 1 EACH dropperette 1 ea ophthalmic (eye) DAILY PRN (Reason: Dry Eye) Vitamin C Powder Blend 1,000 MG powder effervescent in packet 1,000 mg PO DAILY amoxicillin-pot clavulanate [Augmentin XR] 1 EACH tablet extended release 12 hr 1 ea PO TID 2 Days Qty: 6 0RF Rx Instructions: Start 11/30/2023 for 2 days furosemide 20 MG tablet 20 mg PO DAILY Qty: 7 0RF oxycodone 5 mg tablet 5 mg PO QID PRN (Reason: pain) Qty: 60 0RF furosemide 40 mg tablet ondansetron HCl 8 mg tablet prochlorperazine maleate 10 mg tablet Print Language: Burundian
[2024-06-28] MEDS: iohexoL-300 100 ML VIAL IVP ONE (21:23)
--- NOTE | 2024-06-28 21:39 | CT Report ---
PROCEDURE: CT Angio Chest INDICATIONS: concern for pe, hx of CA and hypoxia and tachycard CONTRAST: 100 ML OMNI 300 TECHNIQUE: After the administration of intravenous contrast, 2 mm axial images were acquired from the pulmonary apices to the posterior costophrenic angles during the arterial phase. In addition, 1 mm lung kernel and 5 mm soft tissue kernel reconstructions were performed. 3-dimensional coronal oblique maximum int ensity projection (MIP) reformats, 8 mm axial MIP, and 5 mm coronal and sagittal MPR reformats were t hen performed through the thorax. For radiation dose reduction, the following was used: automated exp osure control, adjustment of mA and/or kV according to patient size. COMPARISON: 11/27/2023 FINDINGS: Image quality: Excellent. Large vessels: No filling defects within the opacified pulmonary arteries, accounting for motion and contrast timing. No evidence of acute aortic syndrome or aortic aneurysm. Lungs and pleura: Small, loculated right-sided pleural effusion. Right upper lobectomy and right midd le lobectomy. Growing left-sided pulmonary nodules. Multiple solid Largest examples include: -2.1 cm posterior left upper lobe mass (series 6, image 110), new from prior. -1.6 cm subpleural left upper lobe nodule, previously 1.1 cm (series 6, image 92). Mediastinum: New prevascular mass measuring 4.7 x 5.4 cm (series 4, image 46). Cardiomegaly. Dilated main pulmonary artery, consistent with pulmonary hypertension. Right chest wall port tip terminates i n the low SVC. Chest wall and lower neck: Thyroid is unremarkable. No axillary or supraclavicular adenopathy by size . Bones: No aggressive osseous abnormality. Upper Abdomen: Unremarkable. IMPRESSION: No pulmonary embolus. New prevascular mass measuring 5.4 cm. New and growing left-sided pulmonary nodules. Findings are con cerning for recurrent malignancy. Right middle lobectomy and right upper lobectomy. Reviewed by: Edin Lubin MD on 06/28/2024 9:38 PM PDT Approved by: Edin Lubin MD on 06/28/2024 9:38 PM PDT Station ID: [id number]
[2024-06-28] MEDS ORDERED: cefTRIAXone 1 GM VIAL ONE (21:55)
[2024-06-28] MEDS: cefTRIAXone 1 GM in SODIUM CHLORIDE 0.9% MINIBAG 100 ML IV STA (22:02)
--- OUTSIDE RECORDS SUMMARY | 2024-06-28 22:16 | EXTERNAL MEDICAL SUMMARY RPT | Continuity of Care Document ---
Author Organization [facility] Address [address] [place] [id number] Phone Problems date description facility 2024-06-14 15:13 Neoplasm related pain (acute) ( chronic) [facility] 2024-06-17 10:42 Neoplasm related pain (acute) ( chronic) [facility] 2024-06-17 10:42 Low back pain, unspecified [facility] 2024-06-28 21:57 Pneumonia, unspecified organism [facility] Results/Labs test date facility value unit notes Result panel 1 NUCLEATED RED BLOOD CELLS AUTO 2024-06-28 17:03 [facility] 0.0 /100wbc (missing) BASOPHILS # (AUTO) 2024-06-28 17:03 [facility] 0.0 10 3/ul (missing) EOSINOPHILS # (AUTO) 2024-06-28 17:03 [facility] 0.0 10 3/ul (missing) NRBC ABSOLUTE COUNT (AUTO) 2024-06-28 17:03 [facility] 0.00 x10 3/ul (missing) MONOCYTES # (AUTO) 2024-06-28 17:03 [facility] 0.2 10 3/ul (missing) LYMPHOCYTES # (AUTO) 2024-06-28 17:03 [facility] 0.2 10 3/ul (missing) CREATININE 2024-06-28 17:03 [facility] 1.0 mg/dl As of September 2022 testing method has changed, this may include reference ranges. INR 2024-06-28 17:03 [facility] 1.4 (missing) Oral Anticoagulant Indication INR range Venous Thrombosis, P.E. 2.0 - 3.0 Mechanical Valve 2.5 - 3.5 ALBUMIN/GLOBULIN RATIO 2024-06-28 17:03 [facility] 1.5 (missing) (missing) BILIRUBIN,TOTAL 2024-06-28 17:03 [facility] 1.6 mg/dl As of September 2022 testing method has changed, this may include reference ranges. MEAN PLATELET VOLUME 2024-06-28 17:03 [facility] 10.5 fl (missing) CHLORIDE 2024-06-28 17:03 [facility] 103 mmol/l As of September 2022 testing method has changed, this may include reference ranges. HGB - HEMOGLOBIN 2024-06-28 17:03 [facility] 11.9 g/dl (missing) GLUCOSE 2024-06-28 17:03 [facility] 118 mg/dl As of September 2022 testing method has changed, this may include reference ranges. PLT - PLATELET COUNT 2024-06-28 17:03 [facility] 120 10 3/ul (missing) SODIUM 2024-06-28 17:03 [facility] 136 mmol/l (missing) RED CELL DISTRIBUTION WIDTH 2024-06-28 17:03 [facility] 14.5 % (missing) PT - PROTHROMBIN TIME 2024-06-28 17:03 [facility] 15.8 secs (missing) ALT ALANINE AMINOTRANSFERASE 2024-06-28 17:03 [facility] 16 iu/l As of September 2022 testing method has changed, this may include reference ranges. AST ASPARTATE AMINOTRANSFERASE 2024-06-28 17:03 [facility] 17 iu/l As of September 2022 testing method has changed, this may include reference ranges. GLOBULIN 2024-06-28 17:03 [facility] 2.4 g/dl (missing) BUN - BLOOD UREA NITROGEN 2024-06-28 17:03 [facility] 23 mg/dl As of September 2022 testing method has changed, this may include reference ranges. CARBON DIOXIDE - CO2 2024-06-28 17:03 [facility] 24 mmol/l As of September 2022 testing method has changed, this may include reference ranges. ALBUMIN 2024-06-28 17:03 [facility] 3.7 g/dl As of September 2022 testing method has changed, this may include reference ranges. RED BLOOD COUNT 2024-06-28 17:03 [facility] 3.81 10 6/ul (missing) MEAN CORPUSCULAR HEMOGLOBIN 2024-06-28 17:03 [facility] 31.2 pg (missing) MEAN CORPUSCULAR HGB CONC 2024-06-28 17:03 [facility] 32.8 g/dl (missing) HCT - HEMATOCRIT 2024-06-28 17: [facility] 36.3 % (missing) POTASSIUM 2024-06-28 17:03 [facility] 4.1 mmol/l As of September 2022 testing method has changed, this may include reference ranges. GFR - MDRD 2024-06-28 17:03 [facility] 53 (missing) Social History date description facility
--- NOTE | 2024-06-28 22:20 | HISTORY & PHYSICAL EXAMINATION ---
Chief Complaint Chief Complaint Chief Complaint: Shortness of breath History of Present Illness History of Present Illness HPI Comment/Other: 79 y old female with PMH Lung cancer on chemo presented to ER due to fever, cough and shortness of breath for 2 days Pt had chemo yesterday On presentation, pt was febrile, tachypnic CTA chest neg for PE In ER, pt was given IV ceftriaxone Pt is admitted due to Acute hypoxic respiratory failure due to pneumonia and UTI Review of Systems Status of ROS: 10 or more systems reviewed and unremarkable except as noted in history and below PFSH Active Problems All Active Problems (Updated 06/28/24 @ 21:57 by Felicitas Caballero PA-C) Immunocompromised (Acute) UTI (urinary tract infection) (Acute) Breath shortness (Acute) Pneumonia (Acute) Cancer related pain (Acute) Back pain (Acute) Breast cancer (Acute) Undifferentiated pleomorphic sarcoma (Acute) Acute hypoxemic respiratory failure (Acute) Acute respiratory failure (Acute) Pneumonia (Acute) COVID-19 (Acute) Fever (Acute) Superficial phlebitis (Acute) Status post chemotherapy (Acute) Pleurisy (Acute) Shingles (Acute) Cancer of right lung (Acute) Left leg cellulitis (Acute) Neutropenic (Acute) Cellulitis (Acute) Maisonneuve fracture of left fibula (Acute) Mild chronic obstructive pulmonary disease (Acute) Chest pain (Acute) Social History Social History Smoking Status: Never smoker If you are a former smoker, when did you quit? (Date/Year): 1990 Number of Years Smoked: 20 Do you dip or chew tobacco?: No Patient requests smoking cessation consult: No Initiate information on smoking cessation: No Relationship: Spouse Level: Independent Do you feel safe in your home environment?: Yes Suffered physical, verbal, emotional, or financial abuse?: No History of Abuse: No POLST Patient has POLST: No Meds/Allgy Home Medications Ambulatory Orders Medication Instructions Recorded Confirmed magnesium 250 mg tablet 25 mg PO BID 03/19/18 06/28/24 calcium carbonate 2 tab PO UD 10/01/23 06/28/24 diphenhydramine HCl 25 mg capsule 25 mg PO PRN PRN Insomnia 10/01/23 06/28/24 (Banophen) exemestane 25 mg tablet (Aromasin) 25 mg PO DAILY 10/01/23 06/28/24 ascorbic acid 1,000 1,000 mg PO DAILY 11/28/23 06/28/24 hf-etxlqhglpevx-lvwlsaqy powder effervescent pack (Vitamin C Powder Blend) carboxymethylcellulose sodium 0.5 1 ea ophthalmic (eye) DAILY PRN 11/28/23 06/28/24 % eye drops in a dropperette Dry Eye (Refresh Plus) cholecalciferol (vitamin D3) 125 5,000 unit PO DAILY 11/28/23 06/28/24 mcg (5,000 unit) capsule hydromorphone 2 mg tablet 2 mg PO Q4HR PRN Pain 5-7 11/28/23 06/28/24 oxycodone 5 mg tablet 5 - 10 mg PO Q6HR PRN Severe Pain 11/28/23 06/28/24 (Level 7-10) amoxicillin-potassium clavulanate 1 ea PO TID 2 days #6 ea 11/29/23 1,000 mg-62.5 mg tablet,ext.rel 12hr (Augmentin XR) furosemide 20 mg tablet 20 mg PO DAILY #7 tabs 11/29/23 06/28/24 oxycodone 5 mg tablet 5 mg PO QID PRN pain #60 tabs 06/14/24 furosemide 40 mg tablet mg 06/28/24 ondansetron HCl 8 mg tablet mg 06/28/24 prochlorperazine maleate 10 mg mg 06/28/24 tablet Allergies Allergies Allergy/AdvReac Type Severity Reaction Status Date / Time ibuprofen Allergy Edema Verified 06/28/24 15:58 lactose AdvReac Cramps Verified 06/28/24 15:58 crab shells Allergy Mild Hives Uncoded 06/28/24 15:58 Exam Exam Vital Signs: Vital Signs x48h Temp Pulse Resp BP Pulse Ox O2 Flow Rate 06/28/24 20:43 84 20 123/65 97 2 06/28/24 19:00 103 H 135/74 H 96 3 06/28/24 17:07 107 H 20 140/65 H 95 06/28/24 15:55 36.7 C 120 H 24 137/76 H 94 2 Constitutional normal general appearance HENMT normocephalic Eyes PERRL Neck/C-Spine trachea midline Respiratory breath sounds equal bilaterally Cardiovascular normal heart rate noted Gastrointestinal abdomen soft to palpation Extremities normal to inspection Neurology no focal motor deficit noted Skin no rash Conclusion/Plan Problem List (1) Pneumonia: Plan A: Acute hypoxic respiratory failure Pneumonia UTI H/O lung cancer on chemo Plan: Admit to med surg with tele Follow cultures Start ceftriaxone and zithromax Duo nebs q4h prn DVT prophylaxic: SCD Full code Pt is admitted as inpatient as more than 2 midnight stay is expected Lab Results 06/28/24 17:03 06/28/24 17:03
[2024-06-28] MEDS ORDERED: SODIUM CHLORIDE FLUSH 0.9% 10 ML SYRINGE IVP PRN (22:41)
[2024-06-28] MEDS ORDERED: IPRATROPIUM/ALBUTEROL 3 ML NEB INH PRN (22:41)
[2024-06-28] MEDS ORDERED: MORPHINE 2 MG/ML CARPUJECT IVP PRN (22:41)
[2024-06-28] MEDS ORDERED: ONDANSETRON 4 MG/2 ML VIAL IVP PRN (22:41)
[2024-06-28] MEDS ORDERED: VANCOMYCIN INJ 1.25 GM in SODIUM CHLORIDE 0.9% 250 ML IV SCH (23:00)
[2024-06-28] MEDS: SODIUM CHLORIDE FLUSH 0.9% 10 ML SYRINGE IVP SCH (23:40)
[2024-06-28] MEDS: SODIUM CHLORIDE 0.9% 1,000 ML IV SCH (23:47)
[2024-06-28] MEDS: VANCOMYCIN INJ 1.75 GM in SODIUM CHLORIDE 0.9% 500 ML IV STA (23:48)
[2024-06-29] MEDS: cefTRIAXone 1 GM in SODIUM CHLORIDE 0.9% MINIBAG 100 ML IV SCH (08:11)
--- NOTE | 2024-06-29 08:54 | PROVIDER PROGRESS NOTE ---
Subjective Subjective Subjective: Patient states she feels better today. She denies fevers, chills. She has a history of multiple cancers, including sarcomas, liver, and lung. She received chemo few days ago. She also sees a data analytics architect, Dr. Brambila at [facility]. He recently diagnosed her with pneumonitis, and she completed a steroid course for that as well. She has been having ongoing shortness of breath, especially with activity. She does have oxygen at home which she is supposed to use as needed, but she has not been using it. She also had a temperature as high as 101 at home, which also prompted her to come in. Current Medications Current Medications Current Medications: Current Medications Generic Name Dose Route Start Last Admin Trade Name Freq PRN Reason Stop Dose Admin Acetaminophen 650 mg 06/28/24 22:41 Acetaminophen 325 Mg Tablet PO Q4HR PRN Pain 1 to 4, or Fever Albuterol/Ipratropium 3 ml 06/28/24 22:41 Ipratropium/Albuterol 3 Ml Neb INH RTQ4H PRN Wheezing Ceftriaxone Sodium 1 gm/ 100 mls @ 200 mls/hr 06/29/24 09:00 06/29/24 08:11 Sodium Chloride IV 200 mls/hr DAILY MELISSA Administration Vancomycin HCl 1 gm/ 500 mls @ 250 mls/hr 06/29/24 23:00 Vancomycin HCl 500 mg/ Sodium IV Chloride Q24H MELISSA Sodium Chloride 1,000 mls @ 100 mls/hr 06/28/24 22:41 06/28/24 23:47 Normal Saline 0.9% IV 100 mls/hr .Q10H MELISSA Administration Azithromycin 500 mg/ Sodium 250 mls @ 250 mls/hr 06/29/24 09:00 Chloride IV DAILY MELISSA Morphine Sulfate 2 mg 06/28/24 22:41 Morphine 2 Mg/Ml Carpuject IVP Q2HR PRN Pain 8 to 10 Ondansetron HCl 4 mg 06/28/24 22:41 Ondansetron 4 Mg/2 Ml Vial IVP Q6HR PRN Nausea / Vomiting Sodium Chloride 10 ml 06/28/24 22:41 Sodium Chloride Flush 0.9% 10 Ml Syringe IVP PRN PRN NEEDED PER PROVIDER ORDERS Sodium Chloride 10 ml 06/29/24 01:00 06/28/24 23:40 Sodium Chloride Flush 0.9% 10 Ml Syringe IVP 10 ml 0100,0900,1700 MELISSA Administration Vancomycin HCl 1 each 06/28/24 21:58 Vancomycin: Pharmacy To Dose [facility] .ONCE PRN PER PHARMACY Objective Vital Signs/Intake & Output Reviewed Vital Signs: Yes Vital Signs: Vital Signs x48h Temp Pulse Resp BP Pulse Ox O2 Flow Rate 06/29/24 06:01 97.9 F 92 18 124/66 98 1 Intake & Output: Intake & Output 06/26/24 06/27/24 06/28/24 06/29/24 23:59 23:59 23:59 23:59 Intake Total 100 / 100 650 / 650 Balance 100 / 100 650 / 650 Weight (kg) 82 kg Objective General Appearance: positive No acute distress and Alert; negative Anxious Eyes Bilateral: positive Normal inspection, PERRL and EOMI ENT: positive ENT inspection nml, Pharynx nml and No signs of dehydration Neck: positive Nml inspection, Thyroid nml and No JVD Respiratory: positive Chest non-tender, No respiratory distress, Breath sounds nml and Other (diminished breath sounds in RLL); negative Wheezes, Rales or Rhonchi Cardiovascular: positive Regular rate & rhythm, No murmur and No gallop Abdomen: positive Non-tender, No organomegaly, Nml bowel sounds and No distention; negative Guarding or Splenomegaly Back: positive Nml inspection; negative CVA tenderness (R) or CVA tenderness (L) Skin: positive Color nml, No rash, Warm and Dry Extremities: positive Non-tender, Full ROM, Nml appearance and No pedal edema Neurologic/Psychiatric: positive Oriented x3, Motor nml, Sensation nml and Mood/affect nml Lab Results 06/28/24 17:03 06/28/24 17:03 Other Labs: Lab Results x24hrs 06/28/24 06/28/24 06/28/24 Range/Units 18:53 18:41 17:11 WBC (4.8-10.8) x10^3/uL RBC (4.20-5.40) 10^6/uL Hgb (12.0-16.0) g/dL Hct (37.0-47.0) % MCV (81.0-99.0) fL MCH (27.0-31.0) pg MCHC (32.0-36.0) g/dL RDW (12.0-15.0) % Plt Count (130-450) 10^3/uL MPV (7.9-10.8) fL Neut # (Auto) (1.5-6.6) 10^3/uL Lymph # (Auto) (1.5-3.5) 10^3/uL [place] # (Auto) (0.0-1.0) 10^3/uL Eos # (Auto) (0.0-0.7) 10^3/uL Baso # (Auto) (0.0-0.1) 10^3/uL Absolute Nucleated RBC x10^3/uL Nucleated RBC % /100WBC PT (9.9-12.6) secs INR (0.8-1.2) Sodium (135-145) mmol/L Potassium (3.5-4.5) mmol/L Chloride (101-111) mmol/L Carbon Dioxide (21-32) mmol/L Anion Gap (6-13) BUN (6-20) mg/dL Creatinine (0.6-1.3) mg/dL Estimated GFR (MDRD) (>89) Glucose (74-104) mg/dL Lactic Acid 1.0 (0.5-2.2) mmol/L Calcium (8.5-10.3) mg/dL Total Bilirubin (0.2-1.0) mg/dL AST (10-42) IU/L ALT (10-60) IU/L Alkaline Phosphatase (42-121) IU/L Troponin I High Sens (2.3-14.8) ng/L Total Protein (6.4-8.9) g/dL Albumin (3.2-5.5) g/dL Globulin (2.1-4.2) g/dL Albumin/Globulin Ratio (1.0-2.2) Urine Color DARK YELLOW Urine Clarity HAZY (CLEAR) Urine pH 6.0 (5.0-7.5) PH Ur Specific Ethan 1.025 (1.002-1.030) Urine Protein NEGATIVE (NEGATIVE) mg/dL Urine Glucose (UA) NEGATIVE (NEGATIVE) mg/dL Urine Ketones NEGATIVE (NEGATIVE) mg/dL Urine Occult Blood TRACE-INTA (NEGATIVE) Urine Nitrite NEGATIVE (NEGATIVE) Urine Bilirubin NEGATIVE (NEGATIVE) Urine Urobilinogen 0.2 (NORMAL) (NORMAL) E.U./dL Ur Leukocyte Esterase MODERATE H (NEGATIVE) Urine RBC 0-5 (0-5) /HPF Urine WBC >25 H (0-5) /HPF Ur Squamous Epith Cells MOD Squamous H (<= Few) Urine Bacteria Many H (None Seen) /HPF Ur Microscopic Review INDICATED Urine Culture Comments NOT INDICATED Nasal Adenovirus (PCR) NOT DETECTED Nasal B. parapertussis DNA (PCR) NOT DETECTED Nasal Coronavir 229E PCR NOT DETECTED Nasal Coronavir HKU1 PCR NOT DETECTED Nasal Coronavir NL63 PCR NOT DETECTED Nasal Coronavir OC43 PCR NOT DETECTED Nasal Enterovir/Rhinovir PCR NOT DETECTED Nasal Influenza B PCR NOT DETECTED Nasal Influenza A PCR NOT DETECTED Nasal Parainfluen 1 PCR NOT DETECTED Nasal Parainfluen 2 PCR NOT DETECTED Nasal Parainfluen 3 PCR NOT DETECTED Nasal Parainfluen 4 PCR NOT DETECTED Nasal RSV (PCR) NOT DETECTED Nasal B.pertussis DNA PCR NOT DETECTED Nasal C.pneumoniae (PCR) NOT DETECTED Demetrio Human Metapneumo PCR NOT DETECTED Nasal M.pneumoniae (PCR) NOT DETECTED Nasal SARS-CoV-2 (PCR) NOT DETECTED 06/28/24 Range/Units 17:03 WBC 8.5 (4.8-10.8) x10^3/uL RBC 3.81 L (4.20-5.40) 10^6/uL Hgb 11.9 L (12.0-16.0) g/dL Hct 36.3 L (37.0-47.0) % MCV 95.3 (81.0-99.0) fL MCH 31.2 H (27.0-31.0) pg MCHC 32.8 (32.0-36.0) g/dL RDW 14.5 (12.0-15.0) % Plt Count 120 L (130-450) 10^3/uL MPV 10.5 (7.9-10.8) fL Neut # (Auto) 8.1 H (1.5-6.6) 10^3/uL Lymph # (Auto) 0.2 L (1.5-3.5) 10^3/uL [place] # (Auto) 0.2 (0.0-1.0) 10^3/uL Eos # (Auto) 0.0 (0.0-0.7) 10^3/uL Baso # (Auto) 0.0 (0.0-0.1) 10^3/uL Absolute Nucleated RBC 0.00 x10^3/uL Nucleated RBC % 0.0 /100WBC PT 15.8 H (9.9-12.6) secs INR 1.4 H (0.8-1.2) Sodium 136 (135-145) mmol/L Potassium 4.1 (3.5-4.5) mmol/L Chloride 103 (101-111) mmol/L Carbon Dioxide 24 (21-32) mmol/L Anion Gap 9.0 (6-13) BUN 23 H (6-20) mg/dL Creatinine 1.0 (0.6-1.3) mg/dL Estimated GFR (MDRD) 53 L (>89) Glucose 118 H (74-104) mg/dL Lactic Acid (0.5-2.2) mmol/L Calcium 9.4 (8.5-10.3) mg/dL Total Bilirubin 1.6 H (0.2-1.0) mg/dL AST 17 (10-42) IU/L ALT 16 (10-60) IU/L Alkaline Phosphatase 68 (42-121) IU/L Troponin I High Sens 8.0 (2.3-14.8) ng/L Total Protein 6.1 L (6.4-8.9) g/dL Albumin 3.7 (3.2-5.5) g/dL Globulin 2.4 (2.1-4.2) g/dL Albumin/Globulin Ratio 1.5 (1.0-2.2) Urine Color Urine Clarity (CLEAR) Urine pH (5.0-7.5) PH Ur Specific Ethan (1.002-1.030) Urine Protein (NEGATIVE) mg/dL Urine Glucose (UA) (NEGATIVE) mg/dL Urine Ketones (NEGATIVE) mg/dL Urine Occult Blood (NEGATIVE) Urine Nitrite (NEGATIVE) Urine Bilirubin (NEGATIVE) Urine Urobilinogen (NORMAL) E.U./dL Ur Leukocyte Esterase (NEGATIVE) Urine RBC (0-5) /HPF Urine WBC (0-5) /HPF Ur Squamous Epith Cells (<= Few) Urine Bacteria (None Seen) /HPF Ur Microscopic Review Urine Culture Comments Nasal Adenovirus (PCR) Nasal B. parapertussis DNA (PCR) Nasal Coronavir 229E PCR Nasal Coronavir HKU1 PCR Nasal Coronavir NL63 PCR Nasal Coronavir OC43 PCR Nasal Enterovir/Rhinovir PCR Nasal Influenza B PCR Nasal Influenza A PCR Nasal Parainfluen 1 PCR Nasal Parainfluen 2 PCR Nasal Parainfluen 3 PCR Nasal Parainfluen 4 PCR Nasal RSV (PCR) Nasal B.pertussis DNA PCR Nasal C.pneumoniae (PCR) Demetrio Human Metapneumo PCR Nasal M.pneumoniae (PCR) Nasal SARS-CoV-2 (PCR) Diagnostic Imaging Diagnostic Imaging Results: positive Final report reviewed Assessment/Plan Problem List (1) Pneumonia: Impression: Patient presented with fevers at home, increased cough with some mild sputum production, as well as dyspnea. She required 2 L of oxygen on admission, which has been weaned off to room air. She still endorses some dyspnea, especially worsened with exertion. Chest CT was completed which shows no pulmonary embolus, new prevascular mass measuring 5.4 cm, as well as new left-sided pulmonary nodules, concerning for recurrent malignancy. She also has a right middle lobectomy and right upper lobectomy. Her fevers and increased cough are concerning for a superimposed pneumonia on top of her immunocompromise state and poor lung reserve. Will continue IV Rocephin and azithromycin for today. Will reach out to her data analytics architect, Dr. Brambila. Qualifiers: Laterality: unspecified laterality Lung location: unspecified part of lung Pneumonia type: due to unspecified organism Qualified Code(s): J18.9 - Pneumonia, unspecified organism (2) Acute hypoxemic respiratory failure: Impression: Resolving. Patient is being weaned off of oxygen. 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 She is currently on active chemotherapy. Will update her oncologist about this recent stay. (4) Breast cancer: Impression: Patient is actively following up with oncology for multiple malignancies including sarcoma, lung cancer, as well as a remote history of breast cancer. She is currently on active chemotherapy. Will update her oncologist about this recent stay. Qualifiers: Breast location: unspecified site of breast Estrogen receptor status: u nspecified Laterality: unspecified laterality Patient sex: female Qualified Code(s): C50.919 - Malignant neoplasm of unspecified site of unspecified female breast (5) Cancer of right lung: Impression: Patient is actively following up with oncology for multiple malignancies including sarcoma, lung cancer, as well as a remote history of breast cancer. She is currently on active chemotherapy. Will update her oncologist about this recent stay. Qualifiers: Lung location: upper lobe of lung Qualified Code(s): C34.11 - Malignant neoplasm of upper lobe, right bronchus or lung
[2024-06-29] MEDS ORDERED: AZITHROMYCIN INJ 500 MG in SODIUM CHLORIDE 0.9% 250 ML IV SCH (09:00)
[2024-06-29] MEDS: AZITHROMYCIN INJ 500 MG in SODIUM CHLORIDE 0.9% 250 ML IV SCH (09:07)
[2024-06-29] MEDS ORDERED: oxyCODONE 5 MG TABLET PO PRN (11:01)
[2024-06-29] MEDS ORDERED: CARBOXYMETHYLCELLULOSE OPHTH DROPS EACHEYE PRN (11:25)
--- NOTE | 2024-06-29 12:27 | PHARMACY PROGRESS NOTE ---
Best Possible Medication History Admit Date and Time: 06/28/24 2156 Home Medications Medication Instructions Recorded Confirmed Type magnesium 250 mg tablet 25 mg PO BID 03/19/18 06/28/24 History calcium carbonate 2 tab PO UD 10/01/23 06/28/24 History diphenhydramine HCl 25 mg capsule 25 mg PO PRN PRN Insomnia 10/01/23 06/28/24 History (Banophen) exemestane 25 mg tablet (Aromasin) 25 mg PO DAILY 10/01/23 06/28/24 History ascorbic acid 1,000 1,000 mg PO DAILY 11/28/23 06/28/24 History [id number] powder effervescent pack (Vitamin C Powder Blend) carboxymethylcellulose sodium 0.5 1 ea ophthalmic (eye) DAILY PRN 11/28/23 06/28/24 History % eye drops in a dropperette Dry Eye (Refresh Plus) cholecalciferol (vitamin D3) 125 5,000 unit PO DAILY 11/28/23 06/28/24 History mcg (5,000 unit) capsule furosemide 40 mg tablet 40 mg PO DAILY 06/28/24 06/29/24 History acetaminophen 325 mg tablet (Pain 650 mg PO Q4H PRN fever or pain 06/29/24 06/29/24 History Reliever (acetaminophen)) potassium chloride 10 mEq 20 meq PO DAILY 06/29/24 06/29/24 History capsule,extended release Processed by: Pharmacy Medications reviewed in ED?: No Medication History completed: Yes Patient Interview: Completed Secondary Source(s): Pharmacy records and Insurance records [facility] Statement: As the person ultimately responsible for medication therapy, providers are able to order a medication from an existing home medication list in [facility] via the "Reconcile Routine" prior to Confirmation of that medication by linux support engineer. Such practice is discouraged except when the physician, in their clinical judgment, deems that a medical need exists for a medication without regard to previous use.
[2024-06-29] MEDS: CALCIUM CARBONATE CHEW 500 MG TABLET PO SCH (12:47)
[2024-06-29] MEDS: MAGNESIUM OXIDE 400 MG TABLET PO SCH (20:25)
[2024-06-29 21:00] LABS: CREATININE 0.8 mg/dL (0.6-1.3); MAGNESIUM 1.8 mg/dL (1.7-2.3); POTASSIUM 3.8 mmol/L (3.5-4.5)
[2024-06-29] MEDS: POTASSIUM CHLORIDE 20 MEQ TABLET PO ONE (22:19)
[2024-06-29] MEDS: VANCOMYCIN INJ 1 GM, VANCOMYCIN INJ 500 MG in SODIUM CHLORIDE 0.9% 500 ML IV SCH (22:49)
[2024-06-29] MEDS: MAGNESIUM SULFATE 2 GRAM 2 GM/50 ML BAG IV ONE (23:50)
[2024-06-30 05:19] LABS: HCT - HEMATOCRIT 30.4 % (37.0-47.0); HGB - HEMOGLOBIN 9.9 g/dL (12.0-16.0); MEAN CORPUSCULAR HEMOGLOBIN 31.4 pg (27.0-31.0); MEAN CORPUSCULAR HGB CONC 32.6 g/dL (32.0-36.0); MEAN CORPUSCULAR VOLUME 96.5 fL (81.0-99.0); MEAN PLATELET VOLUME 10.4 fL (7.9-10.8); RED BLOOD COUNT 3.15 10^6/uL (4.20-5.40); RED CELL DISTRIBUTION WIDTH 14.5 % (12.0-15.0); WHITE BLOOD COUNT 4.6 x10^3/uL (4.8-10.8)
[2024-06-30] MEDS: ACETAMINOPHEN 325 MG TABLET PO PRN (05:31)
[2024-06-30 05:32] LABS: CALCIUM 9.1 mg/dL (8.5-10.3); CREATININE 0.8 mg/dL (0.6-1.3); POTASSIUM 4.2 mmol/L (3.5-4.5)
[2024-06-30] MEDS: MULTIVITAMIN TABLET PO SCH (08:36)
[2024-06-30] MEDS: ASCORBIC ACID 500 MG TABLET PO SCH (08:36)
[2024-06-30] MEDS: EXEMESTANE 25 MG PO SCH (08:37)
[2024-06-30] MEDS: CHOLECALCIFEROL 5,000 UNIT CAPSULE PO SCH (09:10)
--- NOTE | 2024-06-30 09:56 | Discharge Summary ---
"Discharge Summary Admit Date: 06/28/24 Discharge Date: 06/30/24 Discharging Provider: Dr. Zita Nichols Primary Care Provider: Brooklyn Barr Code Status: Attempt Resuscitation Discharge Facility Name: Home with Home Health DIAGNOSES Admission Diagnoses: Acute hypoxic respiratory failure Pneumonia UTI H/O lung cancer on chemo Discharge Diagnoses with Status of Each Condition: Pneumonia Acute hypoxemic respiratory failure Undifferentiated pleomorphic sarcoma Breast cancer Cancer of right lung HPI History of Present Illness: Per Dr. Hughes: 79 y old female with PMH Lung cancer on chemo presented to ER due to fever, cough and shortness of breath for 2 days Pt had chemo yesterday On presentation, pt was febrile, tachypnic CTA chest neg for PE In ER, pt was given IV ceftriaxone Pt is admitted due to Acute hypoxic respiratory failure due to pneumonia and UTI CONSULTS | PROCEDURES Procedures: Chest x-ray, CTA ALLERGIES Allergies Allergy/AdvReac Type Severity Reaction Status Date / Time ibuprofen Allergy Edema Verified 06/28/24 15:58 lactose AdvReac Cramps Verified 06/28/24 15:58 crab shells Allergy Mild Hives Uncoded 06/28/24 15:58 MEDICATIONS Ambulatory Orders Medication Instructions Recorded Confirmed magnesium 250 mg tablet 25 mg PO BID 03/19/18 06/28/24 calcium carbonate 2 tab PO UD 10/01/23 06/28/24 diphenhydramine HCl 25 mg capsule 25 mg PO PRN PRN Insomnia 10/01/23 06/28/24 (Banophen) exemestane 25 mg tablet (Aromasin) 25 mg PO DAILY 10/01/23 06/28/24 ascorbic acid 1,000 1,000 mg PO DAILY 11/28/23 06/28/24 [id number] powder effervescent pack (Vitamin C Powder Blend) carboxymethylcellulose sodium 0.5 1 ea ophthalmic (eye) DAILY PRN 11/28/23 06/28/24 % eye drops in a dropperette Dry Eye (Refresh Plus) cholecalciferol (vitamin D3) 125 5,000 unit PO DAILY 11/28/23 06/28/24 mcg (5,000 unit) capsule furosemide 40 mg tablet 40 mg PO DAILY 06/28/24 06/29/24 acetaminophen 325 mg tablet (Pain 650 mg PO Q4H PRN fever or pain 06/29/24 06/29/24 Reliever (acetaminophen)) potassium chloride 10 mEq 20 meq PO DAILY 06/29/24 06/29/24 capsule,extended release amoxicillin 875 mg-potassium 1 tab PO BID 3 days #6 tabs 06/30/24 clavulanate 125 mg tablet azithromycin 500 mg tablet 500 mg PO DAILY 1 day #1 tab 06/30/24 PHYSICAL EXAM AT DISCHARGE Vital Signs: Vital Signs x48h Temp Pulse Pulse Resp BP Pulse Ox 06/30/24 11:45 97.9 F 80 20 127/71 98 06/30/24 09:23 100 06/30/24 08:53 97.7 F 86 20 144/75 H 99 General Appearance: positive No acute distress and Alert; negative Anxious Eyes Bilateral: positive Normal inspection, PERRL and EOMI ENT: positive ENT inspection nml, Pharynx nml and No signs of dehydration Neck: positive Nml inspection, Thyroid nml and No JVD Respiratory: positive Chest non-tender, No respiratory distress, Breath sounds nml and Other (diminished breath sounds in bilateral bases ); negative Wheezes, Rales or Rhonchi Cardiovascular: positive Regular rate & rhythm, No murmur and No gallop Peripheral Pulses: positive 2+ Abdomen: positive Non-tender, No organomegaly, Nml bowel sounds and No distention Back: positive Nml inspection; negative CVA tenderness (R) or CVA tenderness (L) Skin: positive Color nml, No rash, Warm and Dry Extremities: positive Non-tender, Full ROM, Nml appearance and No pedal edema Neurologic/Psychiatric: positive Oriented x3 and Mood/affect nml LABS 06/30/24 04:49 06/30/24 04:49 DIAGNOSTIC IMAGING Diagnostic Imaging Results: Final report reviewed FOLLOW UP Follow Up: Follow up with primary care provider. Follow up with oncologist. Follow up with therapist's assistant. TIME SPENT Time Spent in Discharge (Minutes): 35 Discharge Plan Discharge Patient Disposition: Home, Self Care Condition: Stable Prescriptions: New azithromycin 500 mg tablet 500 mg PO DAILY 1 Days Qty: 1 0RF amoxicillin-pot clavulanate 875-125 mg tablet 1 tab PO BID 3 Days Qty: 6 0RF Continued magnesium 250 MG tablet 25 mg PO BID Patient Comments: instill 1 drop into left eye twice a day for 7 days calcium carbonate 600 MG tablet 2 tab PO UD Rx Instructions: 2 tablets w/ every meal. exemestane [Aromasin] 25 MG tablet 25 mg PO DAILY Rx Instructions: Says she may have forgotten to take these recently. diphenhydramine HCl [Banophen] 25 MG capsule 25 mg PO PRN PRN (Reason: Insomnia) Rx Instructions: says that she has been taking Oxycodone/hydromorphone more recently and hasn't been taking as often for insomnia. cholecalciferol (vitamin D3) 5,000 UNIT capsule 5,000 unit PO DAILY carboxymethylcellulose sodium [Refresh Plus] 1 EACH dropperette 1 ea ophthalmic (eye) DAILY PRN (Reason: Dry Eye) Vitamin C Powder Blend 1,000 MG powder effervescent in packet 1,000 mg PO DAILY furosemide 40 mg tablet 40 mg PO DAILY potassium chloride 10 mEq capsule, extended release 20 meq PO DAILY acetaminophen [Pain Reliever (acetaminophen)] 325 mg tablet 650 mg PO Q4H PRN (Reason: fever or pain) Activity Restrictions: Activity as Tolerated Diet: Regular Health Concerns: You came in because you were having some shortness of breath at home. Your home nurse had noted that you had a fever, and were coughing more. We did repeat your chest CT, and we talked about your results. You do have some new lung nodules on your left lung, as well as a mass in your mediastinal area. I am going to have these CT scan results sent to your oncologist; I am glad you have an appointment this week so they can follow-up with you closely regarding this. I would like you to complete your course of antibiotics, I have sent this to your pharmacy. I understand that you have oxygen at home as needed. Please use this if your oxygen levels drop below 88%. We are glad you are feeling better, thanks for letting us take care of you. Print Language: Irish Patient Instructions: Pneumonia, Pneumonia Dc Stand Alone Forms: PCP List"
[2024-06-30] MEDS: AZITHROMYCIN INJ 500 MG in SODIUM CHLORIDE 0.9% 250 ML IV SCH (10:52)
[2024-06-30 11:47] VITALS: BP 127/71; TEMP 97.9; O2SAT 98
== END 2024-06-30 14:14 | disposition home or self-care (01) | DRG 193 ==
LOC: ED 15:52 → MS2 21:56
PROVIDERS: ADMIT Internal Medicine; ATTEND Internal Medicine